=== PATIENT | female | born 1990 | race Caucasian/White ===

== ENCOUNTER 2016-08-27 06:44 | Emergency (ER) | payer OTHER ==
[2016-08-27] MEDS ORDERED: ONDANSETRON 4 MG ORAL DISINTEGRATING TAB (S0181) As Ordered ONE (07:18)
--- NOTE | 2016-08-27 07:24 | EDDOCDS ---
Nurse's Notes [facility] Name: Myranda Up Age: 25 yrs Sex: Female : 1990 Arrival Date: 08/27/2016 Time: 06:44 Bed I2 / M2 Private MD: Diagnosis: Vomiting;Diarrhea, unspecified Presentation: 08/27 06:54 Presenting complaint: Patient states: Patient with complaint of nausea, vomiting, and cf2 diarrhea that started approx 2030 last night accompanied by "chills and shakes" Patient points to periumbilical area to identify pain. States unable to "hold down nothing". Adult Sepsis Screening: The patient does not have new or worsening altered mentation. Patient's respiratory rate is less than 22. Systolic blood pressure is greater than 100. Patient has a qSOFA score of 0- Negative Sepsis Screen. Suicide/Homicide risk assessment- the patient denies having any suicidal and/or homicidal ideations and does not present with any other emotional, behavioral or mental health complaints. Status: Patient is not a respiratory services manager or dependent. Transition of care: patient was not received from another setting of care. 06:54 Acuity: LARISA Level 3 cf2 06:54 Method Of Arrival: Walkin/Carried/Asstd cf2 Triage Assessment: 06:59 General: Appears distressed, Behavior is anxious, appropriate for age, cooperative. cf2 Pain: Location: abdomen. Pt Declines HIV testing. GI: Abdomen is flat, non- distended Abd is soft Abd is tender to palpation X 4 quads. Reports cramping, diarrhea, nausea, vomiting, Pain is 8 out of 10 on a pain scale. 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 Celexa Oral once daily 2. Prilosec 20 mg Oral cpDR 1 cap once daily - PMHx: Anxiety; GERD; - Social history: Smoking status: Patient uses tobacco products, heavy tobacco smoker. Race: White, Ethnicity: Not or No barriers to communication noted, Preferred Language: Chinese. - Family history: Not pertinent. - : The pt / caregiver states he / she is not on anticoagulants. Home medication list is obtained from the patient. - Exposure Risk Screening:: None identified. Screenin:22 Screening information is obtained from the patient. Fall risk: No risks identified. mcp Assistance ADL's: requires no assistance with activities of daily living. Abuse/DV Screen: The patient / caregiver reports he/she is: not in a situation that causes fear, pain or injury. Nutritional screening: No deficits noted. Advance Directives: There is no active DNR order. home support is adequate. Assessment: 07:22 General: Appears in no apparent distress, Behavior is cooperative. Pain: Location: mcp abdomen Pain currently is 4 out of 10 on a pain scale. Neurological: No deficits noted. Respiratory: Airway is patent Respiratory effort is even, unlabored. GI: Abdomen is non- distended Bowel sounds present X 4 quads. Abd is soft X 4 quads Reports diarrhea, nausea, vomiting. Derm: Skin is pink, warm & dry. Vital Signs: 06:59 BP 131 / 60; Pulse 122; Resp 18; Temp 99.0(O); Pulse Ox 99% on R/A; Weight 77.11 kg; cf2 Height 5 ft. 5 in. (165.10 cm); Pain 8/10; 06:59 Body Mass Index 28.29 (77.11 kg, 165.10 cm) cf2 Vitals: 07:23 Log In Time: August 27, 2016 at 06:44. [facility] ED Course: 06:45 Patient visited by Eduardo Bowens, Reg. pm4 06:45 Patient moved to Waiting pm4 06:58 Triage Initiated cf2 07:01 Roberto Brown PA is PHCP. btw 07:01 Joceline Goss MD is Attending Physician. btw 07:01 Patient moved to 17 cf2 07:03 Patient moved to I2 / M2 cf2 07:06 Patient visited by Roberto Brown PA. btw 07:22 The patient / caregiver is instructed regarding the plan of care and ED course. Patient mcp has correct armband on for positive identification. Bed in low position. Call light in reach. 07:22 No IV's were initiated during this patient's visit. No procedures done that require mcp assistance. Administered Medications: 07:21 Drug: Ondansetron ODT 4 mg [ondansetron 4 mg disintegrating tablet (1 tabs)] Route: PO; mcp Order Results: There are currently no results for this order. Outcome: 07:14 Discharge ordered by Provider. btw 07:23 Discharge Assessment: patient administered narcotics - no. The following High Risk [facility] Discharge criteria are identified: None. Discharged to home ambulatory. Condition: stable. Discharge instructions given to patient, Instructed on discharge instructions, follow up and referral plans. medication usage, diet, Demonstrated understanding of instructions, medications, Pt was receptive of discharge instructions/ teaching. Prescriptions given X 1. No special radiology studies were completed. Property sent home with patient. 07:23 Patient left the ED. [facility] Signatures: Leigh Ann Lozoya RN RN Roberto Soriano PA PA btw Domonique Schultz RN RN cf2 Eduardo Bowens, Reg Reg pm4 MTDD
--- NOTE | 2016-08-27 07:24 | EDDOCDS ---
Physician Documentation [facility] Name: Myranda Up Age: 25 yrs Sex: Female : 1990 Arrival Date: 08/27/2016 Time: 06:44 Bed I2 / M2 Private MD: Disposition: 08/27/16 07:14 Discharged to Home/Self Care. Impression: Vomiting, Diarrhea, unspecified. - Condition is Stable. - Discharge Instructions: Viral Gastroenteritis, [id number]. - Prescriptions for ZOFRAN ODT 4 mg - dissolve 1 tablet by ORAL route 4 times per day As needed do not chew, do not swallow whole; 10 tablet. - Medication Reconciliation, Local Pharmacy Hours form. - Follow up: Private Physician; When: Call to arrange an appointment; Reason: Further diagnostic work-up, Recheck today's complaints, Continuance of care. - Problem is new. - Symptoms are unchanged. Historical: - Allergies: Latex; - Home Meds: 1. Celexa Oral once daily 2. Prilosec 20 mg Oral cpDR 1 cap once daily - PMHx: Anxiety; GERD; - Social history: Smoking status: Patient uses tobacco products, heavy tobacco smoker. Race: White, Ethnicity: Not or No barriers to communication noted, Preferred Language: Montenegrin. - Family history: Not pertinent. - : The pt / caregiver states he / she is not on anticoagulants. Home medication list is obtained from the patient. - Exposure Risk Screening:: None identified. 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 5 in. (165.10 cm); Pain 8/10; 06:59 Body Mass Index 28.29 (77.11 kg, 165.10 cm) cf2 MDM: 07:13 Ondansetron ODT Oral Disintegrating Tablet 4 mg PO once ordered. btw 07:23 Financial registration complete. hs2 Administered Medications: 07:21 Drug: Ondansetron ODT 4 mg [ondansetron 4 mg disintegrating tablet (1 tabs)] Route: PO; contra [facility] Signatures: Leigh Ann Lozoya RN RN Roberto Soriano PA PA btw Stanton, Hillary, Reg Reg hs2 Domonique Schultz,RN RN cf2 MTDD
--- NOTE | 2016-08-29 08:24 | EDDOCDS ---
Nurse's Notes [facility] Name: Myranda Up Age: 25 yrs Sex: Female : 1990 Arrival Date: 08/27/2016 Time: 06:44 Bed I2 / M2 Private MD: Diagnosis: Vomiting;Diarrhea, unspecified Presentation: 08/27 06:54 Presenting complaint: Patient states: Patient with complaint of nausea, vomiting, and cf2 diarrhea that started approx 2030 last night accompanied by "chills and shakes" Patient points to periumbilical area to identify pain. States unable to "hold down nothing". Adult Sepsis Screening: The patient does not have new or worsening altered mentation. Patient's respiratory rate is less than 22. Systolic blood pressure is greater than 100. Patient has a qSOFA score of 0- Negative Sepsis Screen. Suicide/Homicide risk assessment- the patient denies having any suicidal and/or homicidal ideations and does not present with any other emotional, behavioral or mental health complaints. Status: Patient is not a human services care specialist or dependent. Transition of care: patient was not received from another setting of care. 06:54 Acuity: LARISA Level 3 cf2 06:54 Method Of Arrival: Walkin/Carried/Asstd cf2 Triage Assessment: 06:59 General: Appears distressed, Behavior is anxious, appropriate for age, cooperative. cf2 Pain: Location: abdomen. Pt Declines HIV testing. GI: Abdomen is flat, non- distended Abd is soft Abd is tender to palpation X 4 quads. Reports cramping, diarrhea, nausea, vomiting, Pain is 8 out of 10 on a pain scale. 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 Celexa Oral once daily 2. Prilosec 20 mg Oral cpDR 1 cap once daily - PMHx: Anxiety; GERD; - Social history: Smoking status: Patient uses tobacco products, heavy tobacco smoker. Race: White, Ethnicity: Not or No barriers to communication noted, Preferred Language: Italian. - Family history: Not pertinent. - : The pt / caregiver states he / she is not on anticoagulants. Home medication list is obtained from the patient. - Exposure Risk Screening:: None identified. Screenin:22 Screening information is obtained from the patient. Fall risk: No risks identified. mcp Assistance ADL's: requires no assistance with activities of daily living. Abuse/DV Screen: The patient / caregiver reports he/she is: not in a situation that causes fear, pain or injury. Nutritional screening: No deficits noted. Advance Directives: There is no active DNR order. home support is adequate. Assessment: 07:22 General: Appears in no apparent distress, Behavior is cooperative. Pain: Location: mcp abdomen Pain currently is 4 out of 10 on a pain scale. Neurological: No deficits noted. Respiratory: Airway is patent Respiratory effort is even, unlabored. GI: Abdomen is non- distended Bowel sounds present X 4 quads. Abd is soft X 4 quads Reports diarrhea, nausea, vomiting. Derm: Skin is pink, warm & dry. Vital Signs: 06:59 BP 131 / 60; Pulse 122; Resp 18; Temp 99.0(O); Pulse Ox 99% on R/A; Weight 77.11 kg; cf2 Height 5 ft. 5 in. (165.10 cm); Pain 8/10; 06:59 Body Mass Index 28.29 (77.11 kg, 165.10 cm) cf2 Vitals: 07:23 Log In Time: August 27, 2016 at 06:44. [facility] ED Course: 06:45 Patient visited by Eduardo Bowens, Reg. pm4 06:45 Patient moved to Waiting pm4 06:58 Triage Initiated cf2 07:01 Roberto Brown PA is PHCP. btw 07:01 Joceline Goss MD is Attending Physician. btw 07:01 Patient moved to 17 cf2 07:03 Patient moved to I2 / M2 cf2 07:06 Patient visited by Roberto Brown PA. btw 07:22 The patient / caregiver is instructed regarding the plan of care and ED course. Patient mcp has correct armband on for positive identification. Bed in low position. Call light in reach. 07:22 No IV's were initiated during this patient's visit. No procedures done that require mcp assistance. 07:25 [facility] Payment Agreement was scanned into [employer] and attached to record. hs2 08/28 17:26 T-Sheet-- Draft Copy was scanned into [employer] and attached to record. klr Administered Medications: 02/02 07:21 Drug: Ondansetron ODT 4 mg [ondansetron 4 mg disintegrating tablet (1 tabs)] Route: PO; [facility] Order Results: There are currently no results for this order. Outcome: 07:14 Discharge ordered by Provider. bt 07:23 Discharge Assessment: patient administered narcotics - no. The following High Risk [facility] Discharge criteria are identified: None. Discharged to home ambulatory. Condition: stable. Discharge instructions given to patient, Instructed on discharge instructions, follow up and referral plans. medication usage, diet, Demonstrated understanding of instructions, medications, Pt was receptive of discharge instructions/ teaching. Prescriptions given X 1. No special radiology studies were completed. Property sent home with patient. 07:23 Patient left the ED. [facility] Signatures: Leigh Ann Lozoya RN RN Roberto Soriano PA PA btDaja Morrow, Reg Reg hs2 Desiree Aragon Christina, RN RN cf2 Eduardo Bowens, Reg Reg pm4 Chart Complete EDGAR
--- NOTE | 2016-08-29 08:24 | EDDOCDS ---
Physician Documentation [facility] Name: Myranda Up Age: 25 yrs Sex: Female : 1990 Arrival Date: 08/27/2016 Time: 06:44 Bed I2 / M2 Private MD: Disposition: 08/27/16 07:14 Discharged to Home/Self Care. Impression: Vomiting, Diarrhea, unspecified. - Condition is Stable. - Discharge Instructions: Viral Gastroenteritis, [id number]. - Prescriptions for ZOFRAN ODT 4 mg - dissolve 1 tablet by ORAL route 4 times per day As needed do not chew, do not swallow whole; 10 tablet. - Medication Reconciliation, Local Pharmacy Hours form. - Follow up: Private Physician; When: Call to arrange an appointment; Reason: Further diagnostic work-up, Recheck today's complaints, Continuance of care. - Problem is new. - Symptoms are unchanged. Historical: - Allergies: Latex; - Home Meds: 1. Celexa Oral once daily 2. Prilosec 20 mg Oral cpDR 1 cap once daily - PMHx: Anxiety; GERD; - Social history: Smoking status: Patient uses tobacco products, heavy tobacco smoker. Race: White, Ethnicity: Not or No barriers to communication noted, Preferred Language: [place] Islander. - Family history: Not pertinent. - : The pt / caregiver states he / she is not on anticoagulants. Home medication list is obtained from the patient. - Exposure Risk Screening:: None identified. 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 5 in. (165.10 cm); Pain 8/10; 06:59 Body Mass Index 28.29 (77.11 kg, 165.10 cm) cf2 MDM: 07:13 Ondansetron ODT Oral Disintegrating Tablet 4 mg PO once ordered. btw 07:23 Financial registration complete. hs2 07:25 [facility] Payment Agreement was scanned into [employer] and attached to record. hs2 08/28 17:26 T-Sheet-- Draft Copy was scanned into [employer] and attached to record. klr Administered Medications: 08/27 07:21 Drug: Ondansetron ODT 4 mg [ondansetron 4 mg disintegrating tablet (1 tabs)] Route: PO; mar[facility] Signatures: Leigh Ann Lozoya RN RN mcp Wolfenden, Brandon, PA PA btw Daja Clements, Reg Reg hs2 Desiree Aragon Christina, RN RN cf2 The chart was reviewed and I authenticate all verbal orders and agree with the evaluation and treatment provided.Attachments: 07:25 [facility] Payment Agreement hs2 08/28 17:26 T-Sheet-- Draft Copy klr Chart Complete MTDD
--- NOTE | 2016-08-29 08:24 | EDDOCDS ---
Physician Documentation [facility] Name: Myranda Up Age: 25 yrs Sex: Female : 1990 Arrival Date: 08/27/2016 Time: 06:44 Bed I2 / M2 Private MD: Disposition: 08/27/16 07:14 Discharged to Home/Self Care. Impression: Vomiting, Diarrhea, unspecified. - Condition is Stable. - Discharge Instructions: Viral Gastroenteritis, [id number]. - Prescriptions for ZOFRAN ODT 4 mg - dissolve 1 tablet by ORAL route 4 times per day As needed do not chew, do not swallow whole; 10 tablet. - Medication Reconciliation, Local Pharmacy Hours form. - Follow up: Private Physician; When: Call to arrange an appointment; Reason: Further diagnostic work-up, Recheck today's complaints, Continuance of care. - Problem is new. - Symptoms are unchanged. Historical: - Allergies: Latex; - Home Meds: 1. Celexa Oral once daily 2. Prilosec 20 mg Oral cpDR 1 cap once daily - PMHx: Anxiety; GERD; - Social history: Smoking status: Patient uses tobacco products, heavy tobacco smoker. Race: White, Ethnicity: Not or No barriers to communication noted, Preferred Language: Romanian. - Family history: Not pertinent. - : The pt / caregiver states he / she is not on anticoagulants. Home medication list is obtained from the patient. - Exposure Risk Screening:: None identified. 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 5 in. (165.10 cm); Pain 8/10; 06:59 Body Mass Index 28.29 (77.11 kg, 165.10 cm) cf2 MDM: 07:13 Ondansetron ODT Oral Disintegrating Tablet 4 mg PO once ordered. btw 07:23 Financial registration complete. hs2 07:25 [facility] Payment Agreement was scanned into [employer] and attached to record. hs2 08/28 17:26 T-Sheet-- Draft Copy was scanned into [employer] and attached to record. klr Administered Medications: 08/27 07:21 Drug: Ondansetron ODT 4 mg [ondansetron 4 mg disintegrating tablet (1 tabs)] Route: PO; marisol Signatures: Leigh Ann Lozoya RN RN mcp Wolfenden, Brandon, PA PA btw Daja Clements, Reg Reg hs2 Desiree Aragon Christina, RN RN cf2 The chart was reviewed and I authenticate all verbal orders and agree with the evaluation and treatment provided.Attachments: 07:25 [facility] Payment Agreement hs2 08/28 17:26 T-Sheet-- Draft Copy klr Chart Complete MTDD
== END 2016-08-27 07:23 | disposition home or self-care (01) ==
LOC: M ED 06:44
DX: R11.2 Nausea with vomiting, unspecified (principal); R19.7 Diarrhea, unspecified; F41.9 Anxiety disorder, unspecified; K21.9 Gastro-esophageal reflux disease without esophagitis; F17.210 Nicotine dependence, cigarettes, uncomplicated; Z79.899 Other long term (current) drug therapy; Z91.040 Latex allergy status

== ENCOUNTER → 2016-09-12 | Outpatient (REF) | payer OTHER | LOC: M LAB REF 10:17 | PROVIDERS: ATTEND Physician Assistant Medical | DX: N39.0 Urinary tract infection, site not specified (principal) ==

== ENCOUNTER → 2016-11-17 | Outpatient (REF) | payer OTHER | LOC: M LAB REF 20:43 | PROVIDERS: ATTEND Physician Assistant | DX: R10.30 Lower abdominal pain, unspecified (principal) ==

== ENCOUNTER → 2017-02-22 | Outpatient (REF) | payer OTHER ==
[~2017-02-22] MED LIST: CELE10TA PO; HYOS1TAB PO; MIRA3350 PO; ULTR50TA8 PO
[2017-02-22 13:21] LABS: MEAN CORPUSCULAR HEMOGLOBIN 30.3 pg (27.0-33.0); MEAN CORPUSCULAR HGB CONC 33.6 g/dl (32.0-36.5); MEAN CORPUSCULAR VOLUME 90.3 fl (80.0-96.0); WHITE BLOOD COUNT 6.4 K/mm3 (4.0-10.0)
[2017-02-22 13:51] LABS: ALBUMIN 4.1 GM/DL (3.2-5.2); ALBUMIN/GLOBULIN RATIO 1.52 (1.00-1.93); ALKALINE PHOSPHATASE 61 U/L (45-117); ALT/SGPT 21 U/L (12-78); ANION GAP 10 MEQ/L (8-16); AST/SGOT 12 U/L (15-37); BILIRUBIN,TOTAL 0.8 MG/DL (0.2-1.0); BLOOD UREA NITROGEN 11 MG/DL (7-18); CALCIUM LEVEL 9.5 MG/DL (8.5-10.1); CARBON DIOXIDE LEVEL 26 MEQ/L (21-32); CHLORIDE LEVEL 104 MEQ/L (98-107); CREATININE FOR GFR 0.54 MG/DL (0.55-1.02); GLOMERULAR FILTRATION RATE > 60.0 (>60); GLUCOSE, FASTING 76 MG/DL (70-105); POTASSIUM SERUM 3.6 MEQ/L (3.5-5.1); SODIUM LEVEL 140 MEQ/L (136-145); TOTAL PROTEIN 6.8 GM/DL (6.4-8.2)
== END ==
LOC: M SFHCPLAZ 10:28
PROVIDERS: ATTEND Nurse Practitioner Adult Health
DX: Z00.00 Encounter for general adult medical examination without abnormal findings (principal); Z83.49 Family history of other endocrine, nutritional and metabolic diseases

== ENCOUNTER 2017-04-09 22:58 | Emergency (ER) | payer OTHER ==
[~2017-04-09] VITALS: Ht 162.6 cm; Wt 62.7 kg
[2017-04-09] MEDS ORDERED: CELE10TA PO (23:13)
[2017-04-10] MEDS ORDERED: NS 1,000 ML IV ONE (00:15)
[2017-04-10 00:40] LABS: BASO % 0.5 % (0.0-1.0); EOS # 0.2 K/mm3 (0.0-0.50); EOS % 2.3 % (0.0-3.0); LARGE UNSTAINED CELL # 0.1 K/mm3 (0.0-0.4); LYMPH # 2.3 K/mm3 (1.5-6.5); MEAN CORPUSCULAR HEMOGLOBIN 30.3 pg (27.0-33.0); MEAN CORPUSCULAR HGB CONC 33.9 g/dl (32.0-36.5); MEAN CORPUSCULAR VOLUME 89.6 fl (80.0-96.0); MONO # 0.6 K/mm3 (0.0-0.8); MONO % 6.1 % (0.0-5.0); NEUTROPHILS # 6.8 K/mm3 (1.8-7.7); NEUTROPHILS % 68.1 % (36.0-66.0); PLATELET COUNT, AUTOMATED 251 k/mm3 (150-450); RED CELL DISTRIBUTION WIDTH 12.3 % (11.5-14.5)
[2017-04-10 00:47] LABS: CONTROL LINE HCG INT CTR LINE PRESENT
[2017-04-10 00:55] LABS: ALBUMIN 3.6 GM/DL (3.2-5.2); ALBUMIN/GLOBULIN RATIO 1.29 (1.00-1.93); ALKALINE PHOSPHATASE 53 U/L (45-117); ALT/SGPT 20 U/L (12-78); ANION GAP 8 MEQ/L (8-16); AST/SGOT 14 U/L (15-37); BILIRUBIN,DIRECT < 0.1 MG/DL (0.0-0.2); BILIRUBIN,TOTAL 0.3 MG/DL (0.2-1.0); BLOOD UREA NITROGEN 15 MG/DL (7-18); CALCIUM LEVEL 9.2 MG/DL (8.5-10.1); CARBON DIOXIDE LEVEL 26 MEQ/L (21-32); CHLORIDE LEVEL 107 MEQ/L (98-107); GLOMERULAR FILTRATION RATE > 60.0 (>60); GLUCOSE, FASTING 98 MG/DL (70-105); POTASSIUM SERUM 3.8 MEQ/L (3.5-5.1); SODIUM LEVEL 141 MEQ/L (136-145); TOTAL PROTEIN 6.4 GM/DL (6.4-8.2)
[2017-04-10] MEDS ORDERED: HYOS1TAB PO (03:27)
[2017-04-10 04:06] VITALS: BP 109/63
[2017-04-11] MEDS ORDERED: ULTR50TA8 PO (11:24)
[2017-04-11] MEDS ORDERED: MIRA3350 PO (11:24)
== END 2017-04-10 04:09 | disposition home or self-care (01) ==
LOC: M ED 22:58
DX: R10.11 Right upper quadrant pain (principal); Z91.010 Allergy to peanuts; Z79.899 Other long term (current) drug therapy

== ENCOUNTER 2017-04-11 09:25 | Emergency (ER) | payer OTHER ==
[~2017-04-11] VITALS: Ht 162.6 cm; Wt 62.7 kg
[~2017-04-11 09:25] MED LIST changes: -MIRA3350 PO; -ULTR50TA8 PO
[2017-04-11] MEDS ORDERED: NS 1,000 ML IV ONE (09:45)
[2017-04-11] MEDS ORDERED: ONDANSETRON 4MG/2ML VIAL (J2405) IV ONE (09:45)
[2017-04-11] MEDS ORDERED: KETOROLAC 30 MG/ML VIAL (J1885) IV ONE (09:45)
[2017-04-11 10:20] LABS: BASO % 0.3 % (0.0-1.0); EOS # 0.4 K/mm3 (0.0-0.50); EOS % 4.1 % (0.0-3.0); LARGE UNSTAINED CELL % 0.4 % (0.0-4.0); LYMPH # 1.6 K/mm3 (1.5-6.5); LYMPH % 15.9 % (24.0-44.0); MEAN CORPUSCULAR HEMOGLOBIN 29.8 pg (27.0-33.0); MEAN CORPUSCULAR HGB CONC 33.3 g/dl (32.0-36.5); MEAN CORPUSCULAR VOLUME 89.7 fl (80.0-96.0); MONO # 0.3 K/mm3 (0.0-0.8); MONO % 2.7 % (0.0-5.0); NEUTROPHILS # 7.4 K/mm3 (1.8-7.7); NEUTROPHILS % 76.7 % (36.0-66.0); PLATELET COUNT, AUTOMATED 226 k/mm3 (150-450); RED CELL DISTRIBUTION WIDTH 12.3 % (11.5-14.5); WHITE BLOOD COUNT 9.6 K/mm3 (4.0-10.0)
[2017-04-11 10:26] LABS: ALBUMIN 3.8 GM/DL (3.2-5.2); ALBUMIN/GLOBULIN RATIO 1.36 (1.00-1.93); ALKALINE PHOSPHATASE 52 U/L (45-117); ALT/SGPT 22 U/L (12-78); AMYLASE 27 U/L (25-115); ANION GAP 11 MEQ/L (8-16); AST/SGOT 12 U/L (15-37); BILIRUBIN,DIRECT 0.2 MG/DL (0.0-0.2); BILIRUBIN,TOTAL 0.6 MG/DL (0.2-1.0); BLOOD UREA NITROGEN 15 MG/DL (7-18); CALCIUM LEVEL 9.3 MG/DL (8.5-10.1); CARBON DIOXIDE LEVEL 22 MEQ/L (21-32); CHLORIDE LEVEL 110 MEQ/L (98-107); CREATININE FOR GFR 0.53 MG/DL (0.55-1.02); GLOMERULAR FILTRATION RATE > 60.0 (>60); GLUCOSE, FASTING 98 MG/DL (70-105); POTASSIUM SERUM 3.6 MEQ/L (3.5-5.1); SODIUM LEVEL 143 MEQ/L (136-145); TOTAL PROTEIN 6.6 GM/DL (6.4-8.2)
[2017-04-11] MEDS ORDERED: ISOVUE-370 76% 100ML VIAL (Q9967) As Ordered ONE (10:47)
--- NOTE | 2017-04-11 11:20 | REP ---
Clinical: Right lower quadrant pain. Technique: Axial contrast enhanced images from the lung bases to the pubic symphysis using 100 ml Isovue 370 intravenous contrast material with coronal and sagittal re-formations. Findings: 2.6 cm rim enhancing, involuting right ovarian cyst with small amount of free fluid is consistent with ruptured ovarian cyst and likely related to patient's symptoms. Liver, spleen, pancreas, gallbladder, bilateral adrenal glands and kidneys are normal. The enteric system is without obstruction or acute inflammatory process. Normal terminal ileum and appendix are identified in the right lower quadrant. Pelvis demonstrates normal uterus and left adnexa. No free air. No mass lesion. Vasculature is normal. Surrounding musculoskeletal structures are intact. Impression: 1. Findings suggest a 2.6 cm ruptured right ovarian cyst with small amount of adjacent fluid likely related to patient's symptoms. 2. Remainder of the examination is normal. Signed by Robert Berumen MD 04/11/2017 11:11 A
[2017-04-11] MEDS ORDERED: MIRA3350 PO (11:24)
[2017-04-11] MEDS ORDERED: ULTR50TA8 PO (11:24)
[2017-04-11 11:29] VITALS: BP 108/70
== END 2017-04-11 11:40 | disposition home or self-care (01) ==
LOC: M ED 09:25
DX: N83.201 Unspecified ovarian cyst, right side (principal); R56.9 Unspecified convulsions; K58.9 Irritable bowel syndrome, unspecified; F99 Mental disorder, not otherwise specified; F17.210 Nicotine dependence, cigarettes, uncomplicated; Z91.040 Latex allergy status; Z79.899 Other long term (current) drug therapy
CPT/HCPCS: 74177; 80048; 80076; 81001; 81025; 82150; 83690; 85025; 96374; 96375; 99284; J1885; J2405; Q9967

== ENCOUNTER → 2017-05-04 | Outpatient (REF) | payer OTHER ==
[~2017-05-04] MED LIST changes: +MIRA3350 PO; +ULTR50TA8 PO
[2017-05-04 19:41] LABS: MEAN CORPUSCULAR HEMOGLOBIN 29.6 pg (27.0-33.0); MEAN CORPUSCULAR HGB CONC 33.7 g/dl (32.0-36.5); MEAN CORPUSCULAR VOLUME 87.8 fl (80.0-96.0); RED CELL DISTRIBUTION WIDTH 11.9 % (11.5-14.5); WHITE BLOOD COUNT 11.2 10^3/uL (4.0-10.0)
[2017-05-04 20:07] LABS: HCG, SERUM QUANTITATIVE 91437 MIU/ML
[2017-05-05 11:04] LABS: HBsAg Prenatal NEGATIVE (NEGATIVE)
== END ==
LOC: M LAB REF 16:30
PROVIDERS: ATTEND Obstetrics & Gynecology
DX: O36.80X0 Pregnancy with inconclusive fetal viability, not applicable or unspecified (principal)

== ENCOUNTER → 2017-06-15 | Outpatient (REF) | payer OTHER | LOC: M LAB REF 16:31 | PROVIDERS: ATTEND Advanced Practice Midwife | DX: Z34.91 Encounter for supervision of normal pregnancy, unspecified, first trimester (principal); Z3A.00 Weeks of gestation of pregnancy not specified ==

== ENCOUNTER 2017-10-03 17:13 | Outpatient (CLI) | payer OTHER ==
[2017-10-03] MEDS: LACTATED RINGER'S 1000 ML IV (18:55)
[2017-10-03] MEDS: TERBUTALINE SULFATE 1 MG/ML VIAL (J3105) SC (19:19)
== END 2017-10-03 20:30 | disposition home or self-care (01) ==
LOC: M LDO 17:13
DX: O47.03 False labor before 37 completed weeks of gestation, third trimester (principal); Z3A.28 28 weeks gestation of pregnancy; Z91.040 Latex allergy status
CPT/HCPCS: J3105

== ENCOUNTER 2017-10-09 21:49 | Outpatient (CLI) | payer OTHER | END 2017-10-10 00:13 | disposition home or self-care (01) | LOC: M LDO 21:49 | DX: O60.03 Preterm labor without delivery, third trimester (principal); Z3A.29 29 weeks gestation of pregnancy; Z79.899 Other long term (current) drug therapy; Z91.040 Latex allergy status ==

== ENCOUNTER → 2017-11-25 | Outpatient (CLI) | payer OTHER ==
[2017-11-25 13:35] LABS: HEMATOCRIT 39.9 % (36.0-47.0); HEMOGLOBIN 13.1 g/dl (12.0-15.5); MEAN CORPUSCULAR HGB CONC 32.8 g/dl (32.0-36.5); MEAN CORPUSCULAR VOLUME 88.5 fl (80.0-96.0); PLATELET COUNT, AUTOMATED 313 10^3/uL (150-450); RED BLOOD COUNT 4.51 10^6/uL (4.00-5.40); RED CELL DISTRIBUTION WIDTH 12.9 % (11.5-14.5); WHITE BLOOD COUNT 13.6 10^3/uL (4.0-10.0)
[2017-11-25 14:37] LABS: GLUCOSE CHALLENGE TEST 1 HOUR 151 MG/DL (LESS THAN 140)
== END ==
LOC: M WUC 09:43
DX: Z36.85 Encounter for antenatal screening for Streptococcus B (principal); Z3A.25 25 weeks gestation of pregnancy
CPT/HCPCS: 82950

== ENCOUNTER 2018-02-18 10:24 | Day surgery (SDC) | payer OTHER ==
[~2018-02-18 10:24] MED LIST changes: -CELE10TA PO; +GLYCOPYRROLATE INJ 0.2 MG/ML 2 ML VIAL As Ordered; -HYOS1TAB PO; +KETOROLAC 60 MG/2 ML VIAL (J1885) As Ordered; +LIDOCAINE 2% INJ 100 MG/5 ML SDV (FOR ANES.) As Ordered; +MIDAZOLAM INJ 2 MG/2 ML VIAL (J2250) As Ordered; -MIRA3350 PO; +NEOSTIGMINE 10 MG/10 ML VIAL (J2710) As Ordered; +ONDANSETRON 4MG/2ML VIAL (J2405) As Ordered; +PROPOFOL 200 MG/20 ML VIAL As Ordered; +ROCURONIUM BROMIDE 50 MG/5 ML VIAL As Ordered; -ULTR50TA8 PO; +dexameTHASONE 4 MG/ML 1ML VIAL (J1100) As Ordered; +fentaNYL 100 MCG/2 ML INJECTION (J3010) As Ordered
[2018-02-18] MEDS ORDERED: ACETAMINOPHEN 650 MG SUPP PR (10:45)
[2018-02-18 11:03] LABS: CONTROL LINE UCG INT CTR LINE PRESENT; URINE PREG TEST NEGATIVE (NEGATIVE)
[2018-02-18 11:09] LABS: HEMATOCRIT 42.5 % (36.0-47.0); HEMOGLOBIN 14.1 g/dl (12.0-15.5); MEAN CORPUSCULAR HEMOGLOBIN 28.3 pg (27.0-33.0); MEAN CORPUSCULAR HGB CONC 33.2 g/dl (32.0-36.5); MEAN CORPUSCULAR VOLUME 85.3 fl (80.0-96.0); PLATELET COUNT, AUTOMATED 342 10^3/uL (150-450); RED BLOOD COUNT 4.98 10^6/uL (4.00-5.40); RED CELL DISTRIBUTION WIDTH 12.9 % (11.5-14.5); WHITE BLOOD COUNT 7.5 10^3/uL (4.0-10.0)
[2018-02-18] MEDS: LR 1,000 ML IV (11:11)
[2018-02-18] MEDS ORDERED: IBUPROFEN 800 MG TAB PO (12:00)
[2018-02-18] MEDS: ACETAMINOPHEN 650 MG SUPP As Ordered (12:00)
[2018-02-18] MEDS: BUPIVACAINE/EPIN 0.25% 30 ML VIAL As Ordered (12:23)
[2018-02-18] MEDS: fentaNYL 100 MCG/2 ML INJECTION (J3010) IV ×3 (12:52→13:10)
[2018-02-18] MEDS ORDERED: ONDANSETRON 4MG/2ML VIAL (J2405) IV (13:00)
[2018-02-18] MEDS ORDERED: LR 1,000 ML IV (13:00)
[2018-02-18] MEDS ORDERED: PERCOCET 5MG/325MG TAB PO (13:00)
[2018-02-18] MEDS: PERCOCET 5MG/325MG TAB PO ×2 (13:05→13:42)
== END 2018-02-18 15:00 | disposition home or self-care (01) ==
LOC: M SDC 10:24
DX: Z30.2 Encounter for sterilization (principal); K21.9 Gastro-esophageal reflux disease without esophagitis; F41.9 Anxiety disorder, unspecified; F17.210 Nicotine dependence, cigarettes, uncomplicated; R56.9 Unspecified convulsions; Z79.899 Other long term (current) drug therapy; Z91.040 Latex allergy status
CPT/HCPCS: 58671

== ENCOUNTER 2018-04-22 12:27 | Emergency (ER) | payer OTHER ==
[2018-04-22 12:58] LABS: BASO % 0.5 % (0.0-1.0); EOS # 0.1 10^3/uL (0.0-0.50); EOS % 1.4 % (0.0-3.0); HEMATOCRIT 41.6 % (36.0-47.0); IMMATURE GRANULOCYTE % 0.4 % (0-3.0); LYMPH # 2.2 10^3/uL (1.5-6.5); MEAN CORPUSCULAR HEMOGLOBIN 29.2 pg (27.0-33.0); MEAN CORPUSCULAR HGB CONC 33.7 g/dl (32.0-36.5); MEAN CORPUSCULAR VOLUME 86.8 fl (80.0-96.0); MONO # 0.4 10^3/uL (0.0-0.8); MONO % 5.1 % (0.0-5.0); NEUTROPHILS # 5.1 10^3/uL (1.8-7.7); NEUTROPHILS % 64.6 % (36.0-66.0); PLATELET COUNT, AUTOMATED 369 10^3/uL (150-450); RED BLOOD COUNT 4.79 10^6/uL (4.00-5.40); WHITE BLOOD COUNT 7.9 10^3/uL (4.0-10.0)
[2018-04-22 13:16] LABS: CONTROL LINE HCG INT CTR LINE PRESENT; HCG, SERUM QUALITATIVE NEGATIVE (NEGATIVE)
== END 2018-04-22 15:13 | disposition home or self-care (01) ==
LOC: M ED 12:27
DX: N92.0 Excessive and frequent menstruation with regular cycle (principal); N83.202 Unspecified ovarian cyst, left side; F17.200 Nicotine dependence, unspecified, uncomplicated; F41.9 Anxiety disorder, unspecified; Z98.51 Tubal ligation status; Z91.040 Latex allergy status
CPT/HCPCS: 76856

== ENCOUNTER → 2018-05-13 | Outpatient (REF) | payer OTHER ==
[2018-05-13 17:56] LABS: APPEARANCE, URINE CLEAR (CLEAR); BACTERIA, URINE AUTO NEGATIVE (NEGATIVE); BILIRUBIN, URINE AUTO NEGATIVE (NEGATIVE); BLOOD, URINE BLOOD NEGATIVE (NEGATIVE); COLOR, URINE YELLOW (YELLOW); GLUCOSE, URINE (UA) AUTO NEGATIVE (NEGATIVE); KETONE, URINE AUTO NEGATIVE (NEGATIVE); LEUKOCYTE ESTERASE, URINE AUTO NEGATIVE (NEGATIVE); NITRITE, URINE AUTO NEGATIVE (NEGATIVE); PROTEIN, URINE AUTO NEGATIVE (NEGATIVE); RBC, URINE AUTO 0 /HPF (0-3); SPECIFIC GRAVITY URINE AUTO 1.025 (1.002-1.035); SQUAMOUS EPITHELIAL CELL UR AU 2 /HPF (0-6); WBC, URINE AUTO 1 /HPF (0-3)
== END ==
LOC: M LAB REF 17:39
DX: N39.0 Urinary tract infection, site not specified (principal)
CPT/HCPCS: 81001

== ENCOUNTER 2018-05-28 08:30 | Emergency (ER) | payer OTHER | END 2018-05-28 09:06 | disposition home or self-care (01) | LOC: M ED 08:30 | DX: J06.9 Acute upper respiratory infection, unspecified (principal); K04.7 Periapical abscess without sinus; Z91.040 Latex allergy status; F17.210 Nicotine dependence, cigarettes, uncomplicated | CPT/HCPCS: 71046 ==

== ENCOUNTER 2018-07-15 08:10 | Emergency (ER) | payer OTHER ==
[2018-07-15 08:43] LABS: APPEARANCE, URINE CLEAR (CLEAR); BACTERIA, URINE AUTO NEGATIVE (NEGATIVE); BILIRUBIN, URINE AUTO NEGATIVE (NEGATIVE); BLOOD, URINE BLOOD NEGATIVE (NEGATIVE); COLOR, URINE YELLOW (YELLOW); GLUCOSE, URINE (UA) AUTO NEGATIVE (NEGATIVE); KETONE, URINE AUTO NEGATIVE (NEGATIVE); LEUKOCYTE ESTERASE, URINE AUTO NEGATIVE (NEGATIVE); MUCUS, URINE SMALL (NEGATIVE); NITRITE, URINE AUTO NEGATIVE (NEGATIVE); PROTEIN, URINE AUTO NEGATIVE (NEGATIVE); RBC, URINE AUTO 1 /HPF (0-3); SPECIFIC GRAVITY URINE AUTO 1.015 (1.002-1.035); SQUAMOUS EPITHELIAL CELL UR AU 1 /HPF (0-6); UROBILINOGEN, URINE AUTO 0.2 mg/dL (0.0-2.0); WBC, URINE AUTO 0 /HPF (0-3)
[2018-07-15 08:49] LABS: HEMATOCRIT 42.2 % (36.0-47.0); HEMOGLOBIN 14.5 g/dl (12.0-15.5); MEAN CORPUSCULAR HEMOGLOBIN 29.4 pg (27.0-33.0); MEAN CORPUSCULAR HGB CONC 34.4 g/dl (32.0-36.5); MEAN CORPUSCULAR VOLUME 85.6 fl (80.0-96.0); PLATELET COUNT, AUTOMATED 315 10^3/uL (150-450); RED BLOOD COUNT 4.93 10^6/uL (4.00-5.40); RED CELL DISTRIBUTION WIDTH 12.3 % (11.5-14.5); WHITE BLOOD COUNT 8.1 10^3/uL (4.0-10.0)
[2018-07-15 09:18] LABS: CONTROL LINE HCG INT CTR LINE PRESENT; HCG, SERUM QUALITATIVE NEGATIVE (NEGATIVE)
[2018-07-15 10:14] LABS: ANION GAP 10 MEQ/L (8-16); BLOOD UREA NITROGEN 9 MG/DL (7-18); CALCIUM LEVEL 9.7 MG/DL (8.5-10.1); CARBON DIOXIDE LEVEL 23 MEQ/L (21-32); CHLORIDE LEVEL 107 MEQ/L (98-107); CREATININE FOR GFR 0.56 MG/DL (0.55-1.30); GLOMERULAR FILTRATION RATE > 60.0 (>60); GLUCOSE, FASTING 98 MG/DL (70-100); POTASSIUM SERUM 4.2 MEQ/L (3.5-5.1); SODIUM LEVEL 140 MEQ/L (136-145)
[2018-07-15] MEDS ORDERED: ISOVUE-370 76% 100ML VIAL (Q9967) As Ordered (10:25)
== END 2018-07-15 11:14 | disposition home or self-care (01) ==
LOC: M ED 08:10
DX: R10.32 Left lower quadrant pain (principal); R56.9 Unspecified convulsions; F41.9 Anxiety disorder, unspecified; Z72.0 Tobacco use; Z91.040 Latex allergy status
CPT/HCPCS: Q9967

== ENCOUNTER 2018-08-25 13:25 | Emergency (ER) | payer OTHER, SELFPAY ==
[~2018-08-25] VITALS: Ht 162.6 cm; Wt 74.5 kg
[2018-08-25 13:25] VITALS: BP 127/59
[~2018-08-25 13:25] MED LIST changes: +AMOX500C PO; +CELE10TA PO; +CITA10TA5; -GLYCOPYRROLATE INJ 0.2 MG/ML 2 ML VIAL As Ordered; +HYOS1TAB PO; +IBUP80TA PO; -KETOROLAC 60 MG/2 ML VIAL (J1885) As Ordered; -LIDOCAINE 2% INJ 100 MG/5 ML SDV (FOR ANES.) As Ordered; -MIDAZOLAM INJ 2 MG/2 ML VIAL (J2250) As Ordered; +MIRA3350 PO; +MOTR200T44 PO; -NEOSTIGMINE 10 MG/10 ML VIAL (J2710) As Ordered; -ONDANSETRON 4MG/2ML VIAL (J2405) As Ordered; +PRED20TA PO; +PRENTAB9 PO; -PROPOFOL 200 MG/20 ML VIAL As Ordered; +ROBI30SU PO; -ROCURONIUM BROMIDE 50 MG/5 ML VIAL As Ordered; +TRAM50TA2 PO; +TYLE325T5 PO; +ULTR50TA8 PO; -dexameTHASONE 4 MG/ML 1ML VIAL (J1100) As Ordered; -fentaNYL 100 MCG/2 ML INJECTION (J3010) As Ordered
[2018-08-25 14:24] LABS: INFLUENZA A AMPLIFICATION NEGATIVE (NEGATIVE); INFLUENZA B AMPLIFICATION NEGATIVE (NEGATIVE)
[2018-08-25] MEDS ORDERED: AUGM875T28 PO (14:42)
== END 2018-08-25 15:00 | disposition home or self-care (01) ==
LOC: M ED 13:25
DX: J32.9 Chronic sinusitis, unspecified (principal); F41.9 Anxiety disorder, unspecified; R56.9 Unspecified convulsions; Z91.040 Latex allergy status; F17.210 Nicotine dependence, cigarettes, uncomplicated

== ENCOUNTER 2018-10-22 06:45 | Emergency (ER) | payer SELFPAY ==
[~2018-10-22] VITALS: Ht 162.6 cm; Wt 77.3 kg
[~2018-10-22 06:45] MED LIST changes: +AUGM875T28 PO
[2018-10-22 07:39] LABS: INFLUENZA A AMPLIFICATION NEGATIVE (NEGATIVE); INFLUENZA B AMPLIFICATION NEGATIVE (NEGATIVE)
[2018-10-22] MEDS ORDERED: ACETAMINOPHEN 325 MG TAB PO ONE (07:45)
[2018-10-22] MEDS ORDERED: BENZ200C70 PO (08:28)
[2018-10-22] MEDS ORDERED: IBUP-1022 PO (08:28)
[2018-10-22] MEDS ORDERED: AFRI0.0511 (08:28)
[2018-10-22] MEDS ORDERED: MUCI600T37 PO (08:28)
[2018-10-22 08:35] VITALS: BP 114/60
[2018-10-27] MEDS ORDERED: CLAR1TAB2 PO (08:13)
== END 2018-10-22 08:35 | disposition home or self-care (01) ==
LOC: M ED 06:45
DX: J06.9 Acute upper respiratory infection, unspecified (principal); F17.200 Nicotine dependence, unspecified, uncomplicated; Z91.040 Latex allergy status

== ENCOUNTER 2018-11-12 19:41 | Emergency (ER) | payer SELFPAY ==
[~2018-11-12] VITALS: Ht 162.6 cm; Wt 79.5 kg
[2018-11-12 19:41] VITALS: BP 131/75
[~2018-11-12 19:41] MED LIST changes: +AFRI0.0511; +BENZ200C70 PO; +CLAR1TAB2 PO; +IBUP-1022 PO; +MUCI600T37 PO
[2018-11-12] MEDS ORDERED: IBUP-1022 PO (19:52)
[2018-11-12] MEDS ORDERED: TRAM50TA2 PO (20:13)
[2018-11-12] MEDS ORDERED: PENI500T PO (20:13)
[2018-11-12] MEDS ORDERED: traMADol 50 MG TAB (BULK 4 TAB ED) PO ONE (20:30)
[2018-11-12] MEDS ORDERED: PENICILLIN V POTASSIUM 500 MG TAB PO ONE (20:30)
== END 2018-11-12 20:35 | disposition home or self-care (01) ==
LOC: M ED 19:41
DX: K08.89 Other specified disorders of teeth and supporting structures (principal); K04.7 Periapical abscess without sinus; Z87.891 Personal history of nicotine dependence; Z91.040 Latex allergy status

== ENCOUNTER 2019-01-16 10:37 | Emergency (ER) | payer SELFPAY ==
[~2019-01-16] VITALS: Ht 162.6 cm; Wt 80.0 kg
[~2019-01-16 10:37] MED LIST changes: +PENI500T PO
[2019-01-16 10:38] VITALS: BP 128/71
[2019-01-16] MEDS ORDERED: AUGM875T28 PO (11:31)
[2019-01-16] MEDS ORDERED: NAPR-837 PO (11:31)
== END 2019-01-16 11:38 | disposition home or self-care (01) ==
LOC: M ED 10:37
DX: K04.7 Periapical abscess without sinus (principal); K02.9 Dental caries, unspecified

== ENCOUNTER 2019-01-28 20:21 | Emergency (ER) | payer OTHER, SELFPAY ==
[~2019-01-28] VITALS: Ht 162.6 cm; Wt 80.0 kg
[~2019-01-28 20:21] MED LIST changes: +NAPR-837 PO
[2019-01-28 22:18] VITALS: BP 128/65
[2019-01-28] MEDS ORDERED: DIFL150T PO (22:22)
--- NOTE | 2019-01-29 14:03 | REP ---
Clinical: Trauma centered at the fifth toe. Technique: AP, lateral, bilateral oblique views right foot . Findings: The osseous structures and joint spaces are intact and normal. There is no evidence for acute fracture or dislocation. Surrounding soft tissues are unremarkable. No subcutaneous emphysema or radiodense foreign body. Impression: Normal right foot series . No acute fracture or dislocation. Electronically Signed by Robert Berumen MD 01/29/2019 07:44 A
[2019-02-16] MEDS ORDERED: SERT50TA29 (09:56)
== END 2019-01-28 22:30 | disposition home or self-care (01) ==
LOC: M ED 20:21
DX: S90.121A Contusion of right lesser toe(s) without damage to nail, initial encounter (principal); W22.8XXA Striking against or struck by other objects, initial encounter; Y92.89 Other specified places as the place of occurrence of the external cause; B37.3 Candidiasis of vulva and vagina; K21.9 Gastro-esophageal reflux disease without esophagitis; F41.9 Anxiety disorder, unspecified; Z91.040 Latex allergy status; F17.210 Nicotine dependence, cigarettes, uncomplicated

== ENCOUNTER 2019-02-16 09:51 | Emergency (ER) | payer OTHER ==
[~2019-02-16] VITALS: Ht 162.6 cm; Wt 78.6 kg
[~2019-02-16 09:51] MED LIST changes: +DIFL150T PO
[2019-02-16] MEDS ORDERED: SERT-155 (09:56)
--- NOTE | 2019-02-16 10:41 | REP ---
Right knee five views : There is no fracture or dislocation. Mineralization and joint spaces are normal. There are no calcifications or foreign bodies. Impression: Negative right knee . Electronically Signed by Moy Maldonado MD 02/16/2019 10:33 A
[2019-02-16 10:56] VITALS: BP 108/58
[2019-02-16] MEDS ORDERED: IBUPROFEN 600 MG TAB PO ONE (11:15)
[2019-02-16] MEDS ORDERED: IBUP-1022 PO (11:16)
== END 2019-02-16 11:28 | disposition home or self-care (01) ==
LOC: M ED 09:51
DX: M25.561 Pain in right knee (principal); R05 Cough; K21.9 Gastro-esophageal reflux disease without esophagitis; R56.9 Unspecified convulsions; F17.210 Nicotine dependence, cigarettes, uncomplicated; Z91.040 Latex allergy status; Z79.899 Other long term (current) drug therapy

== ENCOUNTER 2019-02-20 06:00 | Emergency (ER) | payer OTHER ==
[~2019-02-20] VITALS: Ht 162.6 cm; Wt 81.2 kg
[~2019-02-20 06:00] MED LIST changes: +SERT-155
[2019-02-20 06:01] VITALS: BP 119/66
[2019-02-20] MEDS ORDERED: BENZOCAINE 20% GEL 9GM TUBE (ANBESOL MAX STRENGTH) TOP ONE (07:00)
[2019-02-20] MEDS ORDERED: IBUPROFEN 800 MG TAB PO ONE (07:00)
[2019-02-20] MEDS ORDERED: IBUP80TA PO (07:09)
[2019-02-20] MEDS ORDERED: AUGM875T28 PO (07:09)
== END 2019-02-20 08:36 | disposition home or self-care (01) ==
LOC: M ED 06:00
DX: K02.9 Dental caries, unspecified (principal); K04.7 Periapical abscess without sinus; L03.211 Cellulitis of face; K21.9 Gastro-esophageal reflux disease without esophagitis; F41.9 Anxiety disorder, unspecified; Z79.899 Other long term (current) drug therapy

== ENCOUNTER 2019-06-16 08:33 | Emergency (ER) | payer OTHER, SELFPAY ==
[~2019-06-16] VITALS: Ht 162.6 cm; Wt 76.6 kg
[~2019-06-16 08:33] MED LIST changes: -SERT-155; +SERT50TA29
--- NOTE | 2019-06-16 11:01 | REP ---
CHEST, TWO VIEWS: There is no evidence of acute infiltrate. No pleural effusion is seen. The heart is normal in size. The mediastinal silhouette is unremarkable. The visualized osseous structures are intact. IMPRESSION: No acute pulmonary disease. Electronically Signed by Moy Kern MD 06/19/2019 09:09 A
[2019-06-16] MEDS ORDERED: CLEO300C2 PO (11:33)
[2019-06-16] MEDS ORDERED: PENI500T PO (11:38)
[2019-06-16 11:41] VITALS: BP 107/64
[2019-06-16] MEDS ORDERED: KETOROLAC TROMETHAMINE 10 MG TAB PO ONE (11:45)
[2019-06-16] MEDS ORDERED: ACETAMINOPHEN 325 MG TAB PO ONE (11:45)
== END 2019-06-16 11:58 | disposition home or self-care (01) ==
LOC: M ED 08:33
DX: K02.9 Dental caries, unspecified (principal); J06.9 Acute upper respiratory infection, unspecified; Z91.040 Latex allergy status; F17.210 Nicotine dependence, cigarettes, uncomplicated

== ENCOUNTER 2019-08-19 22:09 | Emergency (ER) | payer OTHER ==
[~2019-08-19] VITALS: Ht 162.6 cm; Wt 80.6 kg
[~2019-08-19 22:09] MED LIST changes: +CLEO300C2 PO
[2019-08-19] MEDS ORDERED: AMOX875T PO (22:14)
[2019-08-19] MEDS ORDERED: NS 1,000 ML IV ONE (23:00)
[2019-08-19] MEDS ORDERED: KETOROLAC 30 MG/ML VIAL (J1885) IV ONE (23:00)
[2019-08-19] MEDS ORDERED: ONDANSETRON 4MG/2ML VIAL (J2405) IV ONE (23:00)
[2019-08-19 23:32] LABS: BASO % 0.3 % (0.0-1.0); EOS # 0.1 10^3/uL (0.0-0.5); EOS % 0.4 % (0.0-3.0); HEMATOCRIT 43.7 % (36.0-47.0); HEMOGLOBIN 14.3 g/dl (12.0-15.5); LYMPH # 2.7 10^3/uL (1.5-5.0); LYMPH % 19.5 % (24.0-44.0); MEAN CORPUSCULAR HEMOGLOBIN 29.1 pg (27.0-33.0); MEAN CORPUSCULAR HGB CONC 32.7 g/dl (32.0-36.5); MEAN CORPUSCULAR VOLUME 88.8 fl (80.0-96.0); MONO # 0.6 10^3/uL (0.0-0.8); MONO % 4.6 % (0.0-5.0); NEUTROPHILS # 10.5 10^3/uL (1.5-8.5); NEUTROPHILS % 74.8 % (36.0-66.0); PLATELET COUNT, AUTOMATED 333 10^3/uL (150-450); RED BLOOD COUNT 4.92 10^6/uL (4.00-5.40)
[2019-08-19 23:50] LABS: ALBUMIN 4.2 GM/DL (3.2-5.2); BILIRUBIN,DIRECT 0.2 MG/DL (0.0-0.2); BILIRUBIN,TOTAL 0.6 MG/DL (0.2-1.0); TOTAL PROTEIN 7.4 GM/DL (6.4-8.2)
[2019-08-20] MEDS ORDERED: MORPHINE 4 MG/ML 1ML VIAL/SYRINGE (J2270) IV ONE (00:15)
[2019-08-20] MEDS ORDERED: ISOVUE-370 76% 100ML VIAL (Q9967) As Ordered ONE (00:45)
--- NOTE | 2019-08-20 01:17 | REPVR ---
PROCEDURE INFORMATION: Exam: CT Abdomen And Pelvis With Contrast Exam date and time: 08/20/2019 12:52 AM Age: 28 years old Clinical indication: Abdominal pain; Periumbilical; Additional info: Periumbilic pain TECHNIQUE: Imaging protocol: Computed tomography of the abdomen and pelvis with intravenous contrast. Axial, coronal and sagittal reformatted images were created and reviewed. Radiation optimization: All CT scans at this facility use at least one of these dose optimization techniques: automated exposure control; mA and/or kV adjustment per patient size (includes targeted exams where dose is matched to clinical indication); or iterative reconstruction. Contrast material: ISOVUE 370; Contrast volume: 100 ml; Contrast route: IV; COMPARISON: CT ABD/PEL W/IV CONTRAST ONLY 07/15/2018 10:24 AM FINDINGS: Liver: Mild hepatomegaly. Gallbladder and bile ducts: No radiodense gallstones. No biliary ductal dilatation. Pancreas: Unremarkable. Spleen: Unremarkable. Adrenals: Unremarkable. Kidneys and ureters: No mass. No radiodense calculi. No hydronephrosis. Stomach and bowel: No bowel wall thickening. No obstruction. No pneumatosis. Appendix: Normal. Intraperitoneal space: No free fluid. No organized fluid collection. No free air. Vasculature: Unremarkable. No aneurysm. Lymph nodes: No pathologically enlarged lymph nodes. Bladder: Unremarkable. Reproductive: Probable involuting right ovarian corpus luteal cyst versus dominant follicle. Evidence of prior tubal ligation. Bones/joints: No acute osseous abnormality. Soft tissues: Unremarkable. Other findings: Minimal dependent atelectatic change. IMPRESSION: 1. No CT evidence of acute intra-abdominal or pelvic pathology. 2. Additional findings, as above. Electronically signed by: Campbell Lópze On 08/20/2019 01:17:41 AM
[2019-08-20 02:09] VITALS: BP 127/70
== END 2019-08-20 02:11 | disposition home or self-care (01) ==
LOC: M ED 22:09
DX: N83.201 Unspecified ovarian cyst, right side (principal); K21.9 Gastro-esophageal reflux disease without esophagitis; F41.9 Anxiety disorder, unspecified; F17.200 Nicotine dependence, unspecified, uncomplicated; Z98.51 Tubal ligation status; Z91.040 Latex allergy status
CPT/HCPCS: 36415; 74177; 80047; 80076; 81001; 83690; 84702; 85025; 96361; 96374; 96375; 99284; J1885; J2270; J2405; Q9967

== ENCOUNTER 2019-09-09 20:06 | Emergency (ER) | payer MEDICAID, OTHER ==
[~2019-09-09] VITALS: Ht 162.6 cm; Wt 80.0 kg
[~2019-09-09 20:06] MED LIST changes: +AMOX875T PO
[2019-09-09 21:22] LABS: INFLUENZA A AMPLIFICATION NEGATIVE (NEGATIVE); INFLUENZA B AMPLIFICATION NEGATIVE (NEGATIVE)
[2019-09-09] MEDS ORDERED: ALBUTEROL SULFATE 2.5 MG/0.5 ML INH NEB SOLN NEB ONE (22:00)
[2019-09-09] MEDS ORDERED: BENZONATATE 100 MG CAP PO ONE (22:00)
[2019-09-09] MEDS ORDERED: NAPROXEN 250 MG TAB PO ONE (22:00)
[2019-09-09 22:10] LABS: BASO # 0.1 10^3/uL (0.0-0.2); BASO % 0.5 % (0.0-1.0); EOS # 0.2 10^3/uL (0.0-0.5); EOS % 1.7 % (0.0-3.0); HEMATOCRIT 41.3 % (36.0-47.0); HEMOGLOBIN 13.8 g/dl (12.0-15.5); LYMPH # 2.9 10^3/uL (1.5-5.0); LYMPH % 26.9 % (24.0-44.0); MEAN CORPUSCULAR HEMOGLOBIN 29.8 pg (27.0-33.0); MEAN CORPUSCULAR HGB CONC 33.4 g/dl (32.0-36.5); MEAN CORPUSCULAR VOLUME 89.2 fl (80.0-96.0); MONO # 0.6 10^3/uL (0.0-0.8); MONO % 5.6 % (0.0-5.0); NEUTROPHILS # 6.9 10^3/uL (1.5-8.5); NEUTROPHILS % 64.8 % (36.0-66.0); PLATELET COUNT, AUTOMATED 366 10^3/uL (150-450); RED BLOOD COUNT 4.63 10^6/uL (4.00-5.40); WHITE BLOOD COUNT 10.6 10^3/uL (4.0-10.0)
[2019-09-09] MEDS ORDERED: PROAAER10 INH (22:42)
[2019-09-09] MEDS ORDERED: TESS100C PO (22:42)
[2019-09-09] MEDS ORDERED: NAPR-837 PO (22:42)
[2019-09-09] MEDS ORDERED: ALBUTEROL 90 MCG/ACT 8GM HFA INHALER INH ONE (22:45)
[2019-09-09 23:00] VITALS: BP 125/71
--- NOTE | 2019-09-10 09:42 | REP ---
Clinical: shortness of breath . Comparison: 06/16/2019 . Technique: PA and lateral. Findings: The mediastinum and cardiac silhouette are normal. The lung au are clear and without acute consolidation, effusion, or pneumothorax. The skeletal structures are intact and normal. Impression: 1. No acute cardiopulmonary process. Electronically Signed by Robert Berumen MD 09/10/2019 09:34 A
== END 2019-09-09 23:01 | disposition home or self-care (01) ==
LOC: M ED 20:06
DX: J06.9 Acute upper respiratory infection, unspecified (principal); B34.9 Viral infection, unspecified; K21.9 Gastro-esophageal reflux disease without esophagitis; Z91.018 Allergy to other foods; F17.210 Nicotine dependence, cigarettes, uncomplicated

== ENCOUNTER 2019-09-27 10:53 | Emergency (ER) | payer MEDICAID, OTHER ==
[~2019-09-27] VITALS: Ht 162.6 cm; Wt 82.4 kg
[~2019-09-27 10:53] MED LIST changes: +PROAAER10 INH; +TESS100C PO
[2019-09-27] MEDS ORDERED: VENTAER INH (13:14)
[2019-09-27] MEDS ORDERED: FLON1SPR NARES (13:14)
[2019-09-27] MEDS ORDERED: BENZ200C70 PO (13:14)
[2019-09-27 13:19] VITALS: BP 110/66
== END 2019-09-27 13:28 | disposition home or self-care (01) ==
LOC: M ED 10:53
DX: J31.0 Chronic rhinitis (principal); J98.01 Acute bronchospasm; F41.9 Anxiety disorder, unspecified; K21.9 Gastro-esophageal reflux disease without esophagitis; R56.9 Unspecified convulsions; Z91.040 Latex allergy status; F17.210 Nicotine dependence, cigarettes, uncomplicated

== ENCOUNTER 2019-10-19 09:30 | Emergency (ER) | payer OTHER ==
[~2019-10-19] VITALS: Ht 162.6 cm; Wt 84.0 kg
[~2019-10-19 09:30] MED LIST changes: +FLON1SPR NARES; +VENTAER INH
[2019-10-19] MEDS ORDERED: PRED10TA2 (09:38)
[2019-10-19] MEDS ORDERED: methylPREDNISolone INJ 125 MG/2 ML VIAL (J2930) IV ONE (10:15)
[2019-10-19] MEDS ORDERED: ALBUTEROL 90 MCG/ACT 8GM HFA INHALER INH ONE ×2 (10:15→12:00)
--- NOTE | 2019-10-19 10:37 | REP ---
Portable chest x-ray: Single view. History: Dyspnea and cough. Comparison chest x-ray: September 09, 2019. Findings: The lungs are symmetrically aerated and clear. The pleural angles are sharp. Cardiomediastinal silhouette is unremarkable. No bony abnormalities seen. Impression: Negative portable chest x-ray. Electronically Signed by Nick Rangel MD 10/19/2019 10:27 A
[2019-10-19 10:40] LABS: BASO # 0.1 10^3/uL (0.0-0.2); BASO % 0.4 % (0.0-1.0); EOS % 0.1 % (0.0-3.0); HEMATOCRIT 45.6 % (36.0-47.0); HEMOGLOBIN 15.1 g/dl (12.0-15.5); LYMPH # 2.3 10^3/uL (1.5-5.0); LYMPH % 12.9 % (24.0-44.0); MEAN CORPUSCULAR HEMOGLOBIN 29.4 pg (27.0-33.0); MEAN CORPUSCULAR HGB CONC 33.1 g/dl (32.0-36.5); MEAN CORPUSCULAR VOLUME 88.7 fl (80.0-96.0); MONO # 0.8 10^3/uL (0.0-0.8); MONO % 4.3 % (0.0-5.0); NEUTROPHILS # 14.2 10^3/uL (1.5-8.5); NEUTROPHILS % 79.7 % (36.0-66.0); PLATELET COUNT, AUTOMATED 420 10^3/uL (150-450); RED BLOOD COUNT 5.14 10^6/uL (4.00-5.40); WHITE BLOOD COUNT 17.8 10^3/uL (4.0-10.0)
[2019-10-19 11:06] LABS: ALBUMIN 3.8 GM/DL (3.2-5.2); ALT/SGPT 60 U/L (12-78); BILIRUBIN,DIRECT < 0.1 MG/DL (0.0-0.2); BILIRUBIN,TOTAL 0.4 MG/DL (0.2-1.0); BLOOD UREA NITROGEN 13 MG/DL (7-18); CARBON DIOXIDE LEVEL 28 MEQ/L (21-32); CHLORIDE LEVEL 105 MEQ/L (98-107); CK-MB VALUE MASS < 1.0 NG/ML (<3.6); CPK CREATINE PHOSPHOKINASE 31 U/L (26-192); CREATININE FOR GFR 0.64 MG/DL (0.55-1.30); GLOMERULAR FILTRATION RATE > 60.0 (>60); GLUCOSE, FASTING 99 MG/DL (70-100); MB/CK RELATIVE INDEX 3.23 (< OR =4); POTASSIUM SERUM 4.3 MEQ/L (3.5-5.1); SODIUM LEVEL 138 MEQ/L (136-145); TOTAL PROTEIN 7.2 GM/DL (6.4-8.2); TROPONIN I < 0.02 NG/ML (< 0.10)
[2019-10-19] MEDS ORDERED: AZIT-12 PO (12:52)
[2019-10-19] MEDS ORDERED: SYMB16INH INH (12:52)
[2019-10-19 13:03] VITALS: BP 133/66
== END 2019-10-19 13:06 | disposition home or self-care (01) ==
LOC: M ED 09:30
DX: J45.31 Mild persistent asthma with (acute) exacerbation (principal); J20.9 Acute bronchitis, unspecified; I10 Essential (primary) hypertension; K21.9 Gastro-esophageal reflux disease without esophagitis; F17.200 Nicotine dependence, unspecified, uncomplicated; Z79.51 Long term (current) use of inhaled steroids; Z79.52 Long term (current) use of systemic steroids; Z79.899 Other long term (current) drug therapy; Z91.040 Latex allergy status
CPT/HCPCS: 36415; 71045; 80048; 80076; 82550; 82553; 85025; 85379; 87486; 87581; 87633; 87798; 94640; 96374; 99284; J2930

== ENCOUNTER 2020-02-06 12:44 | Day surgery (SDC) | payer OTHER ==
[~2020-02-06] VITALS: Ht 162.6 cm; Wt 88.5 kg
[~2020-02-06 12:44] MED LIST changes: +AZIT-12 PO; +NS 1,000 ML IV ONE; +OMEP-221 PO; +PRED10TA2; +SERT50TA29 PO; +SYMB16INH INH
[2020-02-06] MEDS ORDERED: LIDOCAINE 2% 100MG/5ML SDV (FOR ANES.) As Ordered ONE (13:39)
[2020-02-06] MEDS ORDERED: propofoL 200 MG/20 ML VIAL As Ordered ONE (13:39)
[2020-02-06] MEDS ORDERED: fentaNYL 100 MCG/2 ML INJECTION (J3010) As Ordered ONE (13:39)
[2020-02-06 14:20] VITALS: BP 128/78
--- NOTE | 2020-02-06 14:25 | ROOR ---
Patient Name: Myranda Ruiz Procedure Date: 02/06/2020 1:35 PM Date of : 1990 Age: 29 Room: [facility] Gender: Female Note Status: Finalized Procedure: Upper GI endoscopy Indications: Heartburn Providers: Matthieu Arroyo MD Referring MD: Ana ERWIN NP Requesting Provider: Medicines: Monitored Anesthesia Care Complications: No immediate complications. Procedure: Pre-Anesthesia Assessment: - Prior to the procedure, a History and Physical was performed, and patient medications and allergies were reviewed. The patient is competent. The risks and benefits of the procedure and the sedation options and risks were discussed with the patient. All questions were answered and informed consent was obtained. Patient identification and proposed procedure were verified by the physician, the nurse and the anesthesiologist in the procedure room. Mental Status Examination: alert and oriented. Airway Examination: normal oropharyngeal airway and neck mobility. Respiratory Examination: clear to auscultation. CV Examination: normal. Prophylactic Antibiotics: The patient does not require prophylactic antibiotics. Prior Anticoagulants: The patient has taken no previous anticoagulant or antiplatelet agents. After reviewing the risks and benefits, the patient was deemed in satisfactory condition to undergo the procedure. The anesthesia plan was to use monitored anesthesia care (MAC). Immediately prior to administration of medications, the patient was re-assessed for adequacy to receive sedatives. The heart rate, respiratory rate, oxygen saturations, blood pressure, adequacy of pulmonary ventilation, and response to care were monitored throughout the procedure. The physical status of the patient was re-assessed after the procedure. The Endoscope was introduced through the mouth, and advanced to the second part of duodenum. The upper GI endoscopy was accomplished without difficulty. The patient tolerated the procedure well. Findings: Patchy, white plaques were found in the lower third of the esophagus. The Z-line was regular and was found 36 cm from the incisors. Scattered mild inflammation characterized by erythema and granularity was found in the gastric antrum. Biopsies were taken with a cold forceps for Helicobacter pylori testing. Verification of patient identification for the specimen was done by the physician and nurse using the patient's name, date and medical record number. Estimated blood loss was minimal. The ampulla, duodenal bulb and second portion of the duodenum were normal. Impression: - Esophageal plaques were found, suspicious for candidiasis. - Z-line regular, 36 cm from the incisors. - Gastritis. Biopsied. - Normal ampulla, duodenal bulb and second portion of the duodenum. Recommendation: - Patient has a contact number available for emergencies. The signs and symptoms of potential delayed complications were discussed with the patient. Return to normal activities tomorrow. Written discharge instructions were provided to the patient. - High fiber diet. - Continue present medications. - Gargle the throat with atleast 100 ml of water and swallow after each use of inhaled medications. - Follow an antireflux regimen. - Await pathology results. - Telephone GI clinic for pathology results in 2 weeks. - Return to primary care physician. Matthieu Arroyo MD Matthieu Arroyo MD 02/06/2020 2:24:15 PM Electronically signed by Matthieu Arroyo MD Number of Addenda: 0 Note Initiated On: 02/06/2020 1:35 PM Estimated Blood Loss: Estimated blood loss was minimal.
== END 2020-02-06 14:36 | disposition home or self-care (01) ==
LOC: M OPP 12:44
PROVIDERS: ATTEND Internal Medicine Gastroenterology
DX: K29.70 Gastritis, unspecified, without bleeding (principal); K22.9 Disease of esophagus, unspecified; R12 Heartburn; K21.9 Gastro-esophageal reflux disease without esophagitis; F17.210 Nicotine dependence, cigarettes, uncomplicated; Z79.899 Other long term (current) drug therapy; Z91.040 Latex allergy status; Z11.59 Encounter for screening for other viral diseases
CPT/HCPCS: 43239; 88305; J3010; U0002

== ENCOUNTER → 2020-05-16 | Outpatient (REF) | payer OTHER ==
[~2020-05-16] MED LIST changes: -NS 1,000 ML IV ONE
== END ==
LOC: M LAB REF 16:10
PROVIDERS: ATTEND Physician Assistant
DX: B80 Enterobiasis (principal)

== ENCOUNTER → 2020-08-21 | Outpatient (REF) | payer OTHER ==
[2020-08-21 16:39] LABS: BASO # 0.1 10^3/uL (0.0-0.2); BASO % 0.5 % (0.0-1.0); EOS # 0.3 10^3/uL (0.0-0.5); EOS % 2.5 % (0.0-3.0); HEMATOCRIT 45.5 % (36.0-47.0); HEMOGLOBIN 14.7 g/dl (12.0-15.5); LYMPH # 2.3 10^3/uL (1.5-5.0); LYMPH % 17.2 % (24.0-44.0); MEAN CORPUSCULAR HEMOGLOBIN 28.4 pg (27.0-33.0); MEAN CORPUSCULAR HGB CONC 32.3 g/dl (32.0-36.5); MEAN CORPUSCULAR VOLUME 87.8 fl (80.0-96.0); MONO # 0.6 10^3/uL (0.0-0.8); MONO % 4.6 % (0.0-5.0); NEUTROPHILS # 9.8 10^3/uL (1.5-8.5); NEUTROPHILS % 74.2 % (36.0-66.0); PLATELET COUNT, AUTOMATED 436 10^3/uL (150-450); RED BLOOD COUNT 5.18 10^6/uL (4.00-5.40); WHITE BLOOD COUNT 13.2 10^3/uL (4.0-10.0)
[2020-08-21 17:17] LABS: ALBUMIN 3.6 GM/DL (3.2-5.2); ALT/SGPT 41 U/L (12-78); BILIRUBIN,TOTAL 0.4 MG/DL (0.2-1.0); BLOOD UREA NITROGEN 11 MG/DL (7-18); CALCIUM LEVEL 10.1 MG/DL (8.5-10.1); CARBON DIOXIDE LEVEL 30 MEQ/L (21-32); CHLORIDE LEVEL 103 MEQ/L (98-107); CREATININE FOR GFR 0.74 MG/DL (0.55-1.30); GLOMERULAR FILTRATION RATE > 60.0 (>60); GLUCOSE, FASTING 89 MG/DL (70-100); POTASSIUM SERUM 4.3 MEQ/L (3.5-5.1); SODIUM LEVEL 139 MEQ/L (136-145); TOTAL 25(OH) VITAMIN D 16.7 NG/ML (30.0-100.0); TOTAL PROTEIN 6.9 GM/DL (6.4-8.2)
== END ==
LOC: M LAB REF 16:18
PROVIDERS: ATTEND Physician Assistant
DX: R94.6 Abnormal results of thyroid function studies (principal)

== ENCOUNTER 2021-01-16 02:05 | Emergency (ER) | payer OTHER ==
[~2021-01-16] VITALS: Ht 162.6 cm; Wt 104.4 kg
[2021-01-16 02:08] VITALS: BP 132/80
[2021-01-16 02:52] LABS: BASO # 0.1 10^3/uL (0.0-0.2); BASO % 0.5 % (0.0-1.0); EOS # 0.3 10^3/uL (0.0-0.5); EOS % 1.8 % (0.0-3.0); HEMATOCRIT 42.7 % (36.0-47.0); LYMPH # 3.2 10^3/uL (1.5-5.0); MEAN CORPUSCULAR HEMOGLOBIN 27.9 pg (27.0-33.0); MEAN CORPUSCULAR HGB CONC 32.8 g/dl (32.0-36.5); MEAN CORPUSCULAR VOLUME 85.1 fl (80.0-96.0); MONO # 0.7 10^3/uL (0.0-0.8); MONO % 5.2 % (2.0-8.0); NEUTROPHILS # 9.4 10^3/uL (1.5-8.5); NEUTROPHILS % 68.2 % (36.0-66.0); PLATELET COUNT, AUTOMATED 402 10^3/uL (150-450); RED BLOOD COUNT 5.02 10^6/uL (4.00-5.40); WHITE BLOOD COUNT 13.8 10^3/uL (4.0-10.0)
[2021-01-16 03:17] LABS: HCG, SERUM QUALITATIVE NEGATIVE (NEGATIVE)
[2021-01-16 03:22] LABS: BLOOD UREA NITROGEN 13 MG/DL (7-18); CALCIUM LEVEL 9.6 MG/DL (8.5-10.1); CARBON DIOXIDE LEVEL 25 MEQ/L (21-32); CHLORIDE LEVEL 107 MEQ/L (98-107); CK-MB VALUE MASS 1.1 NG/ML (<3.6); CPK CREATINE PHOSPHOKINASE 105 U/L (26-192); GLOMERULAR FILTRATION RATE > 60.0 (>60); GLUCOSE, FASTING 120 MG/DL (70-100); MB/CK RELATIVE INDEX 1.05 (< OR =4); POTASSIUM SERUM 3.5 MEQ/L (3.5-5.1); SODIUM LEVEL 140 MEQ/L (136-145); TROPONIN I < 0.02 NG/ML (< 0.10)
--- NOTE | 2021-01-16 05:14 | REPVR ---
PROCEDURE INFORMATION: Exam: XR Chest Exam date and time: 01/16/2021 2:36 AM Age: 30 years old Clinical indication: Other: Chest pain TECHNIQUE: Imaging protocol: XR of the chest. Views: 2 views. COMPARISON: 1. GA PORTABLE CHEST X-RAY 10/19/2019 10:11 AM 2. CR Chest, 2 view PA, Lat 09/09/2019 8:40 PM 3. CR Chest, 2 view PA, Lat 06/16/2019 9:58 AM FINDINGS: Lungs: Unremarkable. No consolidation. Pleural spaces: Unremarkable. No pleural effusion. No pneumothorax. Heart/Mediastinum: Unremarkable. No cardiomegaly. Bones/joints: Unremarkable. IMPRESSION: No acute findings. Electronically signed by: Mayte Barrientos On 01/16/2021 05:13:51 AM
--- NOTE | 2021-01-16 20:46 | ECGEPIP ---
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
== END 2021-01-16 04:07 | disposition left against medical advice (07) ==
LOC: M ED 02:05
DX: Z53.29 Procedure and treatment not carried out because of patient's decision for other reasons (principal)

== ENCOUNTER 2021-01-16 15:44 | Emergency (ER) | payer OTHER ==
[~2021-01-16] VITALS: Ht 162.6 cm; Wt 102.6 kg
[2021-01-16 19:47] VITALS: BP 127/72
== END 2021-01-16 19:54 | disposition home or self-care (01) ==
LOC: M ED 15:44
DX: M94.0 Chondrocostal junction syndrome [Tietze] (principal); J45.909 Unspecified asthma, uncomplicated; K21.9 Gastro-esophageal reflux disease without esophagitis; Z91.040 Latex allergy status; Z79.899 Other long term (current) drug therapy; F17.210 Nicotine dependence, cigarettes, uncomplicated

== ENCOUNTER → 2021-04-08 | Outpatient (CLI) | payer OTHER ==
[~2021-04-08] MED LIST changes: -CITA10TA5; +CITA10TA7; -OMEP-221 PO; +OMEP40CA5 PO
== END ==
LOC: M RAD 16:24
PROVIDERS: ATTEND Physician Assistant Medical
DX: S93.402A Sprain of unspecified ligament of left ankle, initial encounter (principal); Y92.9 Unspecified place or not applicable; Y93.9 Activity, unspecified; Y99.9 Unspecified external cause status

== ENCOUNTER → 2021-06-11 | Outpatient (REF) | payer OTHER ==
[~2021-06-11] MED LIST changes: +CITA10TA5; -CITA10TA7; +OMEP-221 PO; -OMEP40CA5 PO
== END ==
LOC: M LAB REF 12:19
PROVIDERS: ATTEND Physician Assistant
DX: R05.9 Cough, unspecified (principal)

== ENCOUNTER 2022-03-13 12:35 | Emergency (ER) | payer OTHER ==
[~2022-03-13] VITALS: Ht 154.9 cm; Wt 88.2 kg
[~2022-03-13 12:35] MED LIST changes: -CITA10TA5; +CITA10TA7; -OMEP-221 PO; +OMEP40CA5 PO
[2022-03-13 12:36] VITALS: BP 134/76
== END 2022-03-13 18:47 | disposition left against medical advice (07) ==
LOC: M ED 12:35
DX: Z53.29 Procedure and treatment not carried out because of patient's decision for other reasons (principal)

== ENCOUNTER 2022-03-17 19:47 | Emergency (ER) | payer OTHER ==
[~2022-03-17] VITALS: Ht 154.9 cm; Wt 89.5 kg
[2022-03-17 19:49] VITALS: BP 123/75
== END 2022-03-17 23:03 | disposition left against medical advice (07) ==
LOC: M ED 19:47
DX: Z53.29 Procedure and treatment not carried out because of patient's decision for other reasons (principal)

== ENCOUNTER 2022-07-18 13:38 | Emergency (ER) | payer OTHER ==
[~2022-07-18] VITALS: Ht 154.9 cm; Wt 81.2 kg
[2022-07-18] MEDS ORDERED: FLUT1BLS5 (13:47)
[2022-07-18 20:08] LABS: BASO % 0.3 % (0.0-1.0); EOS % 0.1 % (0.0-3.0); HEMATOCRIT 44.1 % (36.0-47.0); HEMOGLOBIN 14.8 g/dl (12.0-15.5); LYMPH # 2.1 10^3/uL (1.5-5.0); LYMPH % 15.8 % (24.0-44.0); MEAN CORPUSCULAR HEMOGLOBIN 29.2 pg (27.0-33.0); MEAN CORPUSCULAR HGB CONC 33.6 g/dl (32.0-36.5); MEAN CORPUSCULAR VOLUME 87.2 fl (80.0-96.0); MONO # 0.5 10^3/uL (0.0-0.8); MONO % 3.7 % (2.0-8.0); NEUTROPHILS # 10.6 10^3/uL (1.5-8.5); NEUTROPHILS % 79.5 % (36.0-66.0); PLATELET COUNT, AUTOMATED 452 10^3/uL (150-450); RED BLOOD COUNT 5.06 10^6/uL (4.00-5.40); WHITE BLOOD COUNT 13.3 10^3/uL (4.0-10.0)
[2022-07-18 20:30] LABS: CPK CREATINE PHOSPHOKINASE 36 U/L (34-145)
[2022-07-18 20:31] LABS: ALBUMIN 3.9 G/DL (3.2-5.2); ALKALINE PHOSPHATASE 87 U/L (46-116); ALT/SGPT 18 U/L (7.0-40); AST/SGOT 14 U/L (<34); BILIRUBIN,DIRECT 0.2 MG/DL (<0.4); BILIRUBIN,TOTAL 0.6 MG/DL (0.3-1.2); BLOOD UREA NITROGEN 9 MG/DL (9-23); CALCIUM LEVEL 10.2 MG/DL (8.5-10.1); CARBON DIOXIDE LEVEL 24 MMOL/L (20-31); CHLORIDE LEVEL 107 MMOL/L (98-107); CK-MB VALUE MASS < 1.0 NG/ML (<3.6); CREATININE FOR GFR 0.59 MG/DL (0.55-1.30); GLOMERULAR FILTRATION RATE > 60.0 (>60); GLUCOSE, FASTING 87 MG/DL (60-100); MB/CK RELATIVE INDEX 2.77 (< OR =4); POTASSIUM SERUM 3.7 MMOL/L (3.5-5.1); SODIUM LEVEL 140 MMOL/L (136-145); TOTAL PROTEIN 7.3 G/DL (5.7-8.2)
[2022-07-18 20:43] LABS: RSV AMPLIFICATION NEGATIVE (NEGATIVE)
[2022-07-18] MEDS ORDERED: KETOROLAC 60MG 2ML VIAL IM ONE (23:00)
[2022-07-18] MEDS ORDERED: ISOVUE-370 76% 100ML VIAL As Ordered ONE (23:59)
[2022-07-19] MEDS ORDERED: GUAI100L6 PO (00:45)
[2022-07-19] MEDS ORDERED: PRED20TA PO (00:45)
[2022-07-19] MEDS ORDERED: predniSONE 20 MG TAB PO ONE (00:50)
[2022-07-19 00:53] VITALS: BP 146/85
[2022-07-20] MEDS ORDERED: IBUP80TA PO (16:36)
== END 2022-07-19 01:13 | disposition home or self-care (01) ==
LOC: M ED 13:38
DX: J20.9 Acute bronchitis, unspecified (principal); M94.0 Chondrocostal junction syndrome [Tietze]; K21.9 Gastro-esophageal reflux disease without esophagitis; J45.909 Unspecified asthma, uncomplicated; F32.A Depression, unspecified; Z91.040 Latex allergy status; F17.200 Nicotine dependence, unspecified, uncomplicated; Z79.51 Long term (current) use of inhaled steroids; Z79.899 Other long term (current) drug therapy
CPT/HCPCS: 36415; 71046; 71275; 80048; 80076; 82550; 82553; 85025; 85379; 87631; 93005; 96372; 99284; J1885; J7512

== ENCOUNTER 2022-07-20 12:06 | Emergency (ER) | payer OTHER ==
[~2022-07-20] VITALS: Ht 154.9 cm; Wt 84.1 kg
[~2022-07-20 12:06] MED LIST changes: +FLUT1BLS5; +GUAI100L6 PO
[2022-07-20 13:37] LABS: HEMATOCRIT 45.5 % (36.0-47.0); HEMOGLOBIN 15.3 g/dl (12.0-15.5); MEAN CORPUSCULAR HEMOGLOBIN 29.5 pg (27.0-33.0); MEAN CORPUSCULAR HGB CONC 33.6 g/dl (32.0-36.5); MEAN CORPUSCULAR VOLUME 87.7 fl (80.0-96.0); PLATELET COUNT, AUTOMATED 444 10^3/uL (150-450); RED BLOOD COUNT 5.19 10^6/uL (4.00-5.40)
[2022-07-20 14:11] LABS: BLOOD UREA NITROGEN 12 MG/DL (9-23); CARBON DIOXIDE LEVEL 26 MMOL/L (20-31); CHLORIDE LEVEL 106 MMOL/L (98-107); CREATININE FOR GFR 0.69 MG/DL (0.55-1.30); GLOMERULAR FILTRATION RATE > 60.0 (>60); GLUCOSE, FASTING 102 MG/DL (60-100); POTASSIUM SERUM 3.6 MMOL/L (3.5-5.1); SODIUM LEVEL 140 MMOL/L (136-145)
[2022-07-20 15:01] VITALS: BP 136/83
[2022-07-20] MEDS ORDERED: IBUPROFEN 800 MG TAB PO ONE (16:10)
[2022-07-20] MEDS ORDERED: IBUP80TA PO (16:36)
== END 2022-07-20 22:02 | disposition home or self-care (01) ==
LOC: M ED 12:06 → EDBD 12:06 → M ED 22:02
DX: R55 Syncope and collapse (principal); Z86.69 Personal history of other diseases of the nervous system and sense organs; Z87.820 Personal history of traumatic brain injury; J45.909 Unspecified asthma, uncomplicated; F17.200 Nicotine dependence, unspecified, uncomplicated; Z79.899 Other long term (current) drug therapy; Z91.040 Latex allergy status

== ENCOUNTER 2022-07-29 11:54 | Emergency (ER) | payer OTHER ==
[~2022-07-29] VITALS: Ht 154.9 cm; Wt 81.2 kg
[2022-07-29 19:08] LABS: BASO % 0.3 % (0.0-1.0); EOS # 0.1 10^3/uL (0.0-0.5); EOS % 0.4 % (0.0-3.0); HEMATOCRIT 39.5 % (36.0-47.0); HEMOGLOBIN 13.7 g/dl (12.0-15.5); LYMPH # 2.9 10^3/uL (1.5-5.0); LYMPH % 22.7 % (24.0-44.0); MEAN CORPUSCULAR HEMOGLOBIN 29.9 pg (27.0-33.0); MEAN CORPUSCULAR HGB CONC 34.7 g/dl (32.0-36.5); MEAN CORPUSCULAR VOLUME 86.2 fl (80.0-96.0); MONO # 0.8 10^3/uL (0.0-0.8); MONO % 5.9 % (2.0-8.0); NEUTROPHILS % 69.6 % (36.0-66.0); PLATELET COUNT, AUTOMATED 322 10^3/uL (150-450); RED BLOOD COUNT 4.58 10^6/uL (4.00-5.40); WHITE BLOOD COUNT 12.9 10^3/uL (4.0-10.0)
[2022-07-29 19:20] LABS: BILIRUBIN,DIRECT 0.3 MG/DL (<0.4); CPK CREATINE PHOSPHOKINASE 54 U/L (34-145); INR 0.92; PROTHROMBIN TIME 12.6 SECONDS (12.5-14.5)
[2022-07-29] MEDS ORDERED: NS 1,000 ML IV ONE (19:20)
[2022-07-29] MEDS ORDERED: AUGMENTIN 875 MG TAB PO ONE (19:20)
[2022-07-29 19:23] LABS: ALBUMIN 3.6 G/DL (3.2-5.2); ALKALINE PHOSPHATASE 60 U/L (46-116); ALT/SGPT 37 U/L (7.0-40); AST/SGOT 17 U/L (<34); BILIRUBIN,TOTAL 0.8 MG/DL (0.3-1.2); CK-MB VALUE MASS < 1.0 NG/ML (<3.6); MB/CK RELATIVE INDEX 1.85 (< OR =4); THYROID STIMULATING HORMONE 3.096 uIU/ML (0.55-4.78); THYROXINE (T4) 8.5 UG/DL (4.5-10.9); TOTAL PROTEIN 6.4 G/DL (5.7-8.2)
[2022-07-29 19:34] LABS: MONO REFLEX EBV COMP NEGATIVE (NEGATIVE)
[2022-07-29 19:36] LABS: D-DIMER QUANT < 270 ng/ml (<500)
[2022-07-29] MEDS ORDERED: AMOX875T2 PO (20:11)
[2022-07-29 20:43] VITALS: BP 150/70
[2022-07-31 14:08] LABS: EBV VIRAL CAPSID AG IgG 76.9 U/mL (0.0-17.9); EBV VIRAL CAPSID AG IgM <36.0 U/mL (0.0-35.9)
== END 2022-07-29 20:44 | disposition home or self-care (01) ==
LOC: M ED 18:00
DX: J02.0 Streptococcal pharyngitis (principal); R06.02 Shortness of breath; Z87.891 Personal history of nicotine dependence; Z79.899 Other long term (current) drug therapy; Z91.040 Latex allergy status
CPT/HCPCS: 71045; 80047; 80076; 82550; 82553; 84436; 84443; 84702; 85025; 85379; 85610; 86308; 86664; 86665; 87486; 87581; 87633; 87798; 87880; 93005; 96361; 96374; 99284; J1100

== ENCOUNTER 2022-10-09 09:27 | Emergency (ER) | payer OTHER ==
[~2022-10-09] VITALS: Ht 160 cm; Wt 74.8 kg
[~2022-10-09 09:27] MED LIST changes: +AMOX875T2 PO
[2022-10-09] MEDS ORDERED: KETOROLAC 30 MG/ML 1ML VIAL IV ONE (11:30)
[2022-10-09] MEDS ORDERED: METOCLOPRAMIDE INJ 10MG/2ML VIAL IV ONE (11:30)
[2022-10-09] MEDS ORDERED: NS 1,000 ML IV ONE (11:30)
[2022-10-09 12:16] LABS: BASO % 0.3 % (0.0-1.0); EOS % 0.2 % (0.0-3.0); HEMATOCRIT 40.9 % (36.0-47.0); HEMOGLOBIN 13.9 g/dl (12.0-15.5); LYMPH # 1.7 10^3/uL (1.5-5.0); LYMPH % 16.7 % (24.0-44.0); MEAN CORPUSCULAR HEMOGLOBIN 29.8 pg (27.0-33.0); MEAN CORPUSCULAR VOLUME 87.8 fl (80.0-96.0); MONO # 0.4 10^3/uL (0.0-0.8); MONO % 3.6 % (2.0-8.0); NEUTROPHILS # 7.9 10^3/uL (1.5-8.5); NEUTROPHILS % 78.9 % (36.0-66.0); PLATELET COUNT, AUTOMATED 359 10^3/uL (150-450); RED BLOOD COUNT 4.66 10^6/uL (4.00-5.40)
[2022-10-09 12:37] LABS: BLOOD UREA NITROGEN 11 MG/DL (9-23); CARBON DIOXIDE LEVEL 28 MMOL/L (20-31); CHLORIDE LEVEL 106 MMOL/L (98-107); CREATININE FOR GFR 0.53 MG/DL (0.55-1.30); GLOMERULAR FILTRATION RATE > 60.0 (>60); GLUCOSE, FASTING 98 MG/DL (60-100); MAGNESIUM LEVEL 2.3 MG/DL (1.8-2.4); POTASSIUM SERUM 3.9 MMOL/L (3.5-5.1); SODIUM LEVEL 137 MMOL/L (136-145)
[2022-10-09 12:40] LABS: FREE T4 1.04 NG/DL (0.89-1.76); THYROID STIMULATING HORMONE 1.699 uIU/ML (0.55-4.78)
[2022-10-09 12:45] LABS: HCG, SERUM QUALITATIVE NEGATIVE (NEGATIVE)
[2022-10-09] MEDS ORDERED: diphenhydrAMINE 50MG/ML VIAL IV ONE (14:00)
[2022-10-09] MEDS ORDERED: ACETAMINOPHEN 500 MG TAB PO ONE (14:00)
[2022-10-09] MEDS ORDERED: TOPIRAMATE (TopAMAX) 25 MG TAB PO ONE (14:15)
[2022-10-09] MEDS ORDERED: ISOVUE-370 76% 100ML VIAL As Ordered ONE (14:21)
[2022-10-09] MEDS ORDERED: TOPA50TA8 PO (15:31)
[2022-10-09 15:38] VITALS: BP 132/81
== END 2022-10-09 15:52 | disposition home or self-care (01) ==
LOC: M ED 09:27
DX: G43.909 Migraine, unspecified, not intractable, without status migrainosus (principal); J45.909 Unspecified asthma, uncomplicated; K21.9 Gastro-esophageal reflux disease without esophagitis; R56.9 Unspecified convulsions; Z79.51 Long term (current) use of inhaled steroids; Z79.899 Other long term (current) drug therapy
CPT/HCPCS: 70450; 70496; 70498; 72125; 80048; 83735; 84439; 84443; 84703; 85025; 96374; 96375; 99284; J1100; J1200; J1885; J2765; Q9967

== ENCOUNTER → 2022-11-06 | Outpatient (REF) | payer OTHER ==
[~2022-11-06] MED LIST changes: +TOPA50TA8 PO
== END ==
LOC: M LAB REF 12:06
PROVIDERS: ATTEND Physician Assistant
DX: B34.9 Viral infection, unspecified (principal)

== ENCOUNTER 2022-11-19 20:06 | Emergency (ER) | payer OTHER ==
[2022-11-19] MEDS ORDERED: MONT10TA97 (20:21)
[2022-11-19 20:43] VITALS: BP 153/75
[2022-11-19] MEDS ORDERED: diphenhydrAMINE 50MG/ML VIAL IV STA (20:59)
[2022-11-19] MEDS ORDERED: KETOROLAC 30 MG/ML 1ML VIAL IV ONE (21:00)
[2022-11-19] MEDS ORDERED: METOCLOPRAMIDE INJ 10MG/2ML VIAL IV ONE (21:00)
[2022-11-19] MEDS ORDERED: NS 1,000 ML IV ONE (21:00)
[2022-11-19] MEDS ORDERED: ISOVUE-370 76% 100ML VIAL As Ordered ONE (21:12)
== END 2022-11-19 22:52 | disposition home or self-care (01) ==
LOC: M ED 20:06
DX: G43.909 Migraine, unspecified, not intractable, without status migrainosus (principal); Z91.040 Latex allergy status; Z79.51 Long term (current) use of inhaled steroids; Z79.899 Other long term (current) drug therapy
CPT/HCPCS: 70450; 70496; 80047; 96374; 96375; 99284; J1200; J1885; J2765; Q9967

== ENCOUNTER 2022-12-13 18:26 | Emergency (ER) | payer OTHER ==
[~2022-12-13] VITALS: Ht 162.6 cm; Wt 82.9 kg
[~2022-12-13 18:26] MED LIST changes: +MONT10TA97
[2022-12-13] MEDS ORDERED: FLUT1BLS5 (18:47)
[2022-12-13 19:42] LABS: BASO % 0.3 % (0.0-1.0); EOS % 0.1 % (0.0-3.0); HEMATOCRIT 40.4 % (36.0-47.0); HEMOGLOBIN 13.8 g/dl (12.0-15.5); LYMPH # 2.3 10^3/uL (1.5-5.0); LYMPH % 20.4 % (24.0-44.0); MEAN CORPUSCULAR HEMOGLOBIN 29.6 pg (27.0-33.0); MEAN CORPUSCULAR HGB CONC 34.2 g/dl (32.0-36.5); MEAN CORPUSCULAR VOLUME 86.7 fl (80.0-96.0); MONO # 0.6 10^3/uL (0.0-0.8); MONO % 5.2 % (2.0-8.0); NEUTROPHILS # 8.3 10^3/uL (1.5-8.5); NEUTROPHILS % 73.6 % (36.0-66.0); PLATELET COUNT, AUTOMATED 306 10^3/uL (150-450); RED BLOOD COUNT 4.66 10^6/uL (4.00-5.40); WHITE BLOOD COUNT 11.3 10^3/uL (4.0-10.0)
[2022-12-13] MEDS ORDERED: KETOROLAC 30 MG/ML 1ML VIAL IV ONE (19:45)
[2022-12-13] MEDS ORDERED: NS 1,000 ML IV ONE (19:45)
[2022-12-13] MEDS ORDERED: ONDANSETRON 4MG 2ML VIAL IV ONE (19:45)
[2022-12-13] MEDS ORDERED: ISOVUE-370 76% 100ML VIAL As Ordered ONE (19:47)
[2022-12-13 20:08] LABS: LIPASE 23 U/L (12-53)
[2022-12-13 20:09] LABS: CK-MB VALUE MASS < 1.0 NG/ML (<3.6); MAGNESIUM LEVEL 2.3 MG/DL (1.8-2.4)
[2022-12-13 20:10] LABS: CPK CREATINE PHOSPHOKINASE 46 U/L (34-145); MB/CK RELATIVE INDEX 2.17 (< OR =4)
[2022-12-13 20:30] LABS: ERYTHROCYTE SEDIMENTATION RATE 2 mm/hr (0-20)
[2022-12-13 21:36] LABS: C REACTIVE PROTEIN QUANTITATIV < 0.40 MG/DL (<1.0)
[2022-12-13] MEDS ORDERED: TOPI-254 PO (22:03)
[2022-12-13 22:09] VITALS: BP 130/77
== END 2022-12-13 22:16 | disposition home or self-care (01) ==
LOC: M ED 18:26
DX: R07.89 Other chest pain (principal); R06.02 Shortness of breath; G43.909 Migraine, unspecified, not intractable, without status migrainosus; K21.9 Gastro-esophageal reflux disease without esophagitis; F41.9 Anxiety disorder, unspecified; Z91.040 Latex allergy status; Z79.51 Long term (current) use of inhaled steroids; Z79.899 Other long term (current) drug therapy
CPT/HCPCS: 36415; 71275; 80047; 82550; 82553; 83690; 83735; 84702; 85025; 85652; 86140; 93005; 96374; 96375; 99284; J1885; J2405; Q9967

== ENCOUNTER 2022-12-24 14:46 | Emergency (ER) | payer OTHER ==
[~2022-12-24] VITALS: Ht 162.6 cm; Wt 80.7 kg
[~2022-12-24 14:46] MED LIST changes: +TOPI-254 PO
[2022-12-24 19:03] VITALS: BP 140/92
[2022-12-25] MEDS ORDERED: MAGICMW SSP (15:14)
[2022-12-28] MEDS ORDERED: KETO10TAB PO (10:54)
== END 2022-12-24 19:09 | disposition home or self-care (01) ==
LOC: M ED 14:46
DX: R09.89 Other specified symptoms and signs involving the circulatory and respiratory systems (principal); R51.9 Headache, unspecified; J45.909 Unspecified asthma, uncomplicated; K21.9 Gastro-esophageal reflux disease without esophagitis; F41.9 Anxiety disorder, unspecified; Z91.040 Latex allergy status

== ENCOUNTER 2022-12-25 10:48 | Emergency (ER) | payer OTHER ==
[~2022-12-25] VITALS: Ht 162.6 cm; Wt 79.6 kg
[2022-12-25] MEDS ORDERED: NS 1,000 ML IV ONE (13:05)
[2022-12-25 13:32] LABS: BASO % 0.4 % (0.0-1.0); EOS % 0.4 % (0.0-3.0); HEMATOCRIT 40.4 % (36.0-47.0); HEMOGLOBIN 13.9 g/dl (12.0-15.5); LYMPH # 1.8 10^3/uL (1.5-5.0); LYMPH % 31.3 % (24.0-44.0); MEAN CORPUSCULAR HEMOGLOBIN 29.6 pg (27.0-33.0); MEAN CORPUSCULAR HGB CONC 34.4 g/dl (32.0-36.5); MONO # 0.3 10^3/uL (0.0-0.8); MONO % 5.2 % (2.0-8.0); NEUTROPHILS # 3.5 10^3/uL (1.5-8.5); NEUTROPHILS % 62.5 % (36.0-66.0); PLATELET COUNT, AUTOMATED 341 10^3/uL (150-450); WHITE BLOOD COUNT 5.6 10^3/uL (4.0-10.0)
[2022-12-25 13:46] LABS: ERYTHROCYTE SEDIMENTATION RATE 2 mm/hr (0-20)
[2022-12-25] MEDS ORDERED: ISOVUE-370 76% 100ML VIAL As Ordered ONE (13:49)
[2022-12-25 13:54] LABS: BLOOD UREA NITROGEN 7 MG/DL (9-23); C REACTIVE PROTEIN QUANTITATIV < 0.40 MG/DL (<1.0); CALCIUM LEVEL 9.6 MG/DL (8.5-10.1); CARBON DIOXIDE LEVEL 27 MMOL/L (20-31); CHLORIDE LEVEL 109 MMOL/L (98-107); CREATININE FOR GFR 0.72 MG/DL (0.55-1.30); GLOMERULAR FILTRATION RATE > 60.0 (>60); GLUCOSE, FASTING 97 MG/DL (60-100); POTASSIUM SERUM 3.8 MMOL/L (3.5-5.1); SODIUM LEVEL 142 MMOL/L (136-145)
[2022-12-25] MEDS ORDERED: MAGICMW SSP (15:14)
[2022-12-25] MEDS ORDERED: MAGIC MOUTHWASH *ED ONLY* 5ML ORAL SYRINGE SS ONE (15:15)
[2022-12-25 15:47] VITALS: BP 158/88
[2022-12-28] MEDS ORDERED: KETO10TAB PO (10:54)
== END 2022-12-25 16:06 | disposition home or self-care (01) ==
LOC: M ED 10:48
DX: F45.8 Other somatoform disorders (principal); R56.9 Unspecified convulsions; J45.909 Unspecified asthma, uncomplicated; K21.9 Gastro-esophageal reflux disease without esophagitis; F41.9 Anxiety disorder, unspecified
CPT/HCPCS: 36415; 70491; 71260; 80047; 80048; 84702; 85025; 85652; 86140; 99284; Q9967

== ENCOUNTER 2022-12-26 21:13 | Emergency (ER) | payer OTHER ==
[~2022-12-26 21:13] MED LIST changes: +MAGICMW SSP
[2022-12-26 21:17] VITALS: BP 134/82
[2022-12-28] MEDS ORDERED: KETO10TAB PO (10:54)
== END 2022-12-26 21:41 | disposition left against medical advice (07) ==
LOC: M ED 21:13
DX: J02.9 Acute pharyngitis, unspecified (principal); Z53.21 Procedure and treatment not carried out due to patient leaving prior to being seen by health care provider

== ENCOUNTER 2022-12-31 19:51 | Emergency (ER) | payer OTHER ==
[~2022-12-31] VITALS: Ht 162.6 cm; Wt 76.3 kg
[~2022-12-31 19:51] MED LIST changes: +KETO10TAB PO
[2023-01-01] MEDS ORDERED: LR 1,000 ML IV ONE (06:30)
[2023-01-01] MEDS ORDERED: HYOSCYAMINE SULFATE 0.125 MG SUBL TABLET PO ONE (06:30)
[2023-01-01] MEDS ORDERED: PANTOPRAZOLE 40MG VIAL IV ONE (06:30)
[2023-01-01] MEDS ORDERED: MAALOX 30 ML SUSP *UDC PO ONE (06:30)
[2023-01-01] MEDS ORDERED: ALPRAZolam 0.5 MG TAB PO ONE (06:35)
[2023-01-01 07:06] LABS: BASO % 0.6 % (0.0-1.0); EOS # 0.1 10^3/uL (0.0-0.5); EOS % 2.7 % (0.0-3.0); HEMATOCRIT 43.2 % (36.0-47.0); HEMOGLOBIN 14.5 g/dl (12.0-15.5); LYMPH # 1.7 10^3/uL (1.5-5.0); LYMPH % 32.8 % (24.0-44.0); MEAN CORPUSCULAR HEMOGLOBIN 28.7 pg (27.0-33.0); MEAN CORPUSCULAR HGB CONC 33.6 g/dl (32.0-36.5); MEAN CORPUSCULAR VOLUME 85.5 fl (80.0-96.0); MONO # 0.4 10^3/uL (0.0-0.8); MONO % 7.5 % (2.0-8.0); NEUTROPHILS # 2.9 10^3/uL (1.5-8.5); PLATELET COUNT, AUTOMATED 330 10^3/uL (150-450); RED BLOOD COUNT 5.05 10^6/uL (4.00-5.40); WHITE BLOOD COUNT 5.2 10^3/uL (4.0-10.0)
[2023-01-01 07:27] LABS: LIPASE 26 U/L (12-53)
[2023-01-01 07:30] LABS: ALBUMIN 4.3 G/DL (3.2-5.2); ALKALINE PHOSPHATASE 61 U/L (46-116); ALT/SGPT 51 U/L (7.0-40); AST/SGOT 35 U/L (<34); BILIRUBIN,TOTAL 1.2 MG/DL (0.3-1.2); BLOOD UREA NITROGEN 9 MG/DL (9-23); CARBON DIOXIDE LEVEL 23 MMOL/L (20-31); CHLORIDE LEVEL 104 MMOL/L (98-107); CREATININE FOR GFR 0.66 MG/DL (0.55-1.30); GLOMERULAR FILTRATION RATE > 60.0 (>60); GLUCOSE, FASTING 69 MG/DL (60-100); POTASSIUM SERUM 3.6 MMOL/L (3.5-5.1); SODIUM LEVEL 140 MMOL/L (136-145)
[2023-01-01] MEDS ORDERED: LORazepam 2 MG/ML 1ML VIAL IV STA (07:52)
[2023-01-01] MEDS ORDERED: OMEP-173 PO (10:06)
[2023-01-01] MEDS ORDERED: HYDR-3363 PO (10:06)
[2023-01-01 11:34] LABS: AMPHETAMINES LEVEL URINE NEGATIVE (NEGATIVE); BARBITURATES URINE NEGATIVE (NEGATIVE); CANNABINOIDS URINE NEGATIVE (NEGATIVE); COCAINE METABOLITE URINE NEGATIVE (NEGATIVE); METHADONE URINE NEGATIVE (NEGATIVE); OPIATES URINE NEGATIVE (NEGATIVE); PHENCYCLIDINE URINE NEGATIVE (NEGATIVE)
[2023-01-01 11:38] LABS: BENZODIAZEPINES URINE POSITIVE (NEGATIVE)
[2023-01-01 13:04] VITALS: BP 125/81; TEMP 96.8; O2SAT 99
== END 2023-01-01 13:16 | disposition home or self-care (01) ==
LOC: M ED 19:51
DX: R13.10 Dysphagia, unspecified (principal); F41.9 Anxiety disorder, unspecified; J45.909 Unspecified asthma, uncomplicated; K21.9 Gastro-esophageal reflux disease without esophagitis; G40.909 Epilepsy, unspecified, not intractable, without status epilepticus; Z91.040 Latex allergy status; Z79.51 Long term (current) use of inhaled steroids; Z79.899 Other long term (current) drug therapy
CPT/HCPCS: 80053; 80307; 83690; 85025; 87880; 96374; 96375; 99284; C9113; J2060

== ENCOUNTER → 2023-01-05 | Outpatient (CLI) | payer OTHER ==
[~2023-01-05] MED LIST changes: +HYDR-3363 PO; +OMEP-173 PO
== END ==
LOC: M CARPUL 08:28
PROVIDERS: ATTEND Nurse Practitioner Family
DX: R06.02 Shortness of breath (principal)

== ENCOUNTER → 2023-01-07 | Outpatient (CLI) | payer OTHER ==
[~2023-01-07] MED LIST changes: +E-Z-GAS II EFFERVESCENT PACKET (SODIUM BICARB./CITRIC ACID/SIMETHICONE) As Ordered ONE; +E-Z-HD 98% w/w 340GM SUSP BTL As Ordered ONE; +E-Z-PAQUE 96% w/w SUSP 176GM BTL As Ordered ONE
[2023-01-07 16:57] LABS: ALBUMIN 4.5 G/DL (3.2-5.2); BILIRUBIN,DIRECT 0.4 MG/DL (<0.4); TOTAL PROTEIN 7.2 G/DL (5.7-8.2)
== END ==
LOC: M RAD 08:14
PROVIDERS: ATTEND Physician Assistant
DX: K21.9 Gastro-esophageal reflux disease without esophagitis (principal); R74.01 Elevation of levels of liver transaminase levels; R13.13 Dysphagia, pharyngeal phase

== ENCOUNTER 2023-01-14 17:02 | Emergency (ER) | payer OTHER ==
[~2023-01-14] VITALS: Ht 154.9 cm; Wt 71.0 kg
[~2023-01-14 17:02] MED LIST changes: -E-Z-GAS II EFFERVESCENT PACKET (SODIUM BICARB./CITRIC ACID/SIMETHICONE) As Ordered ONE; -E-Z-HD 98% w/w 340GM SUSP BTL As Ordered ONE; -E-Z-PAQUE 96% w/w SUSP 176GM BTL As Ordered ONE
[2023-01-14] MEDS ORDERED: HYOSCYAMINE SULFATE 0.125 MG SUBL TABLET PO STA (19:47)
[2023-01-14] MEDS ORDERED: MAALOX 30 ML SUSP *UDC PO ONE (19:50)
[2023-01-14 19:56] LABS: BASO % 0.6 % (0.0-1.0); EOS % 0.4 % (0.0-3.0); HEMATOCRIT 40.8 % (36.0-47.0); HEMOGLOBIN 14.4 g/dl (12.0-15.5); LYMPH # 1.7 10^3/uL (1.5-5.0); MEAN CORPUSCULAR HEMOGLOBIN 29.6 pg (27.0-33.0); MEAN CORPUSCULAR HGB CONC 35.3 g/dl (32.0-36.5); MEAN CORPUSCULAR VOLUME 83.8 fl (80.0-96.0); MONO # 0.6 10^3/uL (0.0-0.8); MONO % 12.8 % (2.0-8.0); NEUTROPHILS # 2.6 10^3/uL (1.5-8.5); PLATELET COUNT, AUTOMATED 218 10^3/uL (150-450); RED BLOOD COUNT 4.87 10^6/uL (4.00-5.40)
[2023-01-14 20:15] LABS: BLOOD UREA NITROGEN 12 MG/DL (9-23); CALCIUM LEVEL 9.7 MG/DL (8.5-10.1); CARBON DIOXIDE LEVEL 20 MMOL/L (20-31); CHLORIDE LEVEL 102 MMOL/L (98-107); GLOMERULAR FILTRATION RATE > 60.0 (>60); GLUCOSE, FASTING 68 MG/DL (60-100); POTASSIUM SERUM 3.7 MMOL/L (3.5-5.1); SODIUM LEVEL 138 MMOL/L (136-145)
[2023-01-14 20:23] LABS: ERYTHROCYTE SEDIMENTATION RATE 2 mm/hr (0-20)
[2023-01-14 20:40] VITALS: BP 124/72; TEMP 97.5; O2SAT 100
[2023-01-14 22:13] LABS: C REACTIVE PROTEIN QUANTITATIV < 0.40 MG/DL (<1.0)
== END 2023-01-14 20:41 | disposition home or self-care (01) ==
LOC: M ED 17:02
DX: R09.89 Other specified symptoms and signs involving the circulatory and respiratory systems (principal); J02.9 Acute pharyngitis, unspecified; Z91.040 Latex allergy status; Z79.52 Long term (current) use of systemic steroids; Z79.83 Long term (current) use of bisphosphonates; Z79.899 Other long term (current) drug therapy

== ENCOUNTER 2023-01-22 10:08 | Emergency (ER) | payer OTHER ==
[~2023-01-22] VITALS: Ht 162.6 cm; Wt 69.9 kg
[2023-01-22] MEDS ORDERED: NS 1,000 ML IV ONE (12:15)
[2023-01-22 12:59] LABS: BASO % 0.5 % (0.0-1.0); EOS % 0.2 % (0.0-3.0); HEMATOCRIT 45.6 % (36.0-47.0); HEMOGLOBIN 15.3 g/dl (12.0-15.5); LYMPH # 0.9 10^3/uL (1.5-5.0); LYMPH % 19.6 % (24.0-44.0); MEAN CORPUSCULAR HEMOGLOBIN 28.7 pg (27.0-33.0); MEAN CORPUSCULAR HGB CONC 33.6 g/dl (32.0-36.5); MEAN CORPUSCULAR VOLUME 85.6 fl (80.0-96.0); MONO # 0.4 10^3/uL (0.0-0.8); MONO % 8.6 % (2.0-8.0); NEUTROPHILS # 3.1 10^3/uL (1.5-8.5); NEUTROPHILS % 70.6 % (36.0-66.0); PLATELET COUNT, AUTOMATED 177 10^3/uL (150-450); RED BLOOD COUNT 5.33 10^6/uL (4.00-5.40); WHITE BLOOD COUNT 4.4 10^3/uL (4.0-10.0)
[2023-01-22 13:11] LABS: AMPHETAMINES LEVEL URINE NEGATIVE (NEGATIVE); BARBITURATES URINE NEGATIVE (NEGATIVE); BENZODIAZEPINES URINE NEGATIVE (NEGATIVE); CANNABINOIDS URINE NEGATIVE (NEGATIVE); COCAINE METABOLITE URINE NEGATIVE (NEGATIVE); METHADONE URINE NEGATIVE (NEGATIVE); OPIATES URINE NEGATIVE (NEGATIVE); PHENCYCLIDINE URINE NEGATIVE (NEGATIVE)
[2023-01-22 13:13] LABS: CK-MB VALUE MASS < 1.0 NG/ML (<3.6)
[2023-01-22 13:14] LABS: ETHYL ALCOHOL (ETHANOL) < 0.003 % (0.000-0.010)
[2023-01-22 13:15] LABS: ACETAMINOPHEN LEVEL < 2.0 UG/ML (10.0-20.0)
[2023-01-22 13:16] LABS: ALKALINE PHOSPHATASE 52 U/L (46-116); ALT/SGPT 163 U/L (7.0-40); AST/SGOT 36 U/L (<34); BILIRUBIN,DIRECT 0.5 MG/DL (<0.4); BILIRUBIN,TOTAL 1.3 MG/DL (0.3-1.2); BLOOD UREA NITROGEN 6 MG/DL (9-23); CALCIUM LEVEL 9.8 MG/DL (8.5-10.1); CARBON DIOXIDE LEVEL 28 MMOL/L (20-31); CHLORIDE LEVEL 102 MMOL/L (98-107); CREATININE FOR GFR 0.56 MG/DL (0.55-1.30); GLOMERULAR FILTRATION RATE > 60.0 (>60); GLUCOSE, FASTING 84 MG/DL (60-100); POTASSIUM SERUM 3.6 MMOL/L (3.5-5.1); SALICYLATE LEVEL < 3.0 MG/DL (<30); SODIUM LEVEL 137 MMOL/L (136-145); TOTAL PROTEIN 6.5 G/DL (5.7-8.2)
[2023-01-22 13:17] LABS: FREE T4 1.28 NG/DL (0.89-1.76)
[2023-01-22 13:18] LABS: THYROID STIMULATING HORMONE 2.054 uIU/ML (0.55-4.78)
[2023-01-22 13:20] LABS: CPK CREATINE PHOSPHOKINASE 49 U/L (34-145); MB/CK RELATIVE INDEX 2.04 (< OR =4)
[2023-01-22 13:25] LABS: HCG, SERUM QUALITATIVE NEGATIVE (NEGATIVE)
[2023-01-22] MEDS ORDERED: LORazepam 0.5 MG TAB PO STA (14:00)
[2023-01-22] MEDS ORDERED: LORazepam 0.5 MG TAB PO ONE (18:10)
[2023-01-22 18:23] VITALS: BP 126/83; TEMP 97.5; O2SAT 99
[2023-01-22] MEDS ORDERED: ATIV1TAB10 PO (18:32)
== END 2023-01-22 18:38 | disposition home or self-care (01) ==
LOC: M ED 11:38
DX: F41.9 Anxiety disorder, unspecified (principal); R55 Syncope and collapse; K21.9 Gastro-esophageal reflux disease without esophagitis; J45.909 Unspecified asthma, uncomplicated; Z87.891 Personal history of nicotine dependence; I67.1 Cerebral aneurysm, nonruptured; Z91.040 Latex allergy status; Z79.51 Long term (current) use of inhaled steroids; Z79.899 Other long term (current) drug therapy

== ENCOUNTER 2023-01-27 19:20 | Emergency (ER) | payer OTHER ==
[~2023-01-27] VITALS: Ht 162.6 cm; Wt 67.2 kg
[~2023-01-27 19:20] MED LIST changes: +ATIV1TAB10 PO
[2023-01-27] MEDS ORDERED: ONDANSETRON 4MG ORAL DISINTEGRATING TAB PO ONE (21:20)
[2023-01-27] MEDS ORDERED: PANTOPRAZOLE 40MG VIAL IV ONE (21:50)
[2023-01-27 22:07] LABS: BASO % 0.4 % (0.0-1.0); EOS % 0.4 % (0.0-3.0); HEMATOCRIT 44.8 % (36.0-47.0); HEMOGLOBIN 15.3 g/dl (12.0-15.5); LYMPH # 1.4 10^3/uL (1.5-5.0); LYMPH % 30.3 % (24.0-44.0); MEAN CORPUSCULAR HEMOGLOBIN 28.9 pg (27.0-33.0); MEAN CORPUSCULAR HGB CONC 34.2 g/dl (32.0-36.5); MEAN CORPUSCULAR VOLUME 84.7 fl (80.0-96.0); MONO # 0.4 10^3/uL (0.0-0.8); MONO % 8.8 % (2.0-8.0); NEUTROPHILS # 2.7 10^3/uL (1.5-8.5); NEUTROPHILS % 60.1 % (36.0-66.0); PLATELET COUNT, AUTOMATED 240 10^3/uL (150-450); RED BLOOD COUNT 5.29 10^6/uL (4.00-5.40); WHITE BLOOD COUNT 4.5 10^3/uL (4.0-10.0)
[2023-01-27] MEDS ORDERED: PROT1TAB2 PO (22:25)
[2023-01-27 22:33] VITALS: BP 110/71; TEMP 96.8; O2SAT 99
== END 2023-01-27 22:34 | disposition home or self-care (01) ==
LOC: M ED 19:20
DX: K21.9 Gastro-esophageal reflux disease without esophagitis (principal); R56.9 Unspecified convulsions; J45.909 Unspecified asthma, uncomplicated; Z91.040 Latex allergy status; Z79.899 Other long term (current) drug therapy
CPT/HCPCS: 80047; 85025; 96374; 99283; C9113

== ENCOUNTER 2023-01-29 17:43 | Observation (INO) | payer OTHER ==
[~2023-01-29] VITALS: Ht 162.6 cm; Wt 67.3 kg
[~2023-01-29 17:43] MED LIST changes: +PROT1TAB2 PO
[2023-01-29] MEDS ORDERED: BUSP5TAB PO (17:54)
[2023-01-30 01:02] LABS: BASO % 0.5 % (0.0-1.0); EOS % 0.7 % (0.0-3.0); HEMATOCRIT 43.9 % (36.0-47.0); HEMOGLOBIN 15.2 g/dl (12.0-15.5); LYMPH # 1.5 10^3/uL (1.5-5.0); LYMPH % 36.3 % (24.0-44.0); MEAN CORPUSCULAR HGB CONC 34.6 g/dl (32.0-36.5); MEAN CORPUSCULAR VOLUME 83.6 fl (80.0-96.0); MONO # 0.4 10^3/uL (0.0-0.8); MONO % 9.5 % (2.0-8.0); NEUTROPHILS # 2.2 10^3/uL (1.5-8.5); NEUTROPHILS % 52.8 % (36.0-66.0); PLATELET COUNT, AUTOMATED 235 10^3/uL (150-450); RED BLOOD COUNT 5.25 10^6/uL (4.00-5.40); WHITE BLOOD COUNT 4.2 10^3/uL (4.0-10.0)
[2023-01-30] MEDS ORDERED: PANTOPRAZOLE 40MG VIAL IV ONE ×2 (02:15→22:20)
[2023-01-30] MEDS ORDERED: FLUCONAZOLE 400 MG in IV 1 EA IV ONE (02:15)
[2023-01-30] MEDS ORDERED: NS 1,000 ML IV ONE (03:05)
[2023-01-30 03:45] LABS: BLOOD UREA NITROGEN 7 MG/DL (9-23); CALCIUM LEVEL 7.5 MG/DL (8.5-10.1); CARBON DIOXIDE LEVEL 19 MMOL/L (20-31); CHLORIDE LEVEL 111 MMOL/L (98-107); CREATININE FOR GFR 0.44 MG/DL (0.55-1.30); GLOMERULAR FILTRATION RATE > 60.0 (>60); GLUCOSE, FASTING 66 MG/DL (60-100); POTASSIUM SERUM 2.6 MMOL/L (3.5-5.1); SODIUM LEVEL 144 MMOL/L (136-145)
[2023-01-30] MEDS ORDERED: KCL 10MEQ/100ML SWI (KRUN) 10 MEQ in IV 1 EA IV ONE ×4 (03:55)
[2023-01-30] MEDS ORDERED: PRIL10PO2 PO (04:18)
[2023-01-30] MEDS ORDERED: CETI1SYP16 PO (04:18)
[2023-01-30] MEDS ORDERED: ALBU8.5H INH (04:18)
[2023-01-30] MEDS ORDERED: HOME MED LIST COMPLETE! XX SCH (04:20)
[2023-01-30] MEDS ORDERED: POTASSIUM CHLORIDE 10% LIQ 20MEQ/15ML UDC PO ONE (04:35)
[2023-01-30 04:54] LABS: MAGNESIUM LEVEL 1.5 MG/DL (1.8-2.4)
[2023-01-30 05:03] LABS: RSV AMPLIFICATION NEGATIVE (NEGATIVE)
[2023-01-30 05:42] VITALS: BP 116/60; TEMP 97.7; O2SAT 100
[2023-01-30] MEDS: MAG SULF 1GM/100ML (MAG RUN) 1 GM in IV 1 EA IV SCH ×2 (06:58→08:25)
[2023-01-30] MEDS: PANTOPRAZOLE 40MG VIAL IV SCH (08:24)
[2023-01-30] MEDS: POTASSIUM CHLORIDE 10% LIQ 20MEQ/15ML UDC PO SCH ×2 (08:36→20:32)
[2023-01-30] MEDS ORDERED: PANTOPRAZOLE 40MG TAB (PROTONIX) PO SCH (09:00)
[2023-01-30] MEDS: KCL 10MEQ/100ML SWI (KRUN) 10 MEQ in IV 1 EA IV SCH ×4 (09:34→14:48)
[2023-01-30] MEDS ORDERED: ALBUTEROL SULFATE 2.5MG/0.5ML INH NEB SOLN NEB PRN (10:20)
[2023-01-30] MEDS ORDERED: ISOVUE-370 76% 100ML VIAL As Ordered ONE (10:26)
[2023-01-30 11:33] LABS: ALBUMIN 3.3 G/DL (3.2-5.2)
[2023-01-30] MEDS: ENOXAPARIN 40MG/0.4ML SYRINGE (J1650 PER 10MG) SC SCH (12:20)
[2023-01-30 12:51] LABS: BLOOD UREA NITROGEN 6 MG/DL (9-23); CALCIUM LEVEL 9.5 MG/DL (8.5-10.1); CARBON DIOXIDE LEVEL 20 MMOL/L (20-31); CHLORIDE LEVEL 104 MMOL/L (98-107); CREATININE FOR GFR 0.56 MG/DL (0.55-1.30); GLOMERULAR FILTRATION RATE > 60.0 (>60); GLUCOSE, FASTING 78 MG/DL (60-100); MAGNESIUM LEVEL 2.4 MG/DL (1.8-2.4); PHOSPHORUS LEVEL 2.2 MG/DL (2.5-4.9); POTASSIUM SERUM 3.4 MMOL/L (3.5-5.1); SODIUM LEVEL 138 MMOL/L (136-145)
[2023-01-30 14:00] VITALS: BP 103/70; TEMP 98.1; O2SAT 99
[2023-01-30] MEDS ORDERED: SODIUM PHOSPHATE INJ 20 MMOL in D5W 250 ML IV ONE (15:00)
[2023-01-30] MEDS: busPIRone 5 MG TAB PO SCH ×2 (16:43→20:32)
[2023-01-30] MEDS ORDERED: LORazepam 0.5 MG TAB PO PRN (17:20)
[2023-01-30 21:00] VITALS: BP 112/80; TEMP 97.5; O2SAT 100
[2023-01-30 22:50] LABS: BLOOD UREA NITROGEN < 5 MG/DL (9-23); CARBON DIOXIDE LEVEL 20 MMOL/L (20-31); CHLORIDE LEVEL 105 MMOL/L (98-107); CREATININE FOR GFR 0.52 MG/DL (0.55-1.30); GLOMERULAR FILTRATION RATE > 60.0 (>60); GLUCOSE, FASTING 69 MG/DL (60-100); PHOSPHORUS LEVEL 2.7 MG/DL (2.5-4.9); POTASSIUM SERUM 3.7 MMOL/L (3.5-5.1); SODIUM LEVEL 139 MMOL/L (136-145)
[2023-01-31 05:35] VITALS: BP 105/65; TEMP 97.9; O2SAT 99
[2023-01-31 05:56] LABS: HEMATOCRIT 39.5 % (36.0-47.0); HEMOGLOBIN 13.3 g/dl (12.0-15.5); MEAN CORPUSCULAR HEMOGLOBIN 28.9 pg (27.0-33.0); MEAN CORPUSCULAR HGB CONC 33.7 g/dl (32.0-36.5); MEAN CORPUSCULAR VOLUME 85.7 fl (80.0-96.0); PLATELET COUNT, AUTOMATED 190 10^3/uL (150-450); RED BLOOD COUNT 4.61 10^6/uL (4.00-5.40); WHITE BLOOD COUNT 3.7 10^3/uL (4.0-10.0)
[2023-01-31 06:21] LABS: BLOOD UREA NITROGEN < 5 MG/DL (9-23); CALCIUM LEVEL 9.2 MG/DL (8.5-10.1); CARBON DIOXIDE LEVEL 22 MMOL/L (20-31); CHLORIDE LEVEL 106 MMOL/L (98-107); CREATININE FOR GFR 0.55 MG/DL (0.55-1.30); GLOMERULAR FILTRATION RATE > 60.0 (>60); GLUCOSE, FASTING 65 MG/DL (60-100); MAGNESIUM LEVEL 2.2 MG/DL (1.8-2.4); POTASSIUM SERUM 3.7 MMOL/L (3.5-5.1); SODIUM LEVEL 141 MMOL/L (136-145)
[2023-01-31] MEDS ORDERED: GLUCAGON INJ 1MG VIAL SC PRN (06:25)
[2023-01-31] MEDS ORDERED: DEXTROSE 50% 50ML SYRINGE IV PRN (06:25)
[2023-01-31] MEDS ORDERED: GLUCOSE 4GM CHEW TABLET PO PRN (06:25)
[2023-01-31] MEDS ORDERED: KCL 20MEQ IN D5/0.45NS 1000ML 1,000 ML IV SCH (06:25)
[2023-01-31] MEDS: busPIRone 5 MG TAB PO SCH ×4 (08:44→22:05)
[2023-01-31] MEDS: ENOXAPARIN 40MG/0.4ML SYRINGE (J1650 PER 10MG) SC SCH (08:44)
[2023-01-31] MEDS: PANTOPRAZOLE 40MG VIAL IV SCH (08:44)
[2023-01-31 09:28] LABS: BLOOD UREA NITROGEN < 5 MG/DL (9-23); CALCIUM LEVEL 8.9 MG/DL (8.5-10.1); CARBON DIOXIDE LEVEL 21 MMOL/L (20-31); CHLORIDE LEVEL 106 MMOL/L (98-107); CREATININE FOR GFR 0.54 MG/DL (0.55-1.30); GLOMERULAR FILTRATION RATE > 60.0 (>60); GLUCOSE, FASTING 99 MG/DL (60-100); MAGNESIUM LEVEL 1.9 MG/DL (1.8-2.4); POTASSIUM SERUM 3.4 MMOL/L (3.5-5.1); SODIUM LEVEL 139 MMOL/L (136-145)
[2023-01-31 14:00] VITALS: BP 106/65; TEMP 97.9; O2SAT 100
[2023-01-31] MEDS ORDERED: POTASSIUM CHLORIDE 10% LIQ 20MEQ/15ML UDC PO ONE (14:00)
[2023-01-31 16:10] LABS: HEMATOCRIT 38.2 % (36.0-47.0); HEMOGLOBIN 13.6 g/dl (12.0-15.5); MEAN CORPUSCULAR HEMOGLOBIN 30.2 pg (27.0-33.0); MEAN CORPUSCULAR HGB CONC 35.6 g/dl (32.0-36.5); MEAN CORPUSCULAR VOLUME 84.7 fl (80.0-96.0); PLATELET COUNT, AUTOMATED 188 10^3/uL (150-450); RED BLOOD COUNT 4.51 10^6/uL (4.00-5.40); WHITE BLOOD COUNT 3.5 10^3/uL (4.0-10.0)
[2023-01-31 16:35] LABS: BLOOD UREA NITROGEN < 5 MG/DL (9-23); CALCIUM LEVEL 9.1 MG/DL (8.5-10.1); CARBON DIOXIDE LEVEL 23 MMOL/L (20-31); CHLORIDE LEVEL 106 MMOL/L (98-107); CREATININE FOR GFR 0.51 MG/DL (0.55-1.30); GLOMERULAR FILTRATION RATE > 60.0 (>60); GLUCOSE, FASTING 132 MG/DL (60-100); PHOSPHORUS LEVEL 1.8 MG/DL (2.5-4.9); POTASSIUM SERUM 3.4 MMOL/L (3.5-5.1); SODIUM LEVEL 139 MMOL/L (136-145)
[2023-01-31] MEDS: KCL 40MEQ IN D5/0.45NS 1000ML 1,000 ML IV SCH ×2 (17:26→21:48)
[2023-01-31 20:00] VITALS: BP 120/70; TEMP 98.2; O2SAT 100
[2023-01-31] MEDS ORDERED: POTASSIUM PHOSPHATE INJ 20 MMOL in D5W 250 ML IV ONE (20:00)
[2023-01-31 22:30] LABS: BLOOD UREA NITROGEN < 5 MG/DL (9-23); CALCIUM LEVEL 8.9 MG/DL (8.5-10.1); CARBON DIOXIDE LEVEL 24 MMOL/L (20-31); CHLORIDE LEVEL 106 MMOL/L (98-107); CREATININE FOR GFR 0.49 MG/DL (0.55-1.30); GLOMERULAR FILTRATION RATE > 60.0 (>60); GLUCOSE, FASTING 116 MG/DL (60-100); PHOSPHORUS LEVEL 2.9 MG/DL (2.5-4.9); POTASSIUM SERUM 3.4 MMOL/L (3.5-5.1); SODIUM LEVEL 138 MMOL/L (136-145)
[2023-01-31] MEDS ORDERED: KCL 10MEQ/100ML SWI (KRUN) 10 MEQ in IV 1 EA IV SCH (23:00)
[2023-01-31] MEDS ORDERED: LORazepam 2 MG/ML 1ML VIAL IV STA (23:07)
[2023-01-31] MEDS ORDERED: PANTOPRAZOLE 40MG VIAL IV ONE (23:10)
[2023-02-01 06:00] VITALS: BP 110/70; TEMP 97.7; O2SAT 99
[2023-02-01 06:24] LABS: HEMATOCRIT 37.9 % (36.0-47.0); HEMOGLOBIN 12.9 g/dl (12.0-15.5); MEAN CORPUSCULAR VOLUME 85.2 fl (80.0-96.0); PLATELET COUNT, AUTOMATED 168 10^3/uL (150-450); RED BLOOD COUNT 4.45 10^6/uL (4.00-5.40)
[2023-02-01 06:47] LABS: BLOOD UREA NITROGEN < 5 MG/DL (9-23); CARBON DIOXIDE LEVEL 25 MMOL/L (20-31); CHLORIDE LEVEL 107 MMOL/L (98-107); CREATININE FOR GFR 0.47 MG/DL (0.55-1.30); GLOMERULAR FILTRATION RATE > 60.0 (>60); GLUCOSE, FASTING 127 MG/DL (60-100); MAGNESIUM LEVEL 1.9 MG/DL (1.8-2.4); PHOSPHORUS LEVEL 3.5 MG/DL (2.5-4.9); POTASSIUM SERUM 3.7 MMOL/L (3.5-5.1); SODIUM LEVEL 140 MMOL/L (136-145)
[2023-02-01 07:46] LABS: ALBUMIN 3.1 G/DL (3.2-5.2); ALKALINE PHOSPHATASE 38 U/L (46-116); ALT/SGPT 87 U/L (7.0-40); AST/SGOT 27 U/L (<34); BILIRUBIN,DIRECT 0.5 MG/DL (<0.4); BILIRUBIN,TOTAL 1.2 MG/DL (0.3-1.2); TOTAL PROTEIN 5.3 G/DL (5.7-8.2)
[2023-02-01] MEDS: busPIRone 5 MG TAB PO SCH ×3 (09:00→21:00)
[2023-02-01] MEDS: ENOXAPARIN 40MG/0.4ML SYRINGE (J1650 PER 10MG) SC SCH (09:55)
[2023-02-01] MEDS: PANTOPRAZOLE 40MG VIAL IV SCH ×2 (09:55→21:18)
[2023-02-01] MEDS: KCL 40MEQ IN D5/0.45NS 1000ML 1,000 ML IV SCH ×2 (09:56→23:37)
[2023-02-01 14:00] VITALS: BP 120/78; TEMP 97.9; O2SAT 100
[2023-02-01] MEDS ORDERED: ACETAMINOPHEN 1000MG 100ML IV BAG IV ONE (16:35)
[2023-02-01 20:00] VITALS: BP 121/64; TEMP 98.1; O2SAT 99
[2023-02-01] MEDS ORDERED: LORazepam 2 MG/ML 1ML VIAL IV STA (23:17)
[2023-02-02] MEDS ORDERED: ONDANSETRON 4MG 2ML VIAL IV ONE (01:00)
[2023-02-02 05:56] LABS: BASO % 0.9 % (0.0-1.0); EOS % 0.9 % (0.0-3.0); HEMATOCRIT 38.7 % (36.0-47.0); HEMOGLOBIN 13.4 g/dl (12.0-15.5); LYMPH # 1.2 10^3/uL (1.5-5.0); LYMPH % 35.6 % (24.0-44.0); MEAN CORPUSCULAR HEMOGLOBIN 29.1 pg (27.0-33.0); MEAN CORPUSCULAR HGB CONC 34.6 g/dl (32.0-36.5); MEAN CORPUSCULAR VOLUME 83.9 fl (80.0-96.0); MONO # 0.3 10^3/uL (0.0-0.8); MONO % 7.7 % (2.0-8.0); NEUTROPHILS # 1.8 10^3/uL (1.5-8.5); NEUTROPHILS % 54.9 % (36.0-66.0); PLATELET COUNT, AUTOMATED 166 10^3/uL (150-450); RED BLOOD COUNT 4.61 10^6/uL (4.00-5.40); WHITE BLOOD COUNT 3.3 10^3/uL (4.0-10.0)
[2023-02-02 06:00] VITALS: BP 104/59; TEMP 98.1; O2SAT 98
[2023-02-02 06:26] LABS: BLOOD UREA NITROGEN < 5 MG/DL (9-23); CALCIUM LEVEL 10.1 MG/DL (8.5-10.1); CARBON DIOXIDE LEVEL 25 MMOL/L (20-31); CHLORIDE LEVEL 106 MMOL/L (98-107); CREATININE FOR GFR 0.46 MG/DL (0.55-1.30); GLOMERULAR FILTRATION RATE > 60.0 (>60); GLUCOSE, FASTING 115 MG/DL (60-100); MAGNESIUM LEVEL 1.6 MG/DL (1.8-2.4); POTASSIUM SERUM 3.7 MMOL/L (3.5-5.1); SODIUM LEVEL 138 MMOL/L (136-145)
[2023-02-02] MEDS: busPIRone 5 MG TAB PO SCH ×3 (08:33→19:43)
[2023-02-02] MEDS: PANTOPRAZOLE 40MG VIAL IV SCH ×2 (08:34→20:41)
[2023-02-02] MEDS: MAG SULF 1GM/100ML (MAG RUN) 1 GM in IV 1 EA IV SCH ×2 (08:34→08:35)
[2023-02-02] MEDS: ENOXAPARIN 40MG/0.4ML SYRINGE (J1650 PER 10MG) SC SCH (08:34)
[2023-02-02] MEDS: ONDANSETRON 4MG 2ML VIAL IV PRN ×3 (09:55→21:50)
[2023-02-02 14:00] VITALS: BP 110/68; TEMP 98.1; O2SAT 100
[2023-02-02] MEDS: LORazepam 2 MG/ML 1ML VIAL IV PRN ×2 (14:25→20:42)
[2023-02-02] MEDS: KCL 40MEQ IN D5/0.45NS 1000ML 1,000 ML IV SCH (17:05)
[2023-02-02 20:00] VITALS: BP 133/84; TEMP 98; O2SAT 100
[2023-02-03 05:47] LABS: BASO % 0.8 % (0.0-1.0); EOS # 0.1 10^3/uL (0.0-0.5); EOS % 2.5 % (0.0-3.0); HEMATOCRIT 41.3 % (36.0-47.0); HEMOGLOBIN 14.1 g/dl (12.0-15.5); LYMPH # 1.5 10^3/uL (1.5-5.0); LYMPH % 41.9 % (24.0-44.0); MEAN CORPUSCULAR HEMOGLOBIN 28.7 pg (27.0-33.0); MEAN CORPUSCULAR HGB CONC 34.1 g/dl (32.0-36.5); MEAN CORPUSCULAR VOLUME 83.9 fl (80.0-96.0); MONO # 0.3 10^3/uL (0.0-0.8); MONO % 8.5 % (2.0-8.0); NEUTROPHILS # 1.7 10^3/uL (1.5-8.5); PLATELET COUNT, AUTOMATED 163 10^3/uL (150-450); RED BLOOD COUNT 4.92 10^6/uL (4.00-5.40); WHITE BLOOD COUNT 3.6 10^3/uL (4.0-10.0)
[2023-02-03 06:00] VITALS: BP 115/56; TEMP 98.6; O2SAT 99
[2023-02-03 06:18] LABS: BLOOD UREA NITROGEN < 5 MG/DL (9-23); CALCIUM LEVEL 10.4 MG/DL (8.5-10.1); CARBON DIOXIDE LEVEL 25 MMOL/L (20-31); CHLORIDE LEVEL 105 MMOL/L (98-107); CREATININE FOR GFR 0.58 MG/DL (0.55-1.30); GLOMERULAR FILTRATION RATE > 60.0 (>60); GLUCOSE, FASTING 99 MG/DL (60-100); POTASSIUM SERUM 4.2 MMOL/L (3.5-5.1); SODIUM LEVEL 138 MMOL/L (136-145)
[2023-02-03] MEDS: busPIRone 5 MG TAB PO SCH ×3 (10:21→20:23)
[2023-02-03] MEDS: PANTOPRAZOLE 40MG VIAL IV SCH ×2 (10:21→20:22)
[2023-02-03] MEDS: ENOXAPARIN 40MG/0.4ML SYRINGE (J1650 PER 10MG) SC SCH (10:21)
[2023-02-03] MEDS: D5W/0.45% SODIUM CHLORIDE 1,000 ML IV SCH ×2 (10:21→17:53)
[2023-02-03 14:00] VITALS: BP 104/68; TEMP 98.1; O2SAT 99
[2023-02-03] MEDS: LORazepam 2 MG/ML 1ML VIAL IV PRN ×2 (16:10→23:54)
[2023-02-03] MEDS: ONDANSETRON 4MG 2ML VIAL IV PRN ×2 (16:10→20:21)
[2023-02-03 20:00] VITALS: BP 125/77; TEMP 98.1; O2SAT 90
[2023-02-04] MEDS: D5W/0.45% SODIUM CHLORIDE 1,000 ML IV SCH ×3 (03:17→23:27)
[2023-02-04 05:59] LABS: BASO % 0.6 % (0.0-1.0); EOS # 0.1 10^3/uL (0.0-0.5); EOS % 3.7 % (0.0-3.0); HEMATOCRIT 38.1 % (36.0-47.0); HEMOGLOBIN 12.9 g/dl (12.0-15.5); LYMPH # 1.2 10^3/uL (1.5-5.0); LYMPH % 37.5 % (24.0-44.0); MEAN CORPUSCULAR HGB CONC 33.9 g/dl (32.0-36.5); MEAN CORPUSCULAR VOLUME 85.6 fl (80.0-96.0); MONO # 0.3 10^3/uL (0.0-0.8); MONO % 10.2 % (2.0-8.0); NEUTROPHILS # 1.6 10^3/uL (1.5-8.5); NEUTROPHILS % 47.7 % (36.0-66.0); PLATELET COUNT, AUTOMATED 144 10^3/uL (150-450); RED BLOOD COUNT 4.45 10^6/uL (4.00-5.40); WHITE BLOOD COUNT 3.3 10^3/uL (4.0-10.0)
[2023-02-04 06:00] VITALS: BP 108/60; TEMP 98.1; O2SAT 99
[2023-02-04 06:29] LABS: BLOOD UREA NITROGEN < 5 MG/DL (9-23); CARBON DIOXIDE LEVEL 28 MMOL/L (20-31); CHLORIDE LEVEL 106 MMOL/L (98-107); CREATININE FOR GFR 0.56 MG/DL (0.55-1.30); GLOMERULAR FILTRATION RATE > 60.0 (>60); GLUCOSE, FASTING 124 MG/DL (60-100); MAGNESIUM LEVEL 1.9 MG/DL (1.8-2.4); POTASSIUM SERUM 3.5 MMOL/L (3.5-5.1); SODIUM LEVEL 140 MMOL/L (136-145)
[2023-02-04] MEDS: busPIRone 5 MG TAB PO SCH ×3 (08:42→21:00)
[2023-02-04] MEDS: ENOXAPARIN 40MG/0.4ML SYRINGE (J1650 PER 10MG) SC SCH (08:46)
[2023-02-04] MEDS: PANTOPRAZOLE 40MG VIAL IV SCH ×2 (08:46→21:07)
[2023-02-04] MEDS: LORazepam 2 MG/ML 1ML VIAL IV PRN ×2 (13:18→21:02)
[2023-02-04 14:00] VITALS: BP 98/70; TEMP 98.2; O2SAT 98
[2023-02-04] MEDS: ONDANSETRON 4MG 2ML VIAL IV PRN (18:55)
[2023-02-04 21:15] VITALS: BP 102/64; TEMP 98.1; O2SAT 100
[2023-02-05 05:23] VITALS: BP 100/58; TEMP 97.9; O2SAT 99
[2023-02-05 06:10] LABS: BASO % 0.7 % (0.0-1.0); EOS # 0.1 10^3/uL (0.0-0.5); EOS % 2.5 % (0.0-3.0); HEMATOCRIT 38.8 % (36.0-47.0); HEMOGLOBIN 12.9 g/dl (12.0-15.5); LYMPH % 35.8 % (24.0-44.0); MEAN CORPUSCULAR HEMOGLOBIN 29.1 pg (27.0-33.0); MEAN CORPUSCULAR HGB CONC 33.2 g/dl (32.0-36.5); MEAN CORPUSCULAR VOLUME 87.4 fl (80.0-96.0); MONO # 0.4 10^3/uL (0.0-0.8); MONO % 12.6 % (2.0-8.0); NEUTROPHILS # 1.4 10^3/uL (1.5-8.5); PLATELET COUNT, AUTOMATED 151 10^3/uL (150-450); RED BLOOD COUNT 4.44 10^6/uL (4.00-5.40); WHITE BLOOD COUNT 2.9 10^3/uL (4.0-10.0)
[2023-02-05 06:37] LABS: BLOOD UREA NITROGEN < 5 MG/DL (9-23); CARBON DIOXIDE LEVEL 30 MMOL/L (20-31); CHLORIDE LEVEL 105 MMOL/L (98-107); CREATININE FOR GFR 0.43 MG/DL (0.55-1.30); GLOMERULAR FILTRATION RATE > 60.0 (>60); GLUCOSE, FASTING 112 MG/DL (60-100); MAGNESIUM LEVEL 1.7 MG/DL (1.8-2.4); POTASSIUM SERUM 3.2 MMOL/L (3.5-5.1); SODIUM LEVEL 141 MMOL/L (136-145)
[2023-02-05] MEDS: MAG SULF 1GM/100ML (MAG RUN) 1 GM in IV 1 EA IV SCH ×2 (07:39→08:48)
[2023-02-05] MEDS: PANTOPRAZOLE 40MG VIAL IV SCH ×2 (07:47→21:30)
[2023-02-05] MEDS: KCL 20MEQ IN D5/0.45NS 1000ML 1,000 ML IV SCH ×2 (07:47→21:30)
[2023-02-05] MEDS: ENOXAPARIN 40MG/0.4ML SYRINGE (J1650 PER 10MG) SC SCH (07:47)
[2023-02-05] MEDS: busPIRone 5 MG TAB PO SCH ×3 (07:51→21:00)
[2023-02-05] MEDS: ONDANSETRON 4MG 2ML VIAL IV PRN ×2 (08:48→21:30)
[2023-02-05] MEDS: KCL 10MEQ/100ML SWI (KRUN) 10 MEQ in IV 1 EA IV SCH ×2 (10:42→12:10)
[2023-02-05 13:46] LABS: BLOOD UREA NITROGEN < 5 MG/DL (9-23); CALCIUM LEVEL 9.5 MG/DL (8.5-10.1); CARBON DIOXIDE LEVEL 31 MMOL/L (20-31); CHLORIDE LEVEL 102 MMOL/L (98-107); CREATININE FOR GFR 0.49 MG/DL (0.55-1.30); GLOMERULAR FILTRATION RATE > 60.0 (>60); GLUCOSE, FASTING 109 MG/DL (60-100); POTASSIUM SERUM 3.5 MMOL/L (3.5-5.1); SODIUM LEVEL 139 MMOL/L (136-145)
[2023-02-05 14:00] VITALS: BP 144/73; TEMP 97.1; O2SAT 98
[2023-02-05] MEDS ORDERED: ONDANSETRON 4MG 2ML VIAL IV ONE (14:50)
[2023-02-05] MEDS ORDERED: LIDOCAINE 2% 100MG/5ML SDV (FOR ANES.) As Ordered ONE (15:22)
[2023-02-05] MEDS ORDERED: propofoL 200 MG/20 ML VIAL As Ordered ONE (15:22)
[2023-02-05] MEDS ORDERED: fentaNYL 100 MCG/2 ML INJECTION As Ordered ONE (15:34)
[2023-02-05] MEDS ORDERED: HYOSCYAMINE SULFATE 0.125 MG SUBL TABLET SL PRN (16:15)
[2023-02-05] MEDS: LORazepam 2 MG/ML 1ML VIAL IV PRN (16:16)
[2023-02-05 20:00] VITALS: BP 113/67; TEMP 97.5; O2SAT 99
[2023-02-06] MEDS: KCL 20MEQ IN D5/0.45NS 1000ML 1,000 ML IV SCH ×2 (01:46→08:03)
[2023-02-06 06:00] VITALS: BP 121/73; TEMP 97.4; O2SAT 98
[2023-02-06 06:07] LABS: BASO % 0.7 % (0.0-1.0); EOS # 0.1 10^3/uL (0.0-0.5); EOS % 1.9 % (0.0-3.0); HEMOGLOBIN 13.3 g/dl (12.0-15.5); LYMPH # 0.9 10^3/uL (1.5-5.0); LYMPH % 34.6 % (24.0-44.0); MEAN CORPUSCULAR HEMOGLOBIN 28.8 pg (27.0-33.0); MEAN CORPUSCULAR HGB CONC 33.3 g/dl (32.0-36.5); MEAN CORPUSCULAR VOLUME 86.6 fl (80.0-96.0); MONO # 0.3 10^3/uL (0.0-0.8); MONO % 11.5 % (2.0-8.0); NEUTROPHILS # 1.4 10^3/uL (1.5-8.5); NEUTROPHILS % 51.3 % (36.0-66.0); PLATELET COUNT, AUTOMATED 166 10^3/uL (150-450); RED BLOOD COUNT 4.62 10^6/uL (4.00-5.40); WHITE BLOOD COUNT 2.7 10^3/uL (4.0-10.0)
[2023-02-06 06:34] LABS: BLOOD UREA NITROGEN < 5 MG/DL (9-23); CALCIUM LEVEL 9.3 MG/DL (8.5-10.1); CARBON DIOXIDE LEVEL 29 MMOL/L (20-31); CHLORIDE LEVEL 105 MMOL/L (98-107); CREATININE FOR GFR 0.52 MG/DL (0.55-1.30); GLOMERULAR FILTRATION RATE > 60.0 (>60); GLUCOSE, FASTING 106 MG/DL (60-100); MAGNESIUM LEVEL 2.3 MG/DL (1.8-2.4); POTASSIUM SERUM 3.8 MMOL/L (3.5-5.1); SODIUM LEVEL 138 MMOL/L (136-145)
[2023-02-06] MEDS: ONDANSETRON 4MG 2ML VIAL IV PRN (08:03)
[2023-02-06] MEDS: ENOXAPARIN 40MG/0.4ML SYRINGE (J1650 PER 10MG) SC SCH (08:04)
[2023-02-06] MEDS: LORazepam 2 MG/ML 1ML VIAL IV PRN (08:04)
[2023-02-06] MEDS: PANTOPRAZOLE 40MG VIAL IV SCH (08:04)
[2023-02-06] MEDS: busPIRone 5 MG TAB PO SCH (08:14)
[2023-02-06] MEDS ORDERED: LOVE1INJ SC (10:16)
[2023-02-06] MEDS ORDERED: PANT40IN4 IV (10:16)
[2023-02-06] MEDS ORDERED: ATIV2INJ5 IV (10:16)
[2023-02-06] MEDS ORDERED: HYOS125TA SL (10:16)
== END 2023-02-06 12:21 | disposition other institution (70) ==
LOC: M ED 17:43 → M ED INP 17:44 → M MSPAV 01-30 05:35
PROVIDERS: ADMIT Family Medicine; ATTEND Internal Medicine
DX: R13.10 Dysphagia, unspecified (principal); E87.6 Hypokalemia; E83.42 Hypomagnesemia; E83.39 Other disorders of phosphorus metabolism; E87.21 Acute metabolic acidosis; J45.909 Unspecified asthma, uncomplicated; K21.9 Gastro-esophageal reflux disease without esophagitis; F41.9 Anxiety disorder, unspecified; F32.A Depression, unspecified; G40.909 Epilepsy, unspecified, not intractable, without status epilepticus; G43.909 Migraine, unspecified, not intractable, without status migrainosus; I67.1 Cerebral aneurysm, nonruptured; R05.8 Other specified cough; R63.4 Abnormal weight loss; K29.70 Gastritis, unspecified, without bleeding; K31.7 Polyp of stomach and duodenum; K44.9 Diaphragmatic hernia without obstruction or gangrene; R11.2 Nausea with vomiting, unspecified; I82.611 Acute embolism and thrombosis of superficial veins of right upper extremity; Z87.891 Personal history of nicotine dependence; Z79.899 Other long term (current) drug therapy; Z79.01 Long term (current) use of anticoagulants; Z91.040 Latex allergy status
CPT/HCPCS: 36415; 43239; 70491; 71045; 80048; 80076; 82040; 83735; 84100; 85025; 85027; 87631; 88305; 92610; 93005; 93971; 94667; 96361; 96365; 96366; 96367; 96372; 96375; 96376; 99285; C9113; J0131; J1650; J2060; J2405; J3010; J3475; Q9967

== ENCOUNTER 2023-02-14 19:29 | Emergency (ER) | payer OTHER ==
[~2023-02-14] VITALS: Ht 162.6 cm; Wt 64.2 kg
[~2023-02-14 19:29] MED LIST changes: +ALBU8.5H INH; +ATIV2INJ5 IV; +BUSP5TAB PO; +CETI1SYP16 PO; +HYOS125TA SL; +LOVE1INJ SC; +PANT40IN4 IV; +PRIL10PO2 PO
[2023-02-14] MEDS ORDERED: BUSP5TA (19:43)
[2023-02-15 02:52] VITALS: TEMP 98.2
[2023-02-15 04:31] LABS: BASO % 0.5 % (0.0-1.0); EOS % 0.3 % (0.0-3.0); HEMATOCRIT 40.1 % (36.0-47.0); HEMOGLOBIN 13.7 g/dl (12.0-15.5); LYMPH # 1.5 10^3/uL (1.5-5.0); LYMPH % 39.6 % (24.0-44.0); MEAN CORPUSCULAR HEMOGLOBIN 29.7 pg (27.0-33.0); MEAN CORPUSCULAR HGB CONC 34.2 g/dl (32.0-36.5); MEAN CORPUSCULAR VOLUME 86.8 fl (80.0-96.0); MONO # 0.4 10^3/uL (0.0-0.8); MONO % 9.4 % (2.0-8.0); NEUTROPHILS # 1.9 10^3/uL (1.5-8.5); NEUTROPHILS % 49.9 % (36.0-66.0); PLATELET COUNT, AUTOMATED 257 10^3/uL (150-450); RED BLOOD COUNT 4.62 10^6/uL (4.00-5.40); WHITE BLOOD COUNT 3.8 10^3/uL (4.0-10.0)
[2023-02-15] MEDS ORDERED: HYOSCYAMINE SULFATE 0.125 MG SUBL TABLET SL ONE (04:35)
[2023-02-15 04:56] LABS: CK-MB VALUE MASS < 1.0 NG/ML (<3.6)
[2023-02-15 04:57] LABS: HCG, SERUM QUALITATIVE NEGATIVE (NEGATIVE)
[2023-02-15 05:03] LABS: BLOOD UREA NITROGEN < 5 MG/DL (9-23); CALCIUM LEVEL 9.8 MG/DL (8.5-10.1); CARBON DIOXIDE LEVEL 21 MMOL/L (20-31); CHLORIDE LEVEL 105 MMOL/L (98-107); CPK CREATINE PHOSPHOKINASE 80 U/L (34-145); CREATININE FOR GFR 0.52 MG/DL (0.55-1.30); GLOMERULAR FILTRATION RATE > 60.0 (>60); GLUCOSE, FASTING 72 MG/DL (60-100); MB/CK RELATIVE INDEX 1.25 (< OR =4); POTASSIUM SERUM 3.8 MMOL/L (3.5-5.1); SODIUM LEVEL 141 MMOL/L (136-145)
[2023-02-15 05:17] LABS: INR 1.12; PROTHROMBIN TIME 14.6 SECONDS (12.5-14.5)
[2023-02-15 05:21] LABS: D-DIMER QUANT < 270 ng/ml (<500)
[2023-02-15] MEDS ORDERED: LORazepam 2 MG/ML 1ML VIAL IV STA (05:46)
[2023-02-15] MEDS ORDERED: KETOROLAC 30 MG/ML 1ML VIAL IV ONE (05:50)
[2023-02-15] MEDS ORDERED: PANTOPRAZOLE 40MG VIAL IV ONE (05:50)
[2023-02-15 05:59] VITALS: BP 121/68
[2023-02-15 06:29] VITALS: O2SAT 92
== END 2023-02-15 06:33 | disposition home or self-care (01) ==
LOC: M ED 19:29
DX: R07.89 Other chest pain (principal); J45.909 Unspecified asthma, uncomplicated; K21.9 Gastro-esophageal reflux disease without esophagitis; F32.A Depression, unspecified; Z91.040 Latex allergy status; Z79.51 Long term (current) use of inhaled steroids; Z79.899 Other long term (current) drug therapy
CPT/HCPCS: 36415; 80048; 82550; 82553; 83735; 84703; 85025; 85379; 85610; 85730; 93005; 96374; 96375; 99284; C9113; J1885; J2060

== ENCOUNTER → 2023-02-25 | Outpatient (REF) | payer OTHER ==
[~2023-02-25] MED LIST changes: +BUSP5TA
[2023-02-25 13:06] LABS: BLOOD UREA NITROGEN 10 MG/DL (9-23); CALCIUM LEVEL 10.4 MG/DL (8.5-10.1); CARBON DIOXIDE LEVEL 25 MMOL/L (20-31); CHLORIDE LEVEL 102 MMOL/L (98-107); CREATININE FOR GFR 0.61 MG/DL (0.55-1.30); GLOMERULAR FILTRATION RATE > 60.0 (>60); GLUCOSE, FASTING 75 MG/DL (60-100); POTASSIUM SERUM 3.5 MMOL/L (3.5-5.1); SODIUM LEVEL 141 MMOL/L (136-145)
== END ==
LOC: M LAB REF 11:29
PROVIDERS: ATTEND Nurse Practitioner Family
DX: E87.6 Hypokalemia (principal); R73.03 Prediabetes

== ENCOUNTER 2023-03-03 07:15 | Emergency (ER) | payer OTHER ==
[~2023-03-03] VITALS: Ht 162.6 cm; Wt 59.2 kg
[2023-03-03] MEDS ORDERED: KCL 10MEQ/100ML SWI (KRUN) 10 MEQ in IV 1 EA IV ONE (08:45)
[2023-03-03] MEDS ORDERED: POTASSIUM CHLORIDE 10% LIQ 20MEQ/15ML UDC PO ONE (08:45)
[2023-03-03 09:26] LABS: HEMATOCRIT 45.1 % (36.0-47.0); HEMOGLOBIN 15.6 g/dl (12.0-15.5); MEAN CORPUSCULAR HEMOGLOBIN 29.2 pg (27.0-33.0); MEAN CORPUSCULAR HGB CONC 34.6 g/dl (32.0-36.5); MEAN CORPUSCULAR VOLUME 84.3 fl (80.0-96.0); PLATELET COUNT, AUTOMATED 203 10^3/uL (150-450); RED BLOOD COUNT 5.35 10^6/uL (4.00-5.40); WHITE BLOOD COUNT 4.3 10^3/uL (4.0-10.0)
[2023-03-03] MEDS ORDERED: LORazepam 2 MG/ML 1ML VIAL IV STA (10:04)
[2023-03-03] MEDS ORDERED: MYLA1SUS PO (13:29)
[2023-03-03] MEDS ORDERED: SUCR1SS PO (13:29)
[2023-03-03] MEDS ORDERED: ONDA4TAB6 PO (13:29)
[2023-03-03 13:48] VITALS: BP 110/74; TEMP 97; O2SAT 100
== END 2023-03-03 13:55 | disposition home or self-care (01) ==
LOC: M ED 07:15
DX: E87.6 Hypokalemia (principal); F45.8 Other somatoform disorders; Z87.891 Personal history of nicotine dependence; Z91.040 Latex allergy status; Z79.51 Long term (current) use of inhaled steroids; Z79.899 Other long term (current) drug therapy
CPT/HCPCS: 80047; 83735; 85027; 93005; 96365; 96375; 99284; J2060

== ENCOUNTER 2023-03-05 12:29 | Emergency (ER) | payer OTHER ==
[~2023-03-05] VITALS: Ht 162.6 cm; Wt 58.7 kg
[~2023-03-05 12:29] MED LIST changes: +MYLA1SUS PO; +ONDA4TAB6 PO; +SUCR1SS PO
[2023-03-05 12:51] VITALS: BP 120/85; TEMP 98; O2SAT 100
[2023-03-05] MEDS ORDERED: AMITRIPTYLINE 25MG TABLET PO STA (18:16)
[2023-03-05] MEDS ORDERED: AMIT25TA19 PO (20:08)
[2023-03-05] MEDS ORDERED: XANA1TAB2 PO (20:08)
== END 2023-03-05 20:23 | disposition home or self-care (01) ==
LOC: EDBD 12:29 → M ED 12:29
DX: R09.89 Other specified symptoms and signs involving the circulatory and respiratory systems (principal); F41.0 Panic disorder [episodic paroxysmal anxiety]; Z91.040 Latex allergy status; R51.9 Headache, unspecified; R56.9 Unspecified convulsions; J45.909 Unspecified asthma, uncomplicated; Z79.899 Other long term (current) drug therapy; Z79.51 Long term (current) use of inhaled steroids

== ENCOUNTER → 2023-03-25 | Outpatient (REF) | payer OTHER ==
[~2023-03-25] MED LIST changes: +AMIT25TA19 PO; +XANA1TAB2 PO
[2023-03-25 14:11] LABS: BLOOD UREA NITROGEN 8 MG/DL (9-23); CALCIUM LEVEL 10.4 MG/DL (8.5-10.1); CARBON DIOXIDE LEVEL 25 MMOL/L (20-31); CHLORIDE LEVEL 99 MMOL/L (98-107); GLOMERULAR FILTRATION RATE > 60.0 (>60); GLUCOSE, FASTING 63 MG/DL (60-100); POTASSIUM SERUM 3.9 MMOL/L (3.5-5.1); SODIUM LEVEL 137 MMOL/L (136-145)
== END ==
LOC: M LAB REF 12:26
PROVIDERS: ATTEND Nurse Practitioner Family
DX: E87.6 Hypokalemia (principal)

== ENCOUNTER 2023-03-28 21:14 | Emergency (ER) | payer OTHER ==
[~2023-03-28] VITALS: Ht 162.6 cm; Wt 54.4 kg
[2023-03-28] MEDS ORDERED: NS 1,000 ML IV ONE (22:15)
[2023-03-28] MEDS ORDERED: ONDANSETRON 4MG 2ML VIAL IV ONE (22:15)
[2023-03-28 22:17] LABS: BASO % 0.6 % (0.0-1.0); EOS % 0.6 % (0.0-3.0); HEMATOCRIT 42.2 % (36.0-47.0); HEMOGLOBIN 14.4 g/dl (12.0-15.5); LYMPH # 1.4 10^3/uL (1.5-5.0); LYMPH % 44.3 % (24.0-44.0); MEAN CORPUSCULAR HEMOGLOBIN 29.6 pg (27.0-33.0); MEAN CORPUSCULAR HGB CONC 34.1 g/dl (32.0-36.5); MEAN CORPUSCULAR VOLUME 86.7 fl (80.0-96.0); MONO # 0.4 10^3/uL (0.0-0.8); MONO % 10.8 % (2.0-8.0); NEUTROPHILS # 1.4 10^3/uL (1.5-8.5); NEUTROPHILS % 43.7 % (36.0-66.0); PLATELET COUNT, AUTOMATED 223 10^3/uL (150-450); RED BLOOD COUNT 4.87 10^6/uL (4.00-5.40); WHITE BLOOD COUNT 3.2 10^3/uL (4.0-10.0)
[2023-03-28 22:39] LABS: LIPASE 26 U/L (12-53)
[2023-03-28 22:41] LABS: ALBUMIN 3.8 G/DL (3.2-5.2); ALKALINE PHOSPHATASE 44 U/L (46-116); ALT/SGPT 38 U/L (7.0-40); AST/SGOT 27 U/L (<34); BILIRUBIN,DIRECT 0.6 MG/DL (<0.4); BILIRUBIN,TOTAL 1.3 MG/DL (0.3-1.2); BLOOD UREA NITROGEN 8 MG/DL (9-23); CALCIUM LEVEL 10.8 MG/DL (8.5-10.1); CARBON DIOXIDE LEVEL 26 MMOL/L (20-31); CHLORIDE LEVEL 99 MMOL/L (98-107); CREATININE FOR GFR 0.74 MG/DL (0.55-1.30); GLOMERULAR FILTRATION RATE > 60.0 (>60); GLUCOSE, FASTING 94 MG/DL (60-100); POTASSIUM SERUM 3.3 MMOL/L (3.5-5.1); SODIUM LEVEL 136 MMOL/L (136-145); TOTAL PROTEIN 6.5 G/DL (5.7-8.2)
[2023-03-28] MEDS ORDERED: POTASSIUM CHLORIDE 10% LIQ 20MEQ/15ML UDC PO ONE (22:50)
[2023-03-28 23:09] LABS: HCG, SERUM QUALITATIVE NEGATIVE (NEGATIVE)
[2023-03-29] MEDS ORDERED: FOSFOMYCIN TROMETHAMINE 3 GM POWDER PACKET (MONUROL) PO ONE (00:20)
[2023-03-29] MEDS ORDERED: cefTRIAXone SOD 1 GM in D5W MINI-BAG PLUS 50 ML IV ONE (03:30)
[2023-03-29] MEDS ORDERED: KCL 10MEQ/100ML SWI (KRUN) 10 MEQ in IV 1 EA IV ONE (03:30)
[2023-03-29] MEDS ORDERED: MIRA3350 PO (05:04)
[2023-03-29 05:59] VITALS: TEMP 96.7
[2023-03-29 06:00] VITALS: BP 105/64; O2SAT 99
== END 2023-03-29 06:06 | disposition home or self-care (01) ==
LOC: M ED 21:14
DX: K59.00 Constipation, unspecified (principal); R13.10 Dysphagia, unspecified; K21.9 Gastro-esophageal reflux disease without esophagitis; F32.A Depression, unspecified; Z79.899 Other long term (current) drug therapy; Z91.040 Latex allergy status
CPT/HCPCS: 74018; 80048; 80076; 81001; 83690; 84703; 85025; 87086; 93041; 96361; 96365; 96366; 96368; 96375; 99285; J0696; J2405

== ENCOUNTER 2023-04-04 20:12 | Emergency (ER) | payer OTHER ==
[~2023-04-04] VITALS: Ht 162.6 cm; Wt 53.9 kg
[2023-04-04] MEDS ORDERED: POTA20EL (20:24)
[2023-04-05 02:50] VITALS: BP 105/59; TEMP 98.8; O2SAT 98
== END 2023-04-05 03:32 | disposition left against medical advice (07) ==
LOC: M ED 20:12
DX: Z53.21 Procedure and treatment not carried out due to patient leaving prior to being seen by health care provider (principal)

== ENCOUNTER 2023-04-11 06:13 | Emergency (ER) | payer OTHER ==
[~2023-04-11] VITALS: Ht 162.6 cm; Wt 52.5 kg
[~2023-04-11 06:13] MED LIST changes: +POTA20EL
[2023-04-11 08:58] LABS: BASO % 0.8 % (0.0-1.0); EOS % 0.3 % (0.0-3.0); HEMOGLOBIN 14.9 g/dl (12.0-15.5); LYMPH # 1.3 10^3/uL (1.5-5.0); MEAN CORPUSCULAR HEMOGLOBIN 29.8 pg (27.0-33.0); MEAN CORPUSCULAR HGB CONC 33.9 g/dl (32.0-36.5); MONO # 0.3 10^3/uL (0.0-0.8); MONO % 8.9 % (2.0-8.0); NEUTROPHILS # 2.2 10^3/uL (1.5-8.5); NEUTROPHILS % 56.7 % (36.0-66.0); PLATELET COUNT, AUTOMATED 168 10^3/uL (150-450); WHITE BLOOD COUNT 3.8 10^3/uL (4.0-10.0)
[2023-04-11 09:16] LABS: LIPASE 25 U/L (12-53)
[2023-04-11 09:19] LABS: ALBUMIN 3.7 G/DL (3.2-5.2); ALKALINE PHOSPHATASE 40 U/L (46-116); ALT/SGPT 59 U/L (7.0-40); AST/SGOT 51 U/L (<34); BILIRUBIN,DIRECT 0.6 MG/DL (<0.4); BILIRUBIN,TOTAL 1.4 MG/DL (0.3-1.2); BLOOD UREA NITROGEN 9 MG/DL (9-23); CALCIUM LEVEL 9.8 MG/DL (8.5-10.1); CARBON DIOXIDE LEVEL 25 MMOL/L (20-31); CHLORIDE LEVEL 100 MMOL/L (98-107); CREATININE FOR GFR 0.54 MG/DL (0.55-1.30); GLOMERULAR FILTRATION RATE > 60.0 (>60); GLUCOSE, FASTING 71 MG/DL (60-100); POTASSIUM SERUM 3.4 MMOL/L (3.5-5.1); SODIUM LEVEL 137 MMOL/L (136-145); TOTAL PROTEIN 6.4 G/DL (5.7-8.2)
[2023-04-11 10:48] VITALS: BP 100/63; TEMP 96.5; O2SAT 100
[2023-04-15] MEDS ORDERED: SUCR1SS PO (01:34)
[2023-04-15] MEDS ORDERED: CETI10CH PO (01:34)
== END 2023-04-11 10:58 | disposition home or self-care (01) ==
LOC: M ED 06:13
DX: K80.66 Calculus of gallbladder and bile duct with acute and chronic cholecystitis without obstruction (principal); K21.9 Gastro-esophageal reflux disease without esophagitis; K59.00 Constipation, unspecified; Z91.040 Latex allergy status; Z79.83 Long term (current) use of bisphosphonates; Z79.52 Long term (current) use of systemic steroids; Z79.899 Other long term (current) drug therapy

== ENCOUNTER 2023-04-28 15:53 | Emergency (ER) | payer OTHER ==
[~2023-04-28] VITALS: Ht 162.6 cm; Wt 51.1 kg
[~2023-04-28 15:53] MED LIST changes: +CETI10CH PO; +MIRT1TAB15 PO
[2023-04-28] MEDS ORDERED: ESCITALOPRAM (16:45)
[2023-04-28 18:32] LABS: APPEARANCE, URINE CLOUDY (CLEAR); BACTERIA, URINE AUTO NEGATIVE (NEGATIVE); BILIRUBIN, URINE AUTO NEGATIVE (NEGATIVE); BLOOD, URINE BLOOD 3+ (NEGATIVE); COLOR, URINE AMBER (YELLOW); GLUCOSE, URINE (UA) AUTO 1+ mg/dL (NEGATIVE); KETONE, URINE AUTO 2+ mg/dL (NEGATIVE); LEUKOCYTE ESTERASE, URINE AUTO 2+ (NEGATIVE); MUCUS, URINE LARGE (NEGATIVE); NITRITE, URINE AUTO NEGATIVE (NEGATIVE); PROTEIN, URINE AUTO 3+ mg/dL (NEGATIVE); RBC, URINE AUTO TNTC /HPF (0-3); SQUAMOUS EPITHELIAL CELL UR AU 0 /HPF (0-6); UROBILINOGEN, URINE AUTO 0.2 mg/dL (0.0-2.0); WBC, URINE AUTO TNTC /HPF (0-3)
[2023-04-28] MEDS ORDERED: FAMOTIDINE 20MG/2ML VIAL IVP ONE (20:55)
[2023-04-28 21:29] LABS: BASO % 0.4 % (0.0-1.0); HEMATOCRIT 36.9 % (36.0-47.0); HEMOGLOBIN 12.9 g/dl (12.0-15.5); LYMPH # 1.2 10^3/uL (1.5-5.0); LYMPH % 43.2 % (24.0-44.0); MEAN CORPUSCULAR HEMOGLOBIN 30.6 pg (27.0-33.0); MEAN CORPUSCULAR VOLUME 87.4 fl (80.0-96.0); MONO # 0.2 10^3/uL (0.0-0.8); MONO % 7.6 % (2.0-8.0); NEUTROPHILS # 1.4 10^3/uL (1.5-8.5); NEUTROPHILS % 48.4 % (36.0-66.0); PLATELET COUNT, AUTOMATED 191 10^3/uL (150-450); RED BLOOD COUNT 4.22 10^6/uL (4.00-5.40); WHITE BLOOD COUNT 2.8 10^3/uL (4.0-10.0)
[2023-04-28 21:50] LABS: CK-MB VALUE MASS < 1.0 NG/ML (<3.6)
[2023-04-28 21:59] LABS: ALBUMIN 3.3 G/DL (3.2-5.2); ALKALINE PHOSPHATASE 38 U/L (46-116); ALT/SGPT 45 U/L (7.0-40); AST/SGOT 36 U/L (<34); BILIRUBIN,DIRECT 0.6 MG/DL (<0.4); BILIRUBIN,TOTAL 1.2 MG/DL (0.3-1.2); BLOOD UREA NITROGEN 5 MG/DL (9-23); CALCIUM LEVEL 9.5 MG/DL (8.5-10.1); CARBON DIOXIDE LEVEL 22 MMOL/L (20-31); CHLORIDE LEVEL 104 MMOL/L (98-107); CPK CREATINE PHOSPHOKINASE 37 U/L (34-145); CREATININE FOR GFR 0.47 MG/DL (0.55-1.30); GLOMERULAR FILTRATION RATE > 60.0 (>60); GLUCOSE, FASTING 71 MG/DL (60-100); POTASSIUM SERUM 2.6 MMOL/L (3.5-5.1); SODIUM LEVEL 141 MMOL/L (136-145); TOTAL PROTEIN 5.7 G/DL (5.7-8.2)
[2023-04-28 22:27] LABS: MAGNESIUM LEVEL 1.8 MG/DL (1.8-2.4)
[2023-04-28] MEDS ORDERED: POTASSIUM CHLORIDE 10MEQ SR TABLET PO ONE (23:35)
[2023-04-29] MEDS ORDERED: POTASSIUM CHLORIDE 10MEQ SR TABLET PO ONE
[2023-04-29] MEDS ORDERED: CEFUROXIME 500 MG TAB PO ONE (00:05)
[2023-04-29] MEDS ORDERED: CEFU50TA PO (01:04)
[2023-04-29 01:58] VITALS: BP 134/81; TEMP 97.6; O2SAT 94
== END 2023-04-29 02:00 | disposition home or self-care (01) ==
LOC: M ED 15:53
DX: E87.6 Hypokalemia (principal); N39.0 Urinary tract infection, site not specified; R09.89 Other specified symptoms and signs involving the circulatory and respiratory systems; R63.4 Abnormal weight loss; K59.00 Constipation, unspecified; R13.10 Dysphagia, unspecified; Z86.69 Personal history of other diseases of the nervous system and sense organs; Z86.79 Personal history of other diseases of the circulatory system; J45.909 Unspecified asthma, uncomplicated; Z79.52 Long term (current) use of systemic steroids; Z79.899 Other long term (current) drug therapy; Z91.040 Latex allergy status
CPT/HCPCS: 71045; 74018; 80048; 80076; 81001; 82550; 82553; 83735; 85025; 93005; 96374; 99284; S0028

== ENCOUNTER 2023-05-06 07:05 | Emergency (ER) | payer OTHER ==
[~2023-05-06] VITALS: Ht 162.6 cm; Wt 48.6 kg
[~2023-05-06 07:05] MED LIST changes: +CEFU50TA PO; +ESCITALOPRAM
[2023-05-06 07:06] VITALS: TEMP 97.5
[2023-05-06] MEDS ORDERED: ARIP1TAB4 (07:17)
[2023-05-06 08:26] LABS: HEMATOCRIT 41.9 % (36.0-47.0); HEMOGLOBIN 13.8 g/dl (12.0-15.5); MEAN CORPUSCULAR HEMOGLOBIN 29.8 pg (27.0-33.0); MEAN CORPUSCULAR HGB CONC 32.9 g/dl (32.0-36.5); MEAN CORPUSCULAR VOLUME 90.5 fl (80.0-96.0); PLATELET COUNT, AUTOMATED 179 10^3/uL (150-450); RED BLOOD COUNT 4.63 10^6/uL (4.00-5.40); WHITE BLOOD COUNT 2.3 10^3/uL (4.0-10.0)
[2023-05-06 08:54] LABS: OSMOLALITY SERUM 292 MOSM/KG (275-295)
[2023-05-06 08:57] LABS: THYROID STIMULATING HORMONE 3.818 uIU/ML (0.55-4.78)
[2023-05-06 09:00] LABS: ALBUMIN 3.7 G/DL (3.2-5.2); ALKALINE PHOSPHATASE 37 U/L (46-116); ALT/SGPT 47 U/L (7.0-40); AST/SGOT 41 U/L (<34); BILIRUBIN,DIRECT 0.6 MG/DL (<0.4); BILIRUBIN,TOTAL 1.2 MG/DL (0.3-1.2); BLOOD UREA NITROGEN 12 MG/DL (9-23); CALCIUM LEVEL 10.1 MG/DL (8.5-10.1); CARBON DIOXIDE LEVEL 31 MMOL/L (20-31); CHLORIDE LEVEL 104 MMOL/L (98-107); CREATININE FOR GFR 0.61 MG/DL (0.55-1.30); GLOMERULAR FILTRATION RATE > 60.0 (>60); GLUCOSE, FASTING 83 MG/DL (60-100); MAGNESIUM LEVEL 2.1 MG/DL (1.8-2.4); POTASSIUM SERUM 2.7 MMOL/L (3.5-5.1); SODIUM LEVEL 145 MMOL/L (136-145); TOTAL PROTEIN 6.3 G/DL (5.7-8.2)
[2023-05-06] MEDS ORDERED: ACETAMINOPHEN 160MG/5ML SUSP UDC DYE-FREE PO ONE (09:40)
[2023-05-06] MEDS ORDERED: POTASSIUM CHLORIDE 10% LIQ 20MEQ/15ML UDC PO ONE (09:40)
[2023-05-06] MEDS ORDERED: POTA20EL PO (09:44)
[2023-05-06 10:02] LABS: BASO % 1.3 % (0.0-1.0); EOS # 0.1 10^3/uL (0.0-0.5); EOS % 2.2 % (0.0-3.0); LYMPH # 1.1 10^3/uL (1.5-5.0); LYMPH % 46.3 % (24.0-44.0); MONO # 0.2 10^3/uL (0.0-0.8); MONO % 9.2 % (2.0-8.0)
[2023-05-06 10:25] LABS: NEUTROPHILS # 0.9 10^3/uL (1.5-8.5)
[2023-05-06 10:31] LABS: PLATELET ESTIMATE NORMAL (NORMAL)
[2023-05-06] MEDS ORDERED: hydrOXYzine 10MG/5ML SYRUP PO PRN (10:45)
[2023-05-06 10:57] VITALS: BP 123/74; O2SAT 100
== END 2023-05-06 11:31 | disposition home or self-care (01) ==
LOC: M ED 07:05
DX: E87.6 Hypokalemia (principal); R51.9 Headache, unspecified; D72.818 Other decreased white blood cell count; K90.9 Intestinal malabsorption, unspecified; I45.10 Unspecified right bundle-branch block; Z91.040 Latex allergy status; Z79.52 Long term (current) use of systemic steroids; Z79.899 Other long term (current) drug therapy

== ENCOUNTER 2023-05-10 13:31 | Emergency (ER) | payer OTHER ==
[~2023-05-10] VITALS: Ht 162.6 cm; Wt 46.5 kg
[~2023-05-10 13:31] MED LIST changes: +ARIP1TAB4; +POTA20EL PO
[2023-05-10 16:59] LABS: RSV AMPLIFICATION NEGATIVE (NEGATIVE)
[2023-05-10 18:07] VITALS: BP 109/69; TEMP 97.7; O2SAT 100
== END 2023-05-10 18:11 | disposition home or self-care (01) ==
LOC: M ED 13:31
DX: J06.9 Acute upper respiratory infection, unspecified (principal); J45.909 Unspecified asthma, uncomplicated; K21.9 Gastro-esophageal reflux disease without esophagitis; F41.9 Anxiety disorder, unspecified; Z79.899 Other long term (current) drug therapy; Z91.040 Latex allergy status

== ENCOUNTER 2023-05-22 17:08 | Emergency (ER) | payer OTHER ==
[~2023-05-22] VITALS: Ht 162.6 cm; Wt 43.8 kg
[2023-05-22 17:09] VITALS: TEMP 98.2
[2023-05-22 19:02] LABS: BASO % 0.4 % (0.0-1.0); EOS % 0.2 % (0.0-3.0); HEMATOCRIT 45.3 % (36.0-47.0); HEMOGLOBIN 15.2 g/dl (12.0-15.5); LYMPH # 1.3 10^3/uL (1.5-5.0); MEAN CORPUSCULAR HEMOGLOBIN 30.2 pg (27.0-33.0); MEAN CORPUSCULAR HGB CONC 33.6 g/dl (32.0-36.5); MEAN CORPUSCULAR VOLUME 90.1 fl (80.0-96.0); MONO # 0.3 10^3/uL (0.0-0.8); MONO % 5.4 % (2.0-8.0); NEUTROPHILS # 3.2 10^3/uL (1.5-8.5); PLATELET COUNT, AUTOMATED 182 10^3/uL (150-450); RED BLOOD COUNT 5.03 10^6/uL (4.00-5.40); WHITE BLOOD COUNT 4.8 10^3/uL (4.0-10.0)
[2023-05-22 19:29] LABS: CK-MB VALUE MASS < 1.0 NG/ML (<3.6); LIPASE 30 U/L (12-53)
[2023-05-22 19:30] LABS: CPK CREATINE PHOSPHOKINASE < 15 U/L (34-145)
[2023-05-22 19:31] LABS: ALBUMIN 3.6 G/DL (3.2-5.2); ALKALINE PHOSPHATASE 55 U/L (46-116); ALT/SGPT 53 U/L (7.0-40); AST/SGOT 47 U/L (<34); BILIRUBIN,DIRECT 0.6 MG/DL (<0.4); BILIRUBIN,TOTAL 1.6 MG/DL (0.3-1.2); TOTAL PROTEIN 6.6 G/DL (5.7-8.2)
[2023-05-22 19:47] LABS: MAGNESIUM LEVEL 2.2 MG/DL (1.8-2.4)
[2023-05-22 20:30] LABS: AMPHETAMINES LEVEL URINE NEGATIVE (NEGATIVE); BARBITURATES URINE NEGATIVE (NEGATIVE); CANNABINOIDS URINE NEGATIVE (NEGATIVE); COCAINE METABOLITE URINE NEGATIVE (NEGATIVE); METHADONE URINE NEGATIVE (NEGATIVE); OPIATES URINE NEGATIVE (NEGATIVE); PHENCYCLIDINE URINE NEGATIVE (NEGATIVE)
[2023-05-22 20:32] LABS: BENZODIAZEPINES URINE POSITIVE (NEGATIVE)
[2023-05-22] MEDS ORDERED: KETOROLAC 30 MG/ML 1ML VIAL IV ONE (21:40)
[2023-05-22] MEDS ORDERED: PERCOCET 5MG/325MG TAB PO ONE (21:40)
[2023-05-22 23:01] VITALS: BP 119/76; O2SAT 98
[2023-05-24] MEDS ORDERED: MACR100C43 PO (11:11)
== END 2023-05-22 23:03 | disposition home or self-care (01) ==
LOC: M ED 17:08
DX: R09.89 Other specified symptoms and signs involving the circulatory and respiratory systems (principal); R07.9 Chest pain, unspecified; R31.9 Hematuria, unspecified; R06.02 Shortness of breath; Z91.040 Latex allergy status; Z79.51 Long term (current) use of inhaled steroids; Z79.899 Other long term (current) drug therapy; Z79.2 Long term (current) use of antibiotics

== ENCOUNTER 2023-05-27 13:39 | Emergency (ER) | payer OTHER ==
[~2023-05-27] VITALS: Ht 162.6 cm; Wt 45.0 kg
[~2023-05-27 13:39] MED LIST changes: +MACR100C43 PO
[2023-05-27] MEDS: SUCRALFATE SUSP 1GM/10ML UD PO ONE ×2 (14:40→14:42)
[2023-05-27 15:24] LABS: BLOOD UREA NITROGEN 14 MG/DL (9-23); CALCIUM LEVEL 10.4 MG/DL (8.5-10.1); CARBON DIOXIDE LEVEL 26 MMOL/L (20-31); CHLORIDE LEVEL 107 MMOL/L (98-107); GLOMERULAR FILTRATION RATE > 60.0 (>60); GLUCOSE, FASTING 93 MG/DL (60-100); POTASSIUM SERUM 3.2 MMOL/L (3.5-5.1); SODIUM LEVEL 144 MMOL/L (136-145)
[2023-05-27] MEDS ORDERED: POTASSIUM CHLORIDE 10% LIQ 20MEQ/15ML UDC PO ONE ×2 (15:30→16:00)
[2023-05-27 16:52] VITALS: BP 123/81; TEMP 98.5; O2SAT 97
[2023-06-01] MEDS ORDERED: PROTPAK PO (09:21)
[2023-06-01] MEDS ORDERED: POTA20EL PO (09:21)
== END 2023-05-27 16:46 | disposition home or self-care (01) ==
LOC: M ED 13:39 → EDBD 13:39 → M ED 16:46
DX: R09.89 Other specified symptoms and signs involving the circulatory and respiratory systems (principal); K21.9 Gastro-esophageal reflux disease without esophagitis; F41.9 Anxiety disorder, unspecified; J45.909 Unspecified asthma, uncomplicated; Z91.040 Latex allergy status

== ENCOUNTER 2023-05-31 19:37 | Emergency (ER) | payer OTHER ==
[~2023-05-31] VITALS: Ht 162.6 cm; Wt 42.2 kg
[2023-05-31 19:39] VITALS: BP 109/74; TEMP 97.7; O2SAT 93
[2023-06-01] MEDS ORDERED: POTA20EL PO (09:21)
[2023-06-01] MEDS ORDERED: PROTPAK PO (09:21)
== END 2023-05-31 19:45 | disposition left against medical advice (07) ==
LOC: M ED 19:37
DX: Z53.21 Procedure and treatment not carried out due to patient leaving prior to being seen by health care provider (principal)

== ENCOUNTER 2023-06-02 09:44 | Day surgery (SDC) | payer OTHER ==
[~2023-06-02] VITALS: Ht 162.6 cm; Wt 42.3 kg
[~2023-06-02 09:44] MED LIST changes: +PROTPAK PO
[2023-06-02] MEDS ORDERED: propofoL 200 MG/20 ML VIAL As Ordered ONE ×2 (11:13→11:29)
[2023-06-02] MEDS ORDERED: fentaNYL 100 MCG/2 ML INJECTION As Ordered ONE (11:13)
[2023-06-02 11:43] VITALS: TEMP 97.4
[2023-06-02] MEDS ORDERED: ACETAMINOPHEN 325MG/10.15ML UDC PO ONE (11:55)
[2023-06-02 12:25] VITALS: BP 122/86; O2SAT 100
[2023-06-03] MEDS ORDERED: ALPR1CON PO (07:23)
[2023-06-03] MEDS ORDERED: OMEP90SU PO ×2 (07:23→17:37)
== END 2023-06-02 12:50 | disposition home or self-care (01) ==
LOC: M SDC 09:44
PROVIDERS: ATTEND Surgery
DX: R13.10 Dysphagia, unspecified (principal); K21.9 Gastro-esophageal reflux disease without esophagitis; J45.909 Unspecified asthma, uncomplicated; Z79.899 Other long term (current) drug therapy
CPT/HCPCS: 43246; J3010

== ENCOUNTER 2023-06-03 05:49 | Emergency (ER) | payer OTHER ==
[~2023-06-03] VITALS: Ht 162.6 cm; Wt 42.3 kg
[2023-06-03 05:50] VITALS: TEMP 96.8; O2SAT 100
[2023-06-03] MEDS ORDERED: OMEP90SU PO ×2 (07:23→17:37)
[2023-06-03] MEDS ORDERED: ALPR1CON PO (07:23)
[2023-06-03 07:45] VITALS: BP 114/69
== END 2023-06-03 08:28 | disposition home or self-care (01) ==
LOC: M ED 05:49
DX: R09.89 Other specified symptoms and signs involving the circulatory and respiratory systems (principal); Z91.040 Latex allergy status; Z79.51 Long term (current) use of inhaled steroids; Z79.899 Other long term (current) drug therapy

== ENCOUNTER 2023-06-03 13:57 | Emergency (ER) | payer OTHER ==
[~2023-06-03] VITALS: Ht 162.6 cm; Wt 42.3 kg
[~2023-06-03 13:57] MED LIST changes: +ALPR1CON PO; +OMEP90SU PO
[2023-06-03 16:17] LABS: BASO % 0.2 % (0.0-1.0); EOS % 0.1 % (0.0-3.0); HEMATOCRIT 44.5 % (36.0-47.0); LYMPH # 1.2 10^3/uL (1.5-5.0); LYMPH % 13.4 % (24.0-44.0); MEAN CORPUSCULAR HEMOGLOBIN 30.3 pg (27.0-33.0); MEAN CORPUSCULAR HGB CONC 33.7 g/dl (32.0-36.5); MEAN CORPUSCULAR VOLUME 89.9 fl (80.0-96.0); MONO # 0.6 10^3/uL (0.0-0.8); MONO % 6.1 % (2.0-8.0); NEUTROPHILS # 7.1 10^3/uL (1.5-8.5); NEUTROPHILS % 79.8 % (36.0-66.0); PLATELET COUNT, AUTOMATED 219 10^3/uL (150-450); RED BLOOD COUNT 4.95 10^6/uL (4.00-5.40)
[2023-06-03 16:38] LABS: AMPHETAMINES LEVEL URINE NEGATIVE (NEGATIVE); BARBITURATES URINE NEGATIVE (NEGATIVE); CANNABINOIDS URINE NEGATIVE (NEGATIVE); COCAINE METABOLITE URINE NEGATIVE (NEGATIVE); METHADONE URINE NEGATIVE (NEGATIVE); OPIATES URINE NEGATIVE (NEGATIVE); PHENCYCLIDINE URINE NEGATIVE (NEGATIVE)
[2023-06-03 16:48] LABS: ETHYL ALCOHOL (ETHANOL) < 0.003 % (0.000-0.010); SALICYLATE LEVEL < 3.0 MG/DL (<30)
[2023-06-03 16:49] LABS: ALBUMIN 3.6 G/DL (3.2-5.2); ALKALINE PHOSPHATASE 64 U/L (46-116); ALT/SGPT 56 U/L (7.0-40); AST/SGOT 36 U/L (<34); BILIRUBIN,DIRECT 0.8 MG/DL (<0.4); BILIRUBIN,TOTAL 2.4 MG/DL (0.3-1.2); BLOOD UREA NITROGEN 14 MG/DL (9-23); CALCIUM LEVEL 10.3 MG/DL (8.5-10.1); CARBON DIOXIDE LEVEL 27 MMOL/L (20-31); CHLORIDE LEVEL 104 MMOL/L (98-107); CREATININE FOR GFR 0.67 MG/DL (0.55-1.30); GLOMERULAR FILTRATION RATE > 60.0 (>60); GLUCOSE, FASTING 96 MG/DL (60-100); POTASSIUM SERUM 3.1 MMOL/L (3.5-5.1); SODIUM LEVEL 141 MMOL/L (136-145); TOTAL PROTEIN 6.6 G/DL (5.7-8.2)
[2023-06-03 16:51] LABS: THYROID STIMULATING HORMONE 2.412 uIU/ML (0.55-4.78)
[2023-06-03] MEDS ORDERED: POTASSIUM CHLORIDE 10% LIQ 20MEQ/15ML UDC PO ONE (16:55)
[2023-06-03 16:56] LABS: BENZODIAZEPINES URINE POSITIVE (NEGATIVE)
[2023-06-03 17:01] LABS: HCG, SERUM QUALITATIVE NEGATIVE (NEGATIVE)
[2023-06-03] MEDS ORDERED: OMEP90SU PO (17:37)
[2023-06-03 20:20] VITALS: BP 122/74; TEMP 98.9; O2SAT 99
== END 2023-06-03 20:29 | disposition home or self-care (01) ==
LOC: M ED 13:57
DX: F41.9 Anxiety disorder, unspecified (principal); J45.909 Unspecified asthma, uncomplicated; K21.9 Gastro-esophageal reflux disease without esophagitis; Z87.442 Personal history of urinary calculi; Z87.891 Personal history of nicotine dependence; Z91.040 Latex allergy status

== ENCOUNTER 2023-06-06 10:05 | Emergency (ER) | payer OTHER ==
[~2023-06-06] VITALS: Ht 162.6 cm; Wt 44.3 kg
[2023-06-06] MEDS ORDERED: LORazepam 0.5 MG TAB PO STA (13:07)
[2023-06-06 16:54] LABS: BASO % 0.7 % (0.0-1.0); HEMATOCRIT 48.5 % (36.0-47.0); HEMOGLOBIN 16.5 g/dl (12.0-15.5); LYMPH # 1.4 10^3/uL (1.5-5.0); LYMPH % 24.7 % (24.0-44.0); MEAN CORPUSCULAR HEMOGLOBIN 30.1 pg (27.0-33.0); MEAN CORPUSCULAR VOLUME 88.3 fl (80.0-96.0); MONO # 0.3 10^3/uL (0.0-0.8); MONO % 5.4 % (2.0-8.0); NEUTROPHILS # 3.8 10^3/uL (1.5-8.5); NEUTROPHILS % 68.7 % (36.0-66.0); PLATELET COUNT, AUTOMATED 302 10^3/uL (150-450); RED BLOOD COUNT 5.49 10^6/uL (4.00-5.40); WHITE BLOOD COUNT 5.6 10^3/uL (4.0-10.0)
[2023-06-06 17:12] LABS: ALBUMIN 3.7 G/DL (3.2-5.2); ALKALINE PHOSPHATASE 83 U/L (46-116); ALT/SGPT 40 U/L (7.0-40); AST/SGOT 27 U/L (<34); BILIRUBIN,TOTAL 1.6 MG/DL (0.3-1.2); BLOOD UREA NITROGEN 16 MG/DL (9-23); CALCIUM LEVEL 10.3 MG/DL (8.5-10.1); CARBON DIOXIDE LEVEL 23 MMOL/L (20-31); CHLORIDE LEVEL 101 MMOL/L (98-107); CREATININE FOR GFR 0.55 MG/DL (0.55-1.30); GLOMERULAR FILTRATION RATE > 60.0 (>60); GLUCOSE, FASTING 81 MG/DL (60-100); POTASSIUM SERUM 3.4 MMOL/L (3.5-5.1); SODIUM LEVEL 137 MMOL/L (136-145)
[2023-06-06] MEDS ORDERED: ALPR1CON PO ×2 (17:45→17:49)
[2023-06-06] MEDS ORDERED: SULF20OR PO (17:55)
[2023-06-06 18:04] VITALS: BP 119/84; TEMP 98; O2SAT 100
== END 2023-06-06 18:35 | disposition home or self-care (01) ==
LOC: M ED 10:05
DX: Z93.1 Gastrostomy status (principal); K66.8 Other specified disorders of peritoneum; N39.0 Urinary tract infection, site not specified; Z91.040 Latex allergy status; Z79.51 Long term (current) use of inhaled steroids; Z79.899 Other long term (current) drug therapy

== ENCOUNTER 2023-06-16 16:25 | Emergency (ER) | payer OTHER ==
[~2023-06-16] VITALS: Ht 162.6 cm; Wt 42.3 kg
[~2023-06-16 16:25] MED LIST changes: +SULF20OR PO; +TRIA2LOT TOP
[2023-06-16] MEDS ORDERED: BOOSLIQ77 (16:41)
[2023-06-16] MEDS ORDERED: NYST-13 (16:41)
[2023-06-16 18:35] VITALS: BP 121/59; TEMP 97; O2SAT 99
== END 2023-06-16 18:36 | disposition home or self-care (01) ==
LOC: M ED 16:25
DX: J02.9 Acute pharyngitis, unspecified (principal); K94.23 Gastrostomy malfunction; J45.909 Unspecified asthma, uncomplicated; Z11.52 Encounter for screening for COVID-19; R56.9 Unspecified convulsions; K21.9 Gastro-esophageal reflux disease without esophagitis; F41.9 Anxiety disorder, unspecified

== ENCOUNTER 2023-06-18 10:43 | Emergency (ER) | payer OTHER ==
[~2023-06-18] VITALS: Ht 162.6 cm; Wt 43.3 kg
[~2023-06-18 10:43] MED LIST changes: +BOOSLIQ77; +NYST-13
[2023-06-18] MEDS ORDERED: MIRA3350 GT (12:41)
[2023-06-18 12:59] VITALS: BP 110/72; TEMP 99.4; O2SAT 100
== END 2023-06-18 12:52 | disposition home or self-care (01) ==
LOC: M ED 10:43
DX: K59.00 Constipation, unspecified (principal); F41.9 Anxiety disorder, unspecified; Z91.040 Latex allergy status

== ENCOUNTER 2023-06-21 13:08 | Outpatient (RCR) | payer OTHER | END 2023-06-24 | LOC: M ST 13:08 | PROVIDERS: ATTEND Nurse Practitioner Family | DX: R13.10 Dysphagia, unspecified (principal) ==

== ENCOUNTER → 2023-06-21 | Outpatient (CLI) | payer OTHER ==
[~2023-06-21] MED LIST changes: +MIRA3350 GT
[2023-06-21 13:12] LABS: IONIZED CALCIUM 5.3 MG/DL (4.5-5.3)
[2023-06-21 14:06] LABS: PTH INTACT 53.9 PG/ML (18.5-88.0)
[2023-06-21 14:14] LABS: CREATININE, URINE 267.9 MG/DL
[2023-06-21 19:48] LABS: BACTERIA, URINE NONE SEEN; RBC, URINE NONE SEEN /hpf (0-3); SQUAMOUS EPITHELIAL CELL URINE SMALL AMOUNT /hpf (SMALL AMT); WBC, URINE 0-1 /hpf (0-3)
[2023-06-21 19:49] LABS: HYALINE CAST, URINE NONE SEEN /lpf (0-1)
== END ==
LOC: M LAB 11:54
PROVIDERS: ATTEND Nurse Practitioner Family
DX: E83.51 Hypocalcemia (principal); E87.6 Hypokalemia; R82.89 Other abnormal findings on cytological and histological examination of urine

== ENCOUNTER 2023-06-23 18:14 | Emergency (ER) | payer OTHER ==
[~2023-06-23] VITALS: Ht 162.6 cm; Wt 43.7 kg
[2023-06-23 18:15] VITALS: BP 104/64; TEMP 98.5; O2SAT 99
[2023-06-23] MEDS ORDERED: PANTOPRAZOLE 40MG VIAL IV ONE (22:10)
[2023-06-23] MEDS ORDERED: LORazepam 2 MG/ML 1ML VIAL IV STA (23:12)
[2023-06-24 00:08] LABS: LIPASE 46 U/L (12-53)
[2023-06-24 00:10] LABS: ALBUMIN 4.4 G/DL (3.2-5.2); ALKALINE PHOSPHATASE 50 U/L (46-116); ALT/SGPT 53 U/L (7.0-40); AST/SGOT 34 U/L (<34); BILIRUBIN,DIRECT 0.2 MG/DL (<0.4); BILIRUBIN,TOTAL 0.7 MG/DL (0.3-1.2); BLOOD UREA NITROGEN 10 MG/DL (9-23); CARBON DIOXIDE LEVEL 29 MMOL/L (20-31); CHLORIDE LEVEL 103 MMOL/L (98-107); CREATININE FOR GFR 0.46 MG/DL (0.55-1.30); GLOMERULAR FILTRATION RATE > 60.0 (>60); GLUCOSE, FASTING 92 MG/DL (60-100); POTASSIUM SERUM 3.7 MMOL/L (3.5-5.1); SODIUM LEVEL 139 MMOL/L (136-145); TOTAL PROTEIN 7.7 G/DL (5.7-8.2)
[2023-06-24 00:12] LABS: FREE T4 0.82 NG/DL (0.89-1.76)
[2023-06-24 00:17] LABS: BASO % 0.3 % (0.0-1.0); EOS % 0.5 % (0.0-3.0); HEMATOCRIT 42.8 % (36.0-47.0); HEMOGLOBIN 14.4 g/dl (12.0-15.5); LYMPH # 2.9 10^3/uL (1.5-5.0); LYMPH % 48.4 % (24.0-44.0); MEAN CORPUSCULAR HEMOGLOBIN 30.9 pg (27.0-33.0); MEAN CORPUSCULAR HGB CONC 33.6 g/dl (32.0-36.5); MEAN CORPUSCULAR VOLUME 91.8 fl (80.0-96.0); MONO # 0.3 10^3/uL (0.0-0.8); MONO % 5.3 % (2.0-8.0); NEUTROPHILS # 2.6 10^3/uL (1.5-8.5); NEUTROPHILS % 44.7 % (36.0-66.0); PLATELET COUNT, AUTOMATED 341 10^3/uL (150-450); RED BLOOD COUNT 4.66 10^6/uL (4.00-5.40); WHITE BLOOD COUNT 5.9 10^3/uL (4.0-10.0)
[2023-06-24 00:52] LABS: THYROID STIMULATING HORMONE 3.597 uIU/ML (0.55-4.78)
== END 2023-06-24 01:25 | disposition home or self-care (01) ==
LOC: M ED 18:14
DX: R07.9 Chest pain, unspecified (principal); K21.9 Gastro-esophageal reflux disease without esophagitis; Z91.040 Latex allergy status
CPT/HCPCS: 71046; 80048; 80076; 83690; 84439; 84443; 85025; 85379; 93005; 93041; 94760; 96374; 96375; 99284; C9113; J2060

== ENCOUNTER 2023-06-27 21:02 | Emergency (ER) | payer OTHER ==
[~2023-06-27] VITALS: Ht 162.6 cm; Wt 45.8 kg
[~2023-06-27 21:02] MED LIST changes: +TOPI-21 PO; -TOPI-254 PO
[2023-06-28 00:02] VITALS: BP 101/69; TEMP 98.9; O2SAT 100
== END 2023-06-28 00:05 | disposition home or self-care (01) ==
LOC: M ED 21:02
DX: R13.10 Dysphagia, unspecified (principal); R09.A2 Foreign body sensation, throat; F41.9 Anxiety disorder, unspecified; Z93.1 Gastrostomy status; Z79.899 Other long term (current) drug therapy; Z91.040 Latex allergy status

== ENCOUNTER 2023-07-07 11:29 | Emergency (ER) | payer OTHER ==
[~2023-07-07] VITALS: Ht 162.6 cm; Wt 45.5 kg
[2023-07-07] MEDS ORDERED: ESCI5SOL3 (11:46)
[2023-07-07] MEDS ORDERED: PHEN240L PO (11:46)
[2023-07-07] MEDS ORDERED: TRAZ-252 (11:46)
[2023-07-07] MEDS ORDERED: NS 1,000 ML IV ONE (12:15)
[2023-07-07 12:20] LABS: BASO % 0.4 % (0.0-1.0); HEMATOCRIT 37.4 % (36.0-47.0); HEMOGLOBIN 12.3 g/dl (12.0-15.5); LYMPH # 0.9 10^3/uL (1.5-5.0); LYMPH % 17.5 % (24.0-44.0); MEAN CORPUSCULAR HGB CONC 32.9 g/dl (32.0-36.5); MEAN CORPUSCULAR VOLUME 97.4 fl (80.0-96.0); MONO # 0.2 10^3/uL (0.0-0.8); MONO % 4.2 % (2.0-8.0); NEUTROPHILS # 3.8 10^3/uL (1.5-8.5); NEUTROPHILS % 77.5 % (36.0-66.0); PLATELET COUNT, AUTOMATED 250 10^3/uL (150-450); RED BLOOD COUNT 3.84 10^6/uL (4.00-5.40)
[2023-07-07 12:40] LABS: LIPASE 28 U/L (12-53)
[2023-07-07 12:42] LABS: ALBUMIN 3.5 G/DL (3.2-5.2); ALKALINE PHOSPHATASE 33 U/L (46-116); ALT/SGPT 24 U/L (7.0-40); AST/SGOT 24 U/L (<34); BILIRUBIN,DIRECT 0.1 MG/DL (<0.4); BILIRUBIN,TOTAL 0.5 MG/DL (0.3-1.2); BLOOD UREA NITROGEN 11 MG/DL (9-23); CALCIUM LEVEL 9.8 MG/DL (8.5-10.1); CARBON DIOXIDE LEVEL 30 MMOL/L (20-31); CHLORIDE LEVEL 104 MMOL/L (98-107); CREATININE FOR GFR 0.45 MG/DL (0.55-1.30); GLOMERULAR FILTRATION RATE > 60.0 (>60); GLUCOSE, FASTING 122 MG/DL (60-100); POTASSIUM SERUM 4.2 MMOL/L (3.5-5.1); SODIUM LEVEL 139 MMOL/L (136-145)
[2023-07-07 12:44] LABS: HCG, SERUM QUALITATIVE NEGATIVE (NEGATIVE)
[2023-07-07] MEDS: GASTROGRAFIN SOLUTION 30ML PO SCH ×2 (13:27→14:00)
[2023-07-07] MEDS ORDERED: LORazepam 2 MG/ML 1ML VIAL IV STA (13:34)
[2023-07-07] MEDS ORDERED: ISOVUE-370 76% 100ML VIAL As Ordered ONE (15:05)
[2023-07-07 16:55] VITALS: BP 108/61; TEMP 97.6; O2SAT 100
== END 2023-07-07 16:58 | disposition home or self-care (01) ==
LOC: M ED 11:29
DX: R10.9 Unspecified abdominal pain (principal); J45.909 Unspecified asthma, uncomplicated; K21.9 Gastro-esophageal reflux disease without esophagitis; F32.A Depression, unspecified; Z87.891 Personal history of nicotine dependence; Z91.040 Latex allergy status; Z79.52 Long term (current) use of systemic steroids; Z79.83 Long term (current) use of bisphosphonates; Z79.899 Other long term (current) drug therapy
CPT/HCPCS: 74177; 80048; 80076; 83605; 83690; 84703; 85025; 87040; 96361; 96374; 99285; J2060; Q9963; Q9967

== ENCOUNTER 2023-07-16 13:23 | Outpatient (RCR) | payer OTHER ==
[~2023-07-16 13:23] MED LIST changes: +ESCI5SOL3; +PHEN240L PO; +TRAZ-252
== END 2023-07-25 ==
LOC: M ST 13:23
PROVIDERS: ATTEND Nurse Practitioner Family
DX: R13.10 Dysphagia, unspecified (principal)

== ENCOUNTER 2023-07-31 13:21 | Emergency (ER) | payer OTHER ==
[~2023-07-31] VITALS: Ht 162.6 cm; Wt 45.7 kg
[2023-07-31] MEDS ORDERED: LORazepam 2 MG/ML 1ML VIAL IV STA (17:21)
[2023-07-31] MEDS ORDERED: ISOVUE-370 76% 100ML VIAL As Ordered ONE (18:40)
[2023-07-31 18:41] LABS: HEMATOCRIT 37.6 % (36.0-47.0); HEMOGLOBIN 12.6 g/dl (12.0-15.5); MEAN CORPUSCULAR HEMOGLOBIN 32.6 pg (27.0-33.0); MEAN CORPUSCULAR HGB CONC 33.5 g/dl (32.0-36.5); MEAN CORPUSCULAR VOLUME 97.4 fl (80.0-96.0); PLATELET COUNT, AUTOMATED 220 10^3/uL (150-450); RED BLOOD COUNT 3.86 10^6/uL (4.00-5.40); WHITE BLOOD COUNT 6.2 10^3/uL (4.0-10.0)
[2023-07-31 20:15] VITALS: BP 108/69; TEMP 97.4; O2SAT 100
== END 2023-07-31 20:16 | disposition home or self-care (01) ==
LOC: M ED 13:21
DX: Z71.1 Person with feared health complaint in whom no diagnosis is made (principal); J45.909 Unspecified asthma, uncomplicated; F41.9 Anxiety disorder, unspecified; K21.9 Gastro-esophageal reflux disease without esophagitis; Z93.1 Gastrostomy status; Z91.040 Latex allergy status; Z79.899 Other long term (current) drug therapy; Z79.51 Long term (current) use of inhaled steroids; Z79.83 Long term (current) use of bisphosphonates
CPT/HCPCS: 36415; 74177; 80047; 85027; 87486; 87581; 87633; 87798; 96374; 99284; J2060; Q9967

== ENCOUNTER 2023-08-12 16:08 | Emergency (ER) | payer OTHER ==
[~2023-08-12] VITALS: Ht 162.6 cm; Wt 46.2 kg
[~2023-08-12 16:08] MED LIST changes: -BOOSLIQ77 PO
[2023-08-12 18:23] LABS: BASO % 0.4 % (0.0-1.0); EOS % 0.4 % (0.0-3.0); HEMATOCRIT 42.2 % (36.0-47.0); HEMOGLOBIN 14.3 g/dl (12.0-15.5); LYMPH # 1.1 10^3/uL (1.5-5.0); MEAN CORPUSCULAR HEMOGLOBIN 32.5 pg (27.0-33.0); MEAN CORPUSCULAR HGB CONC 33.9 g/dl (32.0-36.5); MEAN CORPUSCULAR VOLUME 95.9 fl (80.0-96.0); MONO # 0.2 10^3/uL (0.0-0.8); MONO % 3.9 % (2.0-8.0); NEUTROPHILS # 4.2 10^3/uL (1.5-8.5); NEUTROPHILS % 75.1 % (36.0-66.0); PLATELET COUNT, AUTOMATED 224 10^3/uL (150-450); WHITE BLOOD COUNT 5.6 10^3/uL (4.0-10.0)
[2023-08-12 18:46] LABS: CPK CREATINE PHOSPHOKINASE 132 U/L (34-145); MB/CK RELATIVE INDEX 0.75 (< OR =4)
[2023-08-12 18:47] LABS: BLOOD UREA NITROGEN 16 MG/DL (9-23); CALCIUM LEVEL 10.5 MG/DL (8.5-10.1); CARBON DIOXIDE LEVEL 30 MMOL/L (20-31); CHLORIDE LEVEL 105 MMOL/L (98-107); CREATININE FOR GFR 0.49 MG/DL (0.55-1.30); GLOMERULAR FILTRATION RATE > 60.0 (>60); GLUCOSE, FASTING 106 MG/DL (60-100); POTASSIUM SERUM 3.7 MMOL/L (3.5-5.1); SODIUM LEVEL 139 MMOL/L (136-145)
[2023-08-12 18:55] LABS: HCG, SERUM QUALITATIVE NEGATIVE (NEGATIVE)
[2023-08-12 18:56] LABS: INR 1.01; PARTIAL THROMBOPLASTIN TIME 25.9 SECONDS (24.8-34.2)
[2023-08-12] MEDS ORDERED: LORazepam 2 MG/ML 1ML VIAL IV STA (20:09)
[2023-08-12] MEDS ORDERED: GASTROGRAFIN SOLUTION 30ML PO ONE (20:35)
[2023-08-12] MEDS ORDERED: ALPR1CON PO (21:49)
[2023-08-12] MEDS ORDERED: BOOSLIQ77 PO ×2 (21:49→21:55)
[2023-08-12 22:03] VITALS: BP 99/54; TEMP 97; O2SAT 100
== END 2023-08-12 22:26 | disposition home or self-care (01) ==
LOC: M ED 16:08
DX: R20.2 Paresthesia of skin (principal); F41.9 Anxiety disorder, unspecified; J45.909 Unspecified asthma, uncomplicated; K21.9 Gastro-esophageal reflux disease without esophagitis; R56.9 Unspecified convulsions; Z86.79 Personal history of other diseases of the circulatory system; Z93.1 Gastrostomy status; Z82.3 Family history of stroke; Z82.49 Family history of ischemic heart disease and other diseases of the circulatory system; Z79.899 Other long term (current) drug therapy; Z91.040 Latex allergy status
CPT/HCPCS: 70450; 71045; 74018; 80048; 82550; 82553; 84703; 85025; 85610; 85730; 93005; 96374; 99284; J2060; Q9963

== ENCOUNTER → 2023-08-12 | Outpatient (REF) | payer OTHER ==
[~2023-08-12] MED LIST changes: +BOOSLIQ77 PO
== END ==
LOC: M LAB REF 11:58
PROVIDERS: ATTEND Physician Assistant
DX: B34.9 Viral infection, unspecified (principal)

== ENCOUNTER 2023-08-23 11:15 | Outpatient (RCR) | payer OTHER ==
[~2023-08-23 11:15] MED LIST changes: +BOOSLIQ77 PO
[2023-08-24] MEDS ORDERED: AMOX400S2 GT (22:03)
== END 2023-08-25 ==
LOC: M ST 11:15
PROVIDERS: ATTEND Nurse Practitioner Family
DX: R13.10 Dysphagia, unspecified (principal)

== ENCOUNTER 2023-08-24 16:16 | Emergency (ER) | payer OTHER ==
[~2023-08-24] VITALS: Ht 162.6 cm; Wt 46.1 kg
[2023-08-24] MEDS ORDERED: AMOXICILLIN 400MG/5ML SUSP BTL 50ML (FOR INPATIENT ORDERS) GT ONE (22:00)
[2023-08-24] MEDS ORDERED: AMOX400S2 GT (22:03)
[2023-08-24 22:45] VITALS: BP 98/55; TEMP 97.5; O2SAT 100
== END 2023-08-24 22:48 | disposition home or self-care (01) ==
LOC: M ED 16:16
DX: H66.41 Suppurative otitis media, unspecified, right ear (principal); Z91.040 Latex allergy status; Z79.51 Long term (current) use of inhaled steroids; Z79.2 Long term (current) use of antibiotics; Z79.899 Other long term (current) drug therapy

== ENCOUNTER 2023-08-28 14:54 | Emergency (ER) | payer OTHER ==
[~2023-08-28] VITALS: Ht 162.6 cm; Wt 46.6 kg
[~2023-08-28 14:54] MED LIST changes: +AMOX400S2 GT
[2023-08-28 17:12] VITALS: BP 106/64; TEMP 97.5; O2SAT 98
== END 2023-08-28 17:15 | disposition home or self-care (01) ==
LOC: M ED 14:54
DX: R10.9 Unspecified abdominal pain (principal); Z93.1 Gastrostomy status; K21.9 Gastro-esophageal reflux disease without esophagitis; F41.9 Anxiety disorder, unspecified; J45.909 Unspecified asthma, uncomplicated; G40.89 Other seizures; Z79.899 Other long term (current) drug therapy; Z79.51 Long term (current) use of inhaled steroids; Z79.2 Long term (current) use of antibiotics

== ENCOUNTER 2023-09-06 17:05 | Emergency (ER) | payer OTHER ==
[~2023-09-06] VITALS: Ht 162.6 cm; Wt 46.8 kg
[2023-09-06 21:45] VITALS: TEMP 100.3
[2023-09-07] MEDS ORDERED: ACETAMINOPHEN TAB 650MG DOSE (2X325MG) PO ONE (00:45)
[2023-09-07] MEDS: ACETAMINOPHEN 325MG/10.15ML UDC PO ONE (01:43)
[2023-09-07 02:32] VITALS: BP 100/63; O2SAT 98
== END 2023-09-07 02:34 | disposition home or self-care (01) ==
LOC: M ED 17:05
DX: K94.20 Gastrostomy complication, unspecified (principal); U07.1 COVID-19; J45.909 Unspecified asthma, uncomplicated; G40.909 Epilepsy, unspecified, not intractable, without status epilepticus; F41.9 Anxiety disorder, unspecified; K21.9 Gastro-esophageal reflux disease without esophagitis; Z87.442 Personal history of urinary calculi; Z91.040 Latex allergy status; Z79.899 Other long term (current) drug therapy; Z79.51 Long term (current) use of inhaled steroids

== ENCOUNTER 2023-09-17 10:59 | Outpatient (RCR) | payer OTHER ==
[~2023-09-17 10:59] MED LIST changes: -POTA20EL; -POTA20EL PO; +POTA20LI16; +POTA20LI16 PO
== END 2023-09-23 ==
LOC: M ST 10:59
PROVIDERS: ATTEND Nurse Practitioner Family
DX: R13.10 Dysphagia, unspecified (principal)

== ENCOUNTER → 2023-09-21 | Outpatient (REF) | payer OTHER ==
[2023-09-21 14:26] LABS: BASO % 0.2 % (0.0-1.0); EOS % 0.4 % (0.0-3.0); HEMATOCRIT 40.8 % (36.0-47.0); HEMOGLOBIN 13.7 g/dl (12.0-15.5); LYMPH # 1.4 10^3/uL (1.5-5.0); LYMPH % 24.7 % (24.0-44.0); MEAN CORPUSCULAR HEMOGLOBIN 33.3 pg (27.0-33.0); MEAN CORPUSCULAR HGB CONC 33.6 g/dl (32.0-36.5); MONO # 0.3 10^3/uL (0.0-0.8); MONO % 5.8 % (2.0-8.0); NEUTROPHILS # 3.8 10^3/uL (1.5-8.5); NEUTROPHILS % 68.5 % (36.0-66.0); PLATELET COUNT, AUTOMATED 241 10^3/uL (150-450); RED BLOOD COUNT 4.12 10^6/uL (4.00-5.40); WHITE BLOOD COUNT 5.5 10^3/uL (4.0-10.0)
[2023-09-21 14:32] LABS: BLOOD UREA NITROGEN 23 MG/DL (9-23); CALCIUM LEVEL 10.7 MG/DL (8.5-10.1); CARBON DIOXIDE LEVEL 33 MMOL/L (20-31); CHLORIDE LEVEL 106 MMOL/L (98-107); CREATININE FOR GFR 0.57 MG/DL (0.55-1.30); GLOMERULAR FILTRATION RATE > 60.0 (>60); GLUCOSE, FASTING 108 MG/DL (60-100); MAGNESIUM LEVEL 2.5 MG/DL (1.8-2.4); POTASSIUM SERUM 4.2 MMOL/L (3.5-5.1); SODIUM LEVEL 142 MMOL/L (136-145)
[2023-09-21 14:33] LABS: IRON (FE) 43 UG/DL (50-170)
[2023-09-21 14:34] LABS: PERCENT SATURATION 13.1 % (13.2-45.0); TOTAL IRON BINDING CAPACITY 328 UG/DL (250-425)
[2023-09-21 14:38] LABS: THYROID STIMULATING HORMONE 2.657 uIU/ML (0.55-4.78)
[2023-09-21 14:44] LABS: VITAMIN B12 LEVEL 851 PG/ML (211-911)
[2023-09-21 14:49] LABS: FOLATE > 24.00 NG/ML (>5.4)
== END ==
LOC: M LAB REF 12:33
PROVIDERS: ATTEND Nurse Practitioner Family
DX: R63.8 Other symptoms and signs concerning food and fluid intake (principal)

== ENCOUNTER 2023-10-15 11:12 | Outpatient (RCR) | payer OTHER | END 2023-10-24 | LOC: M ST 11:12 | PROVIDERS: ATTEND Nurse Practitioner Family | DX: R13.10 Dysphagia, unspecified (principal) ==

== ENCOUNTER → 2023-11-08 | Outpatient (CLI) | payer OTHER ==
[2023-11-08 12:02] LABS: BLOOD UREA NITROGEN 20 MG/DL (9-23); CALCIUM LEVEL 10.4 MG/DL (8.5-10.1); CARBON DIOXIDE LEVEL 31 MMOL/L (20-31); CHLORIDE LEVEL 106 MMOL/L (98-107); CREATININE FOR GFR 0.57 MG/DL (0.55-1.30); GLOMERULAR FILTRATION RATE > 60.0 (>60); GLUCOSE, FASTING 77 MG/DL (60-100); MAGNESIUM LEVEL 2.2 MG/DL (1.8-2.4); POTASSIUM SERUM 4.5 MMOL/L (3.5-5.1); SODIUM LEVEL 140 MMOL/L (136-145)
[2023-11-08 12:04] LABS: THYROID STIMULATING HORMONE 2.541 uIU/ML (0.55-4.78); TOTAL 25(OH) VITAMIN D 44.6 NG/ML (20.0-100.0)
== END ==
LOC: M LAB 10:29
PROVIDERS: ATTEND Nurse Practitioner Family
DX: R63.8 Other symptoms and signs concerning food and fluid intake (principal); F41.8 Other specified anxiety disorders; E46 Unspecified protein-calorie malnutrition; E83.52 Hypercalcemia; R63.4 Abnormal weight loss

== ENCOUNTER 2023-11-11 11:10 | Outpatient (RCR) | payer OTHER ==
[~2023-11-11 11:10] MED LIST changes: -PROZ20CA11 PO
[2023-11-13] MEDS ORDERED: PROZ20CA11 PO (14:35)
== END 2023-11-23 ==
LOC: M ST 11:10
PROVIDERS: ATTEND Nurse Practitioner Family
DX: R13.10 Dysphagia, unspecified (principal)

== ENCOUNTER → 2023-11-11 | Outpatient (REF) | payer OTHER ==
[~2023-11-11] MED LIST changes: +PROZ20CA11 PO
== END ==
LOC: M LAB REF 10:21
PROVIDERS: ATTEND Nurse Practitioner Family
DX: R63.8 Other symptoms and signs concerning food and fluid intake (principal); F41.8 Other specified anxiety disorders; E46 Unspecified protein-calorie malnutrition

== ENCOUNTER 2023-11-13 14:11 | Emergency (ER) | payer OTHER ==
[~2023-11-13] VITALS: Ht 162.6 cm; Wt 47.6 kg
[2023-11-13] MEDS ORDERED: PROZ20CA11 PO (14:35)
[2023-11-13 15:39] LABS: BASO % 0.5 % (0.0-1.0); EOS # 0.1 10^3/uL (0.0-0.5); EOS % 2.3 % (0.0-3.0); HEMATOCRIT 38.4 % (36.0-47.0); HEMOGLOBIN 13.1 g/dl (12.0-15.5); LYMPH # 1.2 10^3/uL (1.5-5.0); LYMPH % 21.7 % (24.0-44.0); MEAN CORPUSCULAR HEMOGLOBIN 32.9 pg (27.0-33.0); MEAN CORPUSCULAR HGB CONC 34.1 g/dl (32.0-36.5); MEAN CORPUSCULAR VOLUME 96.5 fl (80.0-96.0); MONO # 0.3 10^3/uL (0.0-0.8); MONO % 5.2 % (2.0-8.0); NEUTROPHILS # 3.9 10^3/uL (1.5-8.5); NEUTROPHILS % 69.9 % (36.0-66.0); PLATELET COUNT, AUTOMATED 204 10^3/uL (150-450); RED BLOOD COUNT 3.98 10^6/uL (4.00-5.40); WHITE BLOOD COUNT 5.6 10^3/uL (4.0-10.0)
[2023-11-13 16:12] LABS: ALBUMIN 3.8 G/DL (3.2-5.2); ALKALINE PHOSPHATASE 55 U/L (46-116); ALT/SGPT 46 U/L (7.0-40); AST/SGOT 24 U/L (<34); BILIRUBIN,TOTAL 0.3 MG/DL (0.3-1.2); BLOOD UREA NITROGEN 21 MG/DL (9-23); CALCIUM LEVEL 10.5 MG/DL (8.5-10.1); CARBON DIOXIDE LEVEL 29 MMOL/L (20-31); CHLORIDE LEVEL 103 MMOL/L (98-107); CREATININE FOR GFR 0.52 MG/DL (0.55-1.30); GLOMERULAR FILTRATION RATE > 60.0 (>60); GLUCOSE, FASTING 106 MG/DL (60-100); POTASSIUM SERUM 4.2 MMOL/L (3.5-5.1); SODIUM LEVEL 138 MMOL/L (136-145); TOTAL PROTEIN 6.6 G/DL (5.7-8.2)
[2023-11-13 17:11] LABS: CK-MB VALUE MASS < 1.0 NG/ML (<3.6)
[2023-11-13 17:13] LABS: CPK CREATINE PHOSPHOKINASE 43 U/L (34-145); MB/CK RELATIVE INDEX 2.32 (< OR =4)
[2023-11-13 17:24] VITALS: BP 99/55; TEMP 96.5; O2SAT 100
== END 2023-11-13 17:26 | disposition home or self-care (01) ==
LOC: M ED 14:11
DX: R53.81 Other malaise (principal); R53.83 Other fatigue; Z93.1 Gastrostomy status; R51.9 Headache, unspecified; R56.9 Unspecified convulsions; Z86.79 Personal history of other diseases of the circulatory system; R07.9 Chest pain, unspecified; J45.909 Unspecified asthma, uncomplicated; K21.9 Gastro-esophageal reflux disease without esophagitis; F41.9 Anxiety disorder, unspecified; F32.A Depression, unspecified; Z79.899 Other long term (current) drug therapy; Z91.040 Latex allergy status

== ENCOUNTER 2023-11-22 19:47 | Emergency (ER) | payer OTHER ==
[~2023-11-22] VITALS: Ht 162.6 cm; Wt 47.8 kg
[2023-11-22 19:47] VITALS: BP 101/59; TEMP 97.8; O2SAT 100
[~2023-11-22 19:47] MED LIST changes: +PROZ20CA11 PO
== END 2023-11-22 22:58 | disposition home or self-care (01) ==
LOC: M ED 19:47
DX: Z43.1 Encounter for attention to gastrostomy (principal); J45.909 Unspecified asthma, uncomplicated; G43.909 Migraine, unspecified, not intractable, without status migrainosus; Z91.040 Latex allergy status; Z79.52 Long term (current) use of systemic steroids; Z79.83 Long term (current) use of bisphosphonates; Z79.810 Long term (current) use of selective estrogen receptor modulators (SERMs); Z79.899 Other long term (current) drug therapy

== ENCOUNTER → 2023-11-30 | Outpatient (CLI) | payer OTHER ==
[~2023-11-30] MED LIST changes: +BARIUM SULFATE 700 MG TABLET (E-Z-DISK) As Ordered ONE; +E-Z-PAQUE 96% w/w SUSP 176GM BTL As Ordered ONE; +VARIBAR NECTAR 40% w/v 240ML SUSP BTL As Ordered ONE; +VARIBAR PUDDING 40% w/v 230ML TUBE As Ordered ONE
== END ==
LOC: M RAD 10:56
PROVIDERS: ATTEND Nurse Practitioner Family
DX: F45.8 Other somatoform disorders (principal)

== ENCOUNTER 2023-12-01 10:20 | Emergency (ER) | payer OTHER ==
[~2023-12-01] VITALS: Ht 162.6 cm; Wt 47.0 kg
[~2023-12-01 10:20] MED LIST changes: -BARIUM SULFATE 700 MG TABLET (E-Z-DISK) As Ordered ONE; -E-Z-PAQUE 96% w/w SUSP 176GM BTL As Ordered ONE; -VARIBAR NECTAR 40% w/v 240ML SUSP BTL As Ordered ONE; -VARIBAR PUDDING 40% w/v 230ML TUBE As Ordered ONE
[2023-12-01 13:04] VITALS: BP 106/55; TEMP 97.1; O2SAT 99
== END 2023-12-01 13:06 | disposition home or self-care (01) ==
LOC: M ED 10:20
DX: Z43.1 Encounter for attention to gastrostomy (principal); J45.909 Unspecified asthma, uncomplicated; K21.9 Gastro-esophageal reflux disease without esophagitis; F41.9 Anxiety disorder, unspecified; F32.A Depression, unspecified; G40.909 Epilepsy, unspecified, not intractable, without status epilepticus; Z91.040 Latex allergy status; Z79.52 Long term (current) use of systemic steroids; Z79.810 Long term (current) use of selective estrogen receptor modulators (SERMs); Z79.899 Other long term (current) drug therapy

== ENCOUNTER 2023-12-11 19:01 | Emergency (ER) | payer OTHER ==
[~2023-12-11] VITALS: Ht 162.6 cm; Wt 47.3 kg
[2023-12-11 20:49] VITALS: BP 92/54; TEMP 98.9; O2SAT 100
== END 2023-12-11 21:41 | disposition home or self-care (01) ==
LOC: M ED 19:01
DX: Z43.1 Encounter for attention to gastrostomy (principal); R56.9 Unspecified convulsions; J45.909 Unspecified asthma, uncomplicated; F41.9 Anxiety disorder, unspecified; Z79.899 Other long term (current) drug therapy; Z91.040 Latex allergy status

== ENCOUNTER 2023-12-20 19:40 | Emergency (ER) | payer OTHER ==
[~2023-12-20] VITALS: Ht 162.6 cm; Wt 47.2 kg
[2023-12-20] MEDS ORDERED: CLAR5TAB11 PO (22:21)
[2023-12-20 22:28] VITALS: BP 105/53; TEMP 97.3; O2SAT 98
== END 2023-12-20 22:30 | disposition home or self-care (01) ==
LOC: M ED 19:40
DX: J02.9 Acute pharyngitis, unspecified (principal); K94.23 Gastrostomy malfunction; K21.9 Gastro-esophageal reflux disease without esophagitis; G40.909 Epilepsy, unspecified, not intractable, without status epilepticus; F41.9 Anxiety disorder, unspecified; Z91.040 Latex allergy status

== ENCOUNTER 2024-01-01 15:34 | Emergency (ER) | payer OTHER ==
[~2024-01-01] VITALS: Ht 162.6 cm; Wt 47.3 kg
[~2024-01-01 15:34] MED LIST changes: +CLAR5TAB11 PO; +ONDA-282 PO; -ONDA4TAB6 PO
[2024-01-01 16:09] LABS: APPEARANCE, URINE CLEAR (CLEAR); BACTERIA, URINE AUTO NEGATIVE (NEGATIVE); BILIRUBIN, URINE AUTO NEGATIVE (NEGATIVE); BLOOD, URINE BLOOD NEGATIVE (NEGATIVE); COLOR, URINE STRAW (YELLOW); GLUCOSE, URINE (UA) AUTO NEGATIVE (NEGATIVE); KETONE, URINE AUTO NEGATIVE (NEGATIVE); LEUKOCYTE ESTERASE, URINE AUTO NEGATIVE (NEGATIVE); NITRITE, URINE AUTO NEGATIVE (NEGATIVE); PROTEIN, URINE AUTO NEGATIVE (NEGATIVE); RBC, URINE AUTO 0 /HPF (0-3); SPECIFIC GRAVITY URINE AUTO 1.006 (1.002-1.035); SQUAMOUS EPITHELIAL CELL UR AU 0 /HPF (0-6); UROBILINOGEN, URINE AUTO 0.2 mg/dL (0.0-2.0); WBC, URINE AUTO 0 /HPF (0-3)
[2024-01-01] MEDS ORDERED: AMOX400S2 PO (17:45)
[2024-01-01 18:41] VITALS: BP 107/67; TEMP 98.1; O2SAT 99
== END 2024-01-01 18:43 | disposition home or self-care (01) ==
LOC: M ED 15:34
DX: J06.9 Acute upper respiratory infection, unspecified (principal); J12.2 Parainfluenza virus pneumonia; Z91.040 Latex allergy status; Z79.1 Long term (current) use of non-steroidal anti-inflammatories (NSAID); Z79.2 Long term (current) use of antibiotics; Z79.899 Other long term (current) drug therapy

== ENCOUNTER 2024-01-11 10:07 | Outpatient (RCR) | payer OTHER ==
[~2024-01-11 10:07] MED LIST changes: +AMOX400S2 PO
== END 2024-01-23 ==
LOC: M ST 10:07
PROVIDERS: ATTEND Nurse Practitioner Family
DX: R13.10 Dysphagia, unspecified (principal)

== ENCOUNTER 2024-01-17 17:42 | Emergency (ER) | payer OTHER ==
[~2024-01-17] VITALS: Ht 162.6 cm; Wt 46.3 kg
[2024-01-17 17:44] VITALS: BP 99/55; TEMP 97.3; O2SAT 100
== END 2024-01-17 18:45 | disposition left against medical advice (07) ==
LOC: M ED 17:42
DX: Z53.21 Procedure and treatment not carried out due to patient leaving prior to being seen by health care provider (principal)

== ENCOUNTER 2024-02-14 14:44 | Emergency (ER) | payer OTHER ==
[~2024-02-14] VITALS: Ht 162.6 cm; Wt 46.4 kg
[2024-02-14 18:42] VITALS: BP 109/63; TEMP 98.2; O2SAT 97
== END 2024-02-14 18:43 | disposition home or self-care (01) ==
LOC: M ED 14:44
DX: Z43.1 Encounter for attention to gastrostomy (principal); G40.909 Epilepsy, unspecified, not intractable, without status epilepticus; J45.909 Unspecified asthma, uncomplicated; K21.9 Gastro-esophageal reflux disease without esophagitis; Z91.040 Latex allergy status; Z79.51 Long term (current) use of inhaled steroids; Z79.2 Long term (current) use of antibiotics

== ENCOUNTER 2024-05-13 14:04 | Emergency (ER) | payer OTHER ==
[~2024-05-13] VITALS: Ht 162.6 cm; Wt 46.6 kg
[2024-05-13 19:05] VITALS: BP 93/46; TEMP 96.6; O2SAT 98
== END 2024-05-13 19:17 | disposition home or self-care (01) ==
LOC: M ED 14:04
DX: J01.90 Acute sinusitis, unspecified (principal); E87.6 Hypokalemia; F41.9 Anxiety disorder, unspecified; F32.A Depression, unspecified; Z91.040 Latex allergy status; Z79.2 Long term (current) use of antibiotics; Z79.899 Other long term (current) drug therapy

== ENCOUNTER → 2024-06-02 | Outpatient (REF) | payer OTHER ==
[2024-06-02 17:49] LABS: BLOOD UREA NITROGEN 15 MG/DL (9-23); CALCIUM LEVEL 11.2 MG/DL (8.5-10.1); CARBON DIOXIDE LEVEL 29 MMOL/L (20-31); CHLORIDE LEVEL 107 MMOL/L (98-107); CREATININE FOR GFR 0.52 MG/DL (0.55-1.30); GLOMERULAR FILTRATION RATE > 60.0 (>60); GLUCOSE, FASTING 89 MG/DL (60-100); IRON (FE) 74 UG/DL (50-170); PERCENT SATURATION 23.9 % (13.2-45.0); POTASSIUM SERUM 4.5 MMOL/L (3.5-5.1); SODIUM LEVEL 140 MMOL/L (136-145); TOTAL IRON BINDING CAPACITY 310 UG/DL (250-425)
== END ==
LOC: M LAB REF 16:24
PROVIDERS: ATTEND Nurse Practitioner Family
DX: E61.1 Iron deficiency (principal); E87.6 Hypokalemia

== ENCOUNTER 2024-07-23 15:22 | Emergency (ER) | payer OTHER ==
[~2024-07-23] VITALS: Ht 157.5 cm; Wt 49.6 kg
[2024-07-23] MEDS ORDERED: PEPC1TAB5 PO (17:54)
[2024-07-23 18:03] VITALS: BP 110/63; TEMP 97.8; O2SAT 98
== END 2024-07-23 18:05 | disposition home or self-care (01) ==
LOC: M ED 15:22
DX: K21.9 Gastro-esophageal reflux disease without esophagitis (principal); Z71.6 Tobacco abuse counseling; G40.909 Epilepsy, unspecified, not intractable, without status epilepticus; J45.909 Unspecified asthma, uncomplicated; Z91.040 Latex allergy status; Z79.2 Long term (current) use of antibiotics; Z79.899 Other long term (current) drug therapy

== ENCOUNTER 2024-08-02 17:33 | Emergency (ER) | payer OTHER ==
[~2024-08-02] VITALS: Ht 157.5 cm; Wt 50.0 kg
[~2024-08-02 17:33] MED LIST changes: +PEPC1TAB5 PO
[2024-08-03 06:45] VITALS: BP 97/55; TEMP 96.3; O2SAT 99
== END 2024-08-03 06:42 | disposition home or self-care (01) ==
LOC: M ED 17:33
DX: K59.00 Constipation, unspecified (principal); F41.9 Anxiety disorder, unspecified; Z91.040 Latex allergy status; Z79.899 Other long term (current) drug therapy

== ENCOUNTER 2024-10-18 20:50 | Emergency (ER) | payer OTHER ==
[~2024-10-18] VITALS: Ht 157.5 cm; Wt 51.0 kg
[2024-10-19 00:58] LABS: BASO % 0.6 % (0.0-1.0); EOS # 0.1 10^3/uL (0.0-0.5); EOS % 1.7 % (0.0-3.0); HEMATOCRIT 41.2 % (36.0-47.0); HEMOGLOBIN 14.2 g/dl (12.0-15.5); LYMPH # 2.1 10^3/uL (1.5-5.0); LYMPH % 32.6 % (24.0-44.0); MEAN CORPUSCULAR HEMOGLOBIN 31.5 pg (27.0-33.0); MEAN CORPUSCULAR HGB CONC 34.5 g/dl (32.0-36.5); MEAN CORPUSCULAR VOLUME 91.4 fl (80.0-96.0); MONO # 0.4 10^3/uL (0.0-0.8); MONO % 6.6 % (2.0-8.0); NEUTROPHILS # 3.7 10^3/uL (1.5-8.5); NEUTROPHILS % 58.2 % (36.0-66.0); PLATELET COUNT, AUTOMATED 227 10^3/uL (150-450); RED BLOOD COUNT 4.51 10^6/uL (4.00-5.40); WHITE BLOOD COUNT 6.4 10^3/uL (4.0-10.0)
[2024-10-19 01:27] LABS: LIPASE 31 U/L (12-53)
[2024-10-19 01:29] LABS: ALBUMIN 3.9 G/DL (3.2-5.2); ALKALINE PHOSPHATASE 42 U/L (35-104); ALT/SGPT 43 U/L (7.0-40); AST/SGOT 26 U/L (<34); BILIRUBIN,DIRECT 0.1 MG/DL (<0.4); BILIRUBIN,TOTAL 0.4 MG/DL (0.3-1.2); BLOOD UREA NITROGEN 12 MG/DL (9-23); CALCIUM LEVEL 10.5 MG/DL (8.5-10.1); CARBON DIOXIDE LEVEL 26 MMOL/L (20-31); CHLORIDE LEVEL 105 MMOL/L (98-107); GLOMERULAR FILTRATION RATE > 60.0 (>60); GLUCOSE, FASTING 85 MG/DL (60-100); SODIUM LEVEL 138 MMOL/L (136-145); TOTAL PROTEIN 6.9 G/DL (5.7-8.2)
[2024-10-19 01:45] VITALS: BP 102/63; TEMP 97.3; O2SAT 98
== END 2024-10-19 01:51 | disposition home or self-care (01) ==
LOC: M ED 20:50
DX: K59.00 Constipation, unspecified (principal); K21.9 Gastro-esophageal reflux disease without esophagitis; J45.909 Unspecified asthma, uncomplicated; F17.210 Nicotine dependence, cigarettes, uncomplicated; G40.909 Epilepsy, unspecified, not intractable, without status epilepticus; Z91.040 Latex allergy status; Z79.2 Long term (current) use of antibiotics; Z79.899 Other long term (current) drug therapy

== ENCOUNTER 2025-03-03 22:38 | Emergency (ER) | payer OTHER ==
[~2025-03-03] VITALS: Ht 162.6 cm; Wt 53.7 kg
[~2025-03-03 22:38] MED LIST changes: +ALBU8.5H; +AZIT200S30; -NYST-13; +NYST0.1C; -PROZ20CA11 PO; +PROZ20CA12 PO
[2025-03-04 05:53] VITALS: BP 99/65; TEMP 98.8; O2SAT 98
== END 2025-03-04 05:59 | disposition home or self-care (01) ==
LOC: M ED 22:38
DX: K94.23 Gastrostomy malfunction (principal); F41.9 Anxiety disorder, unspecified; F32.A Depression, unspecified; F17.210 Nicotine dependence, cigarettes, uncomplicated; Z91.040 Latex allergy status; Z79.51 Long term (current) use of inhaled steroids; Z79.2 Long term (current) use of antibiotics; Z79.899 Other long term (current) drug therapy

== ENCOUNTER → 2025-04-09 | Outpatient (CLI) | payer OTHER ==
[~2025-04-09] MED LIST changes: -IBUP-1022 PO; +IBUP600T42 PO
[2025-04-09 16:08] LABS: BASO # 0.0 10^3/uL (0.0-0.2); BASO % 0.6 % (0.0-1.0); EOS # 0.1 10^3/uL (0.0-0.5); EOS % 1.0 % (0.0-3.0); LYMPH # 1.8 10^3/uL (1.5-5.0); LYMPH % 25.7 % (24.0-44.0); MONO # 0.5 10^3/uL (0.0-0.8); MONO % 7.5 % (2.0-8.0); NEUTROPHILS # 4.6 10^3/uL (1.5-8.5); NEUTROPHILS % 64.4 % (36.0-66.0); PLATELET COUNT, AUTOMATED 323 10^3/uL (150-450)
[2025-04-09 16:31] LABS: CALCIUM LEVEL 9.6 MG/DL (8.5-10.1); CARBON DIOXIDE LEVEL 29 MMOL/L (20-31); CHLORIDE LEVEL 107 MMOL/L (98-107); CHOLESTEROL LEVEL 161 MG/DL (<200); CHOLESTEROL RISK RATIO 3.18 (<5); CREATININE FOR GFR 0.55 MG/DL (0.55-1.30); GLOMERULAR FILTRATION RATE > 90.0 (>60); LDL CHOLESTEROL 86.9 MG/DL (<100); MAGNESIUM LEVEL 2.1 MG/DL (1.8-2.4); NON-HDL-C 110.5 MG/DL; POTASSIUM SERUM 3.4 MMOL/L (3.5-5.1); PTH INTACT 35.5 PG/ML (18.5-88.0); SODIUM LEVEL 142 MMOL/L (136-145); TRIGLYCERIDES LEVEL 118 MG/DL (<150)
[2025-04-09 16:33] LABS: VITAMIN B12 LEVEL 582 PG/ML (211-911)
[2025-04-09 17:02] LABS: ESTIMATED AVERAGE GLUCOSE 100.0 MG/DL (60-110)
== END ==
LOC: M EKG 15:19
PROVIDERS: ATTEND Nurse Practitioner Family
DX: R42 Dizziness and giddiness (principal)

== ENCOUNTER 2025-04-28 18:22 | Emergency (ER) | payer OTHER ==
[~2025-04-28] VITALS: Ht 162.6 cm; Wt 60.2 kg
[2025-04-28] MEDS: KETOROLAC 30 MG/ML 1 ML VIAL IV ONE (20:12)
[2025-04-28 20:17] LABS: BASO # 0.0 10^3/uL (0.0-0.2); BASO % 0.3 % (0.0-1.0); EOS # 0.0 10^3/uL (0.0-0.5); EOS % 0.2 % (0.0-3.0); LYMPH # 0.9 10^3/uL (1.5-5.0); LYMPH % 15.0 % (24.0-44.0); MONO # 0.8 10^3/uL (0.0-0.8); MONO % 13.7 % (2.0-8.0); NEUTROPHILS # 4.1 10^3/uL (1.5-8.5); NEUTROPHILS % 69.8 % (36.0-66.0); PLATELET COUNT, AUTOMATED 180 10^3/uL (150-450)
[2025-04-28 20:20] LABS: URINE PREG TEST NEGATIVE (NEGATIVE)
[2025-04-28 20:22] LABS: ALT/SGPT 19 U/L (7.0-40); AST/SGOT 38 U/L (<34); CALCIUM LEVEL 8.8 MG/DL (8.5-10.1); CARBON DIOXIDE LEVEL 23 MMOL/L (20-31); CHLORIDE LEVEL 104 MMOL/L (98-107); CK-MB VALUE MASS < 1.0 NG/ML (<3.6); CPK CREATINE PHOSPHOKINASE 72 U/L (34-145); CREATININE FOR GFR 0.46 MG/DL (0.55-1.30); GLOMERULAR FILTRATION RATE > 90.0 (>60); POTASSIUM SERUM 4.1 MMOL/L (3.5-5.1); SODIUM LEVEL 134 MMOL/L (136-145)
[2025-04-28] MEDS: NS (Normal Saline) 0.9% 1,000 ML IV ONE (22:40)
[2025-04-28 23:10] LABS: ERYTHROCYTE SEDIMENTATION RATE 6 mm/hr (0-20)
[2025-04-29 00:27] LABS: C REACTIVE PROTEIN QUANTITATIV 3.63 MG/DL (<1.0)
[2025-04-29 01:16] VITALS: BP 114/73; TEMP 98; O2SAT 100
== END 2025-04-29 01:20 | disposition home or self-care (01) ==
LOC: M ED 18:22 → EDBD 18:22 → M ED 04-29 01:20
DX: R09.1 Pleurisy (principal); R07.9 Chest pain, unspecified; K21.9 Gastro-esophageal reflux disease without esophagitis; Z91.040 Latex allergy status; Z79.51 Long term (current) use of inhaled steroids; Z79.899 Other long term (current) drug therapy
CPT/HCPCS: 71046; 80053; 82550; 82553; 84484; 84703; 85025; 85379; 85652; 86140; 93005; 96374; 99285; J1885

== ENCOUNTER → 2025-05-25 | Outpatient (REF) | payer OTHER ==
[~2025-05-25] MED LIST changes: +ACYC-438; +CEFD1CAP9 PO; +FLUC-1; +FLUO60TA; +NITR100C2; +PHEN-501
[2025-05-25 12:34] LABS: APPEARANCE, URINE CLOUDY (CLEAR); BACTERIA, URINE AUTO 2+ (NEGATIVE); BILIRUBIN, URINE AUTO NEGATIVE (NEGATIVE); BLOOD, URINE BLOOD 2+ (NEGATIVE); GLUCOSE, URINE (UA) AUTO NEGATIVE (NEGATIVE); KETONE, URINE AUTO NEGATIVE (NEGATIVE); LEUKOCYTE ESTERASE, URINE AUTO 2+ (NEGATIVE); MUCUS, URINE SMALL (NEGATIVE); NITRITE, URINE AUTO NEGATIVE (NEGATIVE); PROTEIN, URINE AUTO 1+ mg/dL (NEGATIVE); RBC, URINE AUTO 21 /HPF (0-3); SPECIFIC GRAVITY URINE AUTO 1.013 (1.002-1.035); SQUAMOUS EPITHELIAL CELL UR AU 1 /HPF (0-6); UROBILINOGEN, URINE AUTO 0.2 mg/dL (0.0-2.0); WBC, URINE AUTO TNTC /HPF (0-3)
== END ==
LOC: M LAB REF 12:14
PROVIDERS: ATTEND Physician Assistant
DX: N39.0 Urinary tract infection, site not specified (principal)

== ENCOUNTER 2025-05-27 04:43 | Emergency (ER) | payer OTHER ==
[~2025-05-27] VITALS: Ht 162.6 cm; Wt 61.9 kg
[~2025-05-27 04:43] MED LIST changes: -ACYC-438; -CEFD1CAP9 PO; -FLUC-1; -FLUO60TA; -NITR100C2; -PHEN-501
[2025-05-27] MEDS ORDERED: NITR100C2 (04:54)
[2025-05-27] MEDS ORDERED: PHEN-501 (04:54)
[2025-05-27] MEDS ORDERED: FLUC-1 (04:54)
[2025-05-27] MEDS ORDERED: FLUO60TA (04:54)
[2025-05-27] MEDS ORDERED: ACYC-438 (04:56)
[2025-05-27 05:31] LABS: BASO # 0.1 10^3/uL (0.0-0.2); BASO % 0.3 % (0.0-1.0); EOS # 0.0 10^3/uL (0.0-0.5); EOS % 0.0 % (0.0-3.0); LYMPH # 1.0 10^3/uL (1.5-5.0); LYMPH % 4.6 % (24.0-44.0); MONO # 1.5 10^3/uL (0.0-0.8); MONO % 7.2 % (2.0-8.0); NEUTROPHILS # 18.1 10^3/uL (1.5-8.5); NEUTROPHILS % 86.7 % (36.0-66.0); PLATELET COUNT, AUTOMATED 262 10^3/uL (150-450)
[2025-05-27] MEDS: IBUPROFEN 600 MG TAB PO ONE (05:32)
[2025-05-27 05:36] LABS: APPEARANCE, URINE CLEAR (CLEAR); BACTERIA, URINE AUTO 1+ (NEGATIVE); BILIRUBIN, URINE AUTO NEGATIVE (NEGATIVE); BLOOD, URINE BLOOD 1+ (NEGATIVE); GLUCOSE, URINE (UA) AUTO NEGATIVE (NEGATIVE); KETONE, URINE AUTO NEGATIVE (NEGATIVE); LEUKOCYTE ESTERASE, URINE AUTO NEGATIVE (NEGATIVE); NITRITE, URINE AUTO POSITIVE (NEGATIVE); PROTEIN, URINE AUTO 2+ mg/dL (NEGATIVE); RBC, URINE AUTO 15 /HPF (0-3); SPECIFIC GRAVITY URINE AUTO 1.024 (1.002-1.035); SQUAMOUS EPITHELIAL CELL UR AU 9 /HPF (0-6); UROBILINOGEN, URINE AUTO 4.0 mg/dL (0.0-2.0); WBC, URINE AUTO 18 /HPF (0-3)
[2025-05-27 05:56] LABS: ALT/SGPT 16 U/L (7.0-40); AST/SGOT 21 U/L (<34); CALCIUM LEVEL 9.7 MG/DL (8.5-10.1); CARBON DIOXIDE LEVEL 24 MMOL/L (20-31); CHLORIDE LEVEL 102 MMOL/L (98-107); CREATININE FOR GFR 0.63 MG/DL (0.55-1.30); GLOMERULAR FILTRATION RATE > 90.0 (>60); POTASSIUM SERUM 3.6 MMOL/L (3.5-5.1); SODIUM LEVEL 135 MMOL/L (136-145)
[2025-05-27 05:58] LABS: HCG, SERUM QUALITATIVE NEGATIVE (NEGATIVE)
[2025-05-27] MEDS ORDERED: ISOVUE-370 76% 100 ML VIAL As Ordered ONE (06:54)
[2025-05-27] MEDS: NS (Normal Saline) 0.9% 1,000 ML IV ONE (07:01)
[2025-05-27] MEDS: cefTRIAXone SOD 1 GM in DEXTROSE 5% (D5W) ADV/MINI-BAG 50 ML IV ONE (07:02)
[2025-05-27] MEDS: NS 0.9% IV STA (07:14)
[2025-05-27] MEDS: [UNRECOGNIZED DRUG - OTHER] IV STA (07:14)
[2025-05-27] MEDS ORDERED: CEFD1CAP9 PO (09:57)
[2025-05-27 10:00] VITALS: BP 101/58; TEMP 98.2; O2SAT 98
== END 2025-05-27 10:07 | disposition home or self-care (01) ==
LOC: M ED 04:43
DX: N10 Acute pyelonephritis (principal); K21.9 Gastro-esophageal reflux disease without esophagitis; Z91.040 Latex allergy status; Z79.2 Long term (current) use of antibiotics; Z79.899 Other long term (current) drug therapy; Z79.51 Long term (current) use of inhaled steroids
CPT/HCPCS: 74176; 80048; 80076; 81001; 83605; 83690; 84703; 85025; 87040; 87486; 87581; 87633; 87798; 96361; 96365; 99284; J0696

== ENCOUNTER → 2025-06-06 | Outpatient (CLI) | payer OTHER ==
[~2025-06-06] MED LIST changes: +ACYC-438; +CEFD1CAP9 PO; +FLUC-1; +FLUO60TA; +NITR100C2; +PHEN-501; +POTA-151 PO
== END ==
LOC: M PLAIMG 09:36
PROVIDERS: ATTEND Nurse Practitioner Family
DX: R42 Dizziness and giddiness (principal); I34.0 Nonrheumatic mitral (valve) insufficiency; I36.1 Nonrheumatic tricuspid (valve) insufficiency